=== PATIENT | male | born 1955 | race Caucasian/White ===

== ENCOUNTER → 2021-03-03 10:48 | Outpatient (BNVA) | payer BC, SELFPAY | PROVIDERS: Visit Provider Orthopaedic Surgery ==

== ENCOUNTER 2021-10-26 11:08 | Outpatient (REF) | payer MEDICARE, SELFPAY ==
--- NOTE | ~2021-10-26 | XR_ITS ---
EXAMINATION: XR HAND, RIGHT CLINICAL INFORMATION: Pain in right hand. COMPARISON: None TECHNIQUE: PA, lateral, and oblique views of the right hand. FINDINGS: There is no acute fracture or malalignment. There is moderate joint space narrowing of the radiocarpal joint with mild subchondral sclerosis. 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 There is adjacent soft tissue swelling. There is a flexion and radial angulation deformity at the 5th DIP joint. There is mild osteoarthritis of most of the rest of the IP joints. 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 Shcf-ui-taetacdn osteoarthritis of multiple additional joints as described above.
== END 2021-10-26 11:09 | disposition home or self-care (01) ==
LOC: HO.HOSX 11:08
PROVIDERS: PCP Internal Medicine; Visit Provider Orthopaedic Surgery
DX: M19.041 Primary osteoarthritis, right hand (principal); M19.042 Primary osteoarthritis, left hand
CPT/HCPCS: 73130; 99212

== ENCOUNTER 2023-10-19 07:28 | Outpatient (REF) | payer MEDICARE, SELFPAY ==
[2023-10-19 07:50] LABS: MANUAL DIFF FLAG NO
[2023-10-19 08:08] LABS: Basophils Percent Auto 0.6 % (0-2); Eosinophils Absolute Auto 0.2 X10*3/uL (0.0-0.4); Eosinophils Percent Auto 2.3 % (0-4); Hematocrit 37.5 % (42.0-52.0); Hemoglobin 13.8 g/dl (14.0-18.0); Imm Gran Abs Auto 0.03 X10*3/uL (0.00-0.03); Imm Gran Pct Auto 0.5 % (0.0-0.4); Lymphocytes Absolute Auto 1.7 X10*3/uL (1.2-4.9); Lymphocytes Percent Auto 26.2 % (20-40); Mean Corpuscular HGB Conc 36.8 g/dl (31.0-36.0); Mean Corpuscular Hemoglobin 34.2 pg (27.0-33.0); Mean Corpuscular Volume 92.8 fL (80.0-98.0); Mean Platelet Volume 9.4 fL (9.4-12.4); Monocytes Absolute Auto 0.5 X10*3/uL (0.1-1.2); Monocytes Percent Auto 7.4 % (2-11); Neutrophils Absolute Auto 4.2 x10*3/uL (2.0-8.3); Platelet Count 212 X10*3/uL (160-400); Red Blood Count 4.04 X10*6/uL (4.60-5.80); Red Cell Distribution Width 11.8 % (11.0-16.0); White Blood Count 6.6 X10*3/uL (4.8-10.8)
[2023-10-19 08:53] LABS: Alanine Aminotransferase 15 U/L (0-40); Alkaline Phosphatase 64 U/L (39-117); Anion Gap 11 (12-20); Aspartate Amino Transferase 20 U/L (5-37); Bilirubin Direct 0.3 mg/dL (0.0-0.5); Bilirubin Total 0.8 mg/dL (0.0-1.0); Blood Urea Nitrogen 11 mg/dL (9-16); Calcium 9.3 mg/dL (8.4-10.2); Carbon Dioxide 27 mmol/L (22-29); Chloride 98 mmol/L (96-108); Cholesterol 213 mg/dL (<200); Estimated Glomerular Filt Rate > 60; Glucose Fasting 97 mg/dL (60-99); HDL Cholesterol 101 mg/dL (>40); Iron 186 mcg/dL (45-160); LDL Cholesterol Calculated 104 mg/dL (<100); Percent Iron Saturation 72 % (15-50); Potassium 4.4 mmol/L (3.3-5.1); Sodium 132 mmol/L (135-145); Total Iron Binding Capacity 257 mcg/dL (228-428); Total Protein 6.6 g/dL (6.5-8.0); Triglycerides 40 mg/dL (<150); Unsaturated Iron Binding 71 ug/dL
[2023-10-19 09:02] LABS: PSA,Total (Free>4and<10) 2.58 ng/mL (0.00-4.00)
[2023-10-19 09:03] LABS: Ferritin 320 ng/mL (20-250); Thyroid Stimulating Hormone 1.79 uIU/mL (0.32-4.0)
== END 2023-10-19 07:29 | disposition home or self-care (01) ==
LOC: HO.LAB 07:28
PROVIDERS: PCP Internal Medicine; Visit Provider Internal Medicine
DX: Z00.00 Encounter for general adult medical examination without abnormal findings (principal); N40.0 Benign prostatic hyperplasia without lower urinary tract symptoms; K31.84 Gastroparesis; R14.2 Eructation; E78.00 Pure hypercholesterolemia, unspecified; Z12.5 Encounter for screening for malignant neoplasm of prostate
CPT/HCPCS: 36415; 80048; 80061; 80076; 82728; 83540; 84153; 84443; 85025

== ENCOUNTER 2023-10-24 13:31 | Outpatient (REF) | payer MEDICARE, SELFPAY ==
--- NOTE | ~2023-10-24 | CT_ITS ---
EXAMINATION: CT ABDOMEN AND PELVIS WITH CONTRAST CLINICAL INFORMATION: Gastroparesis and belching COMPARISON: None available. TECHNIQUE: Multidetector volumetric images were obtained from the superior aspect of the liver through the pubic symphysis following administration 85 mL of Omnipaque 350 intravenous contrast. Sagittal and coronal reformatted images were obtained on the technologist's workstation. Oral contrast: No This CT examination was performed using dose optimization techniques as appropriate, variously including the following: *Automated exposure control *Adjustment of mA and/or kV according to patient size (this includes techniques or standardized protocols for targeted exams where dose is matched to indication/reason for exam; i.e. extremities or head) *Use of iterative reconstruction technique DLP: 287 mGy-cm FINDINGS: LUNG BASES: The visualized lung bases are unremarkable. LIVER, GALLBLADDER, AND BILIARY TREE: There is a 6 mm too small to characterize focus in the lateral left lobe of the liver. There are tiny similar-appearing probable cysts are seen in the right lobe. No suspicious lesion or intrahepatic biliary dilatation. The gallbladder appears contracted. It is not completely evaluated. PANCREAS: Unremarkable. SPLEEN: Unremarkable. ADRENAL GLANDS: Unremarkable. KIDNEYS AND URETERS: The kidneys are normal in size, shape, and attenuation. No hydronephrosis, hydroureter, or calculi seen. No perinephric stranding. BLADDER: The bladder is decompressed and thick-walled. It is incompletely evaluated and I cannot exclude either a polyp or mass at the base of the bladder versus an appearance based on the posterior impressions from a heterogeneous prostate gland. GASTROINTESTINAL TRACT: No bowel obstruction or right or left lower quadrant inflammatory change. Fair amount of debris however is seen within the stomach compatible with the patient's history of gastroparesis. ABDOMINAL WALL: No significant hernia is appreciated. LYMPH NODES: Normal. VASCULAR: Aorta is atherosclerotic but nonaneurysmal. PELVIC VISCERA: Prominent heterogeneous appearing prostate. Please correlate with the patient's PSA and digital rectal examination. OSSEOUS STRUCTURES: Degenerative changes lumbar spine but no fracture. CT/CT abdomen pelvis w IV con IMPRESSION: Heterogeneous prominent prostate. Please see above comments. The gallbladder was decompressed. Fleischner guidelines were followed.
[2023-10-24] MEDS: Barium Sulfate Oral (Vanilla) 450 ML ORAL.SUSP 900 ML PO (15:34)
[2023-10-24] MEDS: iohexoL 350 MG/ML 100 ML INFUS..BTL IV (15:35)
== END 2023-10-24 13:32 | disposition home or self-care (01) ==
LOC: HO.CT 13:31
PROVIDERS: PCP Internal Medicine; Visit Provider Internal Medicine
DX: K31.84 Gastroparesis (principal); R14.2 Eructation
CPT/HCPCS: 74177; Q9967

== ENCOUNTER 2024-02-08 10:05 | Outpatient (REF) | payer MEDICARE, SELFPAY ==
[2024-02-08 12:03] LABS: Anion Gap 13 (12-20); Blood Urea Nitrogen 17 mg/dL (9-16); Calcium 9.3 mg/dL (8.4-10.2); Carbon Dioxide 29 mmol/L (22-29); Chloride 97 mmol/L (96-108); Estimated Glomerular Filt Rate > 60; Ferritin 357 ng/mL (20-250); Glucose Random 77 mg/dL (60-115); Iron 251 mcg/dL (45-160); Percent Iron Saturation 91 % (15-50); Potassium 4.2 mmol/L (3.3-5.1); Sodium 135 mmol/L (135-145); Total Iron Binding Capacity 276 mcg/dL (228-428); Unsaturated Iron Binding < 25 ug/dL
== END 2024-02-08 10:06 | disposition home or self-care (01) ==
LOC: HO.LAB 10:05
PROVIDERS: PCP Internal Medicine; Visit Provider Internal Medicine
DX: N40.0 Benign prostatic hyperplasia without lower urinary tract symptoms (principal); K31.84 Gastroparesis; E83.19 Other disorders of iron metabolism
CPT/HCPCS: 36415; 80048; 82728; 83540

== ENCOUNTER 2024-02-23 11:32 | Outpatient (REF) | payer MEDICARE, SELFPAY ==
[2024-02-23 12:04] LABS: MANUAL DIFF FLAG NO
[2024-02-23 12:21] LABS: Basophils Percent Auto 0.7 % (0-2); Eosinophils Absolute Auto 0.1 X10*3/uL (0.0-0.4); Eosinophils Percent Auto 1.1 % (0-4); Hematocrit 41.4 % (42.0-52.0); Hemoglobin 14.9 g/dl (14.0-18.0); Imm Gran Abs Auto 0.01 X10*3/uL (0.00-0.03); Imm Gran Pct Auto 0.2 % (0.0-0.4); Lymphocytes Absolute Auto 1.5 X10*3/uL (1.2-4.9); Lymphocytes Percent Auto 26.7 % (20-40); Mean Corpuscular Hemoglobin 32.7 pg (27.0-33.0); Mean Platelet Volume 9.8 fL (9.4-12.4); Monocytes Absolute Auto 0.4 X10*3/uL (0.1-1.2); Monocytes Percent Auto 7.2 % (2-11); Neutrophils Absolute Auto 3.5 x10*3/uL (2.0-8.3); Neutrophils Percent Auto 64.1 % (45-73); Platelet Count 173 X10*3/uL (160-400); Red Blood Count 4.55 X10*6/uL (4.60-5.80); Red Cell Distribution Width 11.8 % (11.0-16.0); White Blood Count 5.4 X10*3/uL (4.8-10.8)
[2024-02-23 13:12] LABS: Alanine Aminotransferase 16 U/L (0-40); Alkaline Phosphatase 63 U/L (39-117); Anion Gap 10 (12-20); Aspartate Amino Transferase 22 U/L (5-37); Bilirubin Direct 0.4 mg/dL (0.0-0.5); Blood Urea Nitrogen 17 mg/dL (9-16); Calcium 9.5 mg/dL (8.4-10.2); Carbon Dioxide 27 mmol/L (22-29); Chloride 101 mmol/L (96-108); Estimated Glomerular Filt Rate > 60; Glucose Random 83 mg/dL (60-115); Iron 203 mcg/dL (45-160); Percent Iron Saturation 85 % (15-50); Potassium 4.3 mmol/L (3.3-5.1); Sodium 134 mmol/L (135-145); Total Iron Binding Capacity 239 mcg/dL (228-428); Total Protein 6.5 g/dL (6.5-8.0); Unsaturated Iron Binding 36 ug/dL
[2024-02-23 13:15] LABS: Ferritin 358 ng/mL (20-250)
== END 2024-02-23 11:33 | disposition home or self-care (01) ==
LOC: HO.LAB 11:32
PROVIDERS: PCP Internal Medicine; Visit Provider Internal Medicine
DX: E83.19 Other disorders of iron metabolism (principal)
CPT/HCPCS: 36415; 80048; 80076; 82728; 83540; 85025

== ENCOUNTER → 2024-04-26 09:23 | Outpatient (BNV) | payer MEDICARE, SELFPAY | PROVIDERS: PCP Internal Medicine; Visit Provider Internal Medicine Medical Oncology | DX: E83.119 Hemochromatosis, unspecified (principal) | CPT/HCPCS: 99204; 99213 ==

== ENCOUNTER 2024-04-30 10:24 | Outpatient (REF) | payer MEDICARE, SELFPAY | END 2024-04-30 10:25 | disposition home or self-care (01) | LOC: HO.BBR 10:24 | PROVIDERS: Visit Provider Internal Medicine Medical Oncology | DX: Z13.89 Encounter for screening for other disorder (principal) ==

== ENCOUNTER 2024-05-31 10:12 | Outpatient (REF) | payer MEDICARE, SELFPAY ==
[2024-05-31 11:10] LABS: MANUAL DIFF FLAG NO
[2024-05-31 11:21] LABS: Basophils Percent Auto 0.4 % (0-2); Eosinophils Absolute Auto 0.1 X10*3/uL (0.0-0.4); Eosinophils Percent Auto 1.7 % (0-4); Hematocrit 40.5 % (42.0-52.0); Imm Gran Abs Auto 0.01 X10*3/uL (0.00-0.03); Imm Gran Pct Auto 0.2 % (0.0-0.4); Lymphocytes Absolute Auto 1.1 X10*3/uL (1.2-4.9); Lymphocytes Percent Auto 23.1 % (20-40); Mean Corpuscular Hemoglobin 34.7 pg (27.0-33.0); Mean Corpuscular Volume 93.8 fL (80.0-98.0); Mean Platelet Volume 10.1 fL (9.4-12.4); Monocytes Absolute Auto 0.4 X10*3/uL (0.1-1.2); Monocytes Percent Auto 7.6 % (2-11); Neutrophils Absolute Auto 3.1 x10*3/uL (2.0-8.3); Platelet Count 178 X10*3/uL (160-400); Red Blood Count 4.32 X10*6/uL (4.60-5.80); White Blood Count 4.6 X10*3/uL (4.8-10.8)
[2024-05-31 21:28] LABS: Ferritin 257 ng/mL (20-250); Iron 171 mcg/dL (45-160); Percent Iron Saturation 73 % (15-50); Total Iron Binding Capacity 234 mcg/dL (228-428); Unsaturated Iron Binding 63 ug/dL
== END 2024-05-31 10:13 | disposition home or self-care (01) ==
LOC: HO.BBR 10:12
PROVIDERS: PCP Internal Medicine; Visit Provider Internal Medicine Medical Oncology
DX: E83.110 Hereditary hemochromatosis (principal)
CPT/HCPCS: 36415; 82728; 83540; 85025

== ENCOUNTER 2024-07-04 08:53 | Outpatient (REF) | payer MEDICARE, SELFPAY ==
[2024-07-04 09:15] LABS: MANUAL DIFF FLAG NO
[2024-07-04 09:19] LABS: Basophils Percent Auto 0.5 % (0-2); Eosinophils Absolute Auto 0.1 X10*3/uL (0.0-0.4); Eosinophils Percent Auto 2.3 % (0-4); Imm Gran Abs Auto 0.01 X10*3/uL (0.00-0.03); Imm Gran Pct Auto 0.2 % (0.0-0.4); Lymphocytes Absolute Auto 1.1 X10*3/uL (1.2-4.9); Lymphocytes Percent Auto 24.6 % (20-40); Mean Corpuscular HGB Conc 37.5 g/dl (31.0-36.0); Mean Corpuscular Hemoglobin 34.7 pg (27.0-33.0); Mean Corpuscular Volume 92.6 fL (80.0-98.0); Mean Platelet Volume 9.6 fL (9.4-12.4); Monocytes Absolute Auto 0.3 X10*3/uL (0.1-1.2); Monocytes Percent Auto 6.4 % (2-11); Neutrophils Absolute Auto 2.9 x10*3/uL (2.0-8.3); Platelet Count 172 X10*3/uL (160-400); Red Blood Count 4.32 X10*6/uL (4.60-5.80); Red Cell Distribution Width 11.5 % (11.0-16.0); White Blood Count 4.4 X10*3/uL (4.8-10.8)
[2024-07-04 10:13] LABS: Iron 178 mcg/dL (45-160); Percent Iron Saturation 72 % (15-50); Total Iron Binding Capacity 247 mcg/dL (228-428); Unsaturated Iron Binding 69 ug/dL
[2024-07-04 10:20] LABS: Ferritin 208 ng/mL (20-250)
== END 2024-07-04 08:54 | disposition home or self-care (01) ==
LOC: HO.BBR 08:53
PROVIDERS: PCP Internal Medicine; Visit Provider Internal Medicine Medical Oncology
DX: E83.110 Hereditary hemochromatosis (principal)
CPT/HCPCS: 36415; 82728; 83540; 85025

== ENCOUNTER 2024-08-13 09:09 | Outpatient (REF) | payer MEDICARE, SELFPAY ==
[2024-08-13 09:29] LABS: MANUAL DIFF FLAG NO
[2024-08-13 09:32] LABS: Basophils Percent Auto 0.6 % (0-2); Eosinophils Absolute Auto 0.1 X10*3/uL (0.0-0.4); Eosinophils Percent Auto 1.2 % (0-4); Hematocrit 40.6 % (42.0-52.0); Hemoglobin 15.1 g/dl (14.0-18.0); Imm Gran Abs Auto 0.01 X10*3/uL (0.00-0.03); Imm Gran Pct Auto 0.2 % (0.0-0.4); Lymphocytes Absolute Auto 1.4 X10*3/uL (1.2-4.9); Lymphocytes Percent Auto 29.2 % (20-40); Mean Corpuscular HGB Conc 37.2 g/dl (31.0-36.0); Mean Corpuscular Hemoglobin 34.3 pg (27.0-33.0); Mean Corpuscular Volume 92.3 fL (80.0-98.0); Mean Platelet Volume 9.3 fL (9.4-12.4); Monocytes Absolute Auto 0.3 X10*3/uL (0.1-1.2); Monocytes Percent Auto 6.6 % (2-11); Neutrophils Percent Auto 62.2 % (45-73); Platelet Count 167 X10*3/uL (160-400); Red Cell Distribution Width 11.3 % (11.0-16.0); White Blood Count 4.9 X10*3/uL (4.8-10.8)
[2024-08-13 10:49] LABS: Iron 159 mcg/dL (45-160); Percent Iron Saturation 67 % (15-50); Total Iron Binding Capacity 239 mcg/dL (228-428); Unsaturated Iron Binding 80 ug/dL
[2024-08-13 10:56] LABS: Ferritin 156 ng/mL (20-250)
== END 2024-08-13 09:10 | disposition home or self-care (01) ==
LOC: HO.BBR 09:09
PROVIDERS: PCP Internal Medicine; Visit Provider Internal Medicine Medical Oncology
DX: E83.110 Hereditary hemochromatosis (principal)
CPT/HCPCS: 36415; 82728; 83540; 85025

== ENCOUNTER 2024-09-17 09:06 | Outpatient (REF) | payer MEDICARE, SELFPAY ==
[2024-09-17 09:26] LABS: Basophils Percent Auto 0.7 % (0-2); Eosinophils Absolute Auto 0.1 X10*3/uL (0.0-0.4); Eosinophils Percent Auto 1.2 % (0-4); Hemoglobin 14.7 g/dl (14.0-18.0); Lymphocytes Absolute Auto 1.3 X10*3/uL (1.2-4.9); Lymphocytes Percent Auto 29.6 % (20-40); MANUAL DIFF FLAG NO; Mean Corpuscular HGB Conc 36.8 g/dl (31.0-36.0); Mean Corpuscular Hemoglobin 33.9 pg (27.0-33.0); Mean Corpuscular Volume 92.2 fL (80.0-98.0); Mean Platelet Volume 9.4 fL (9.4-12.4); Monocytes Absolute Auto 0.3 X10*3/uL (0.1-1.2); Monocytes Percent Auto 6.4 % (2-11); Neutrophils Absolute Auto 2.6 x10*3/uL (2.0-8.3); Neutrophils Percent Auto 62.1 % (45-73); Platelet Count 183 X10*3/uL (160-400); Red Blood Count 4.34 X10*6/uL (4.60-5.80); Red Cell Distribution Width 11.5 % (11.0-16.0); White Blood Count 4.2 X10*3/uL (4.8-10.8)
[2024-09-17 11:27] LABS: Iron 135 mcg/dL (45-160); Percent Iron Saturation 53 % (15-50); Total Iron Binding Capacity 253 mcg/dL (228-428); Unsaturated Iron Binding 118 ug/dL
[2024-09-17 11:40] LABS: Ferritin 110 ng/mL (20-250)
== END 2024-09-17 09:07 | disposition home or self-care (01) ==
LOC: HO.BBR 09:06
PROVIDERS: PCP Internal Medicine; Visit Provider Internal Medicine Medical Oncology
DX: E83.110 Hereditary hemochromatosis (principal)
CPT/HCPCS: 36415; 82728; 83540; 85025

== ENCOUNTER 2024-10-22 09:00 | Outpatient (REF) | payer MEDICARE, SELFPAY ==
[2024-10-22 09:16] LABS: MANUAL DIFF FLAG NO
[2024-10-22 09:17] LABS: Basophils Percent Auto 0.6 % (0-2); Eosinophils Absolute Auto 0.1 X10*3/uL (0.0-0.4); Eosinophils Percent Auto 1.8 % (0-4); Hematocrit 42.7 % (42.0-52.0); Hemoglobin 15.6 g/dl (14.0-18.0); Imm Gran Abs Auto 0.01 X10*3/uL (0.00-0.03); Imm Gran Pct Auto 0.2 % (0.0-0.4); Lymphocytes Absolute Auto 1.5 X10*3/uL (1.2-4.9); Lymphocytes Percent Auto 30.2 % (20-40); Mean Corpuscular HGB Conc 36.5 g/dl (31.0-36.0); Mean Corpuscular Hemoglobin 33.7 pg (27.0-33.0); Mean Corpuscular Volume 92.2 fL (80.0-98.0); Mean Platelet Volume 9.3 fL (9.4-12.4); Monocytes Absolute Auto 0.3 X10*3/uL (0.1-1.2); Monocytes Percent Auto 6.5 % (2-11); Neutrophils Percent Auto 60.7 % (45-73); Platelet Count 183 X10*3/uL (160-400); Red Blood Count 4.63 X10*6/uL (4.60-5.80); Red Cell Distribution Width 11.6 % (11.0-16.0); White Blood Count 4.9 X10*3/uL (4.8-10.8)
[2024-10-22 09:59] LABS: Iron 206 mcg/dL (45-160); Percent Iron Saturation 75 % (15-50); Total Iron Binding Capacity 273 mcg/dL (228-428); Unsaturated Iron Binding 67 ug/dL
[2024-10-22 10:18] LABS: Ferritin 57 ng/mL (20-250)
--- OUTSIDE RECORDS SUMMARY | 2024-10-23 19:10 | XMS_ITS ---
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
--- OUTSIDE RECORDS SUMMARY | 2024-10-23 19:10 | XMS_ITS ---
Author Organization Ralf Landon DO, FACP Address [address] [place] [phone] Care Team Providers Care Stenciler Name Role Phone Ralf Landon Primary Care Provider ALLERGIES Allergen (clinical drug ingredient) Drug/Non Drug Allergy documented on EMR Reaction Allergy Type Onset Date Status tamsulosin Flomax retrograde ejaculation Drug Allergy Active REASON FOR REFERRAL Reason RUQ mass Diagnosis 1 Right upper quadrant abdominal mass (R19.01) Referral Organization Ralf Collins O, FACP Referring Provider First Name Ralf Referring Provider Last Name Barbi Referring Provider Speciality Internal M edicine Referred Provider Bam Chino Referred Provider Specialty General Surg mp General Notes Sulma Dorado 024 10:52:06 AM EST > referral faxed; [place] [facility] [facility] [place] patient to schedule appointment; patient aware., Cheryl Pennington 10/01/2024 02:30:30 PM EST > Marely and Dr. Chino's office said she spoke with Berna and when she reached out to the patient that the patient said he will call back when he is ready. Referral Priority Routine REASON FOR VISIT 6 month f/u, Follow up Hereditary hemochromatosis, Gastroparesis MEDICATIONS Medication SIG (Take, Route, Frequency, Duration) Notes Start Date End Date Status Motegrity 1 MG 1 tablet Orally Once a day Active Vitamin D (Cholecalciferol) 50 MCG (1999) 1 capsule Orally Once a day Active SOCIAL HISTORY Tobacco Use: Social History Observation Description Date Details (start date - stop date) Never Smoker NA - NA Sex Assigned At : Social History Observation Description Sex Assigned At Unknown Tobacco Use/Smoking Question Answer Notes Patient is a nonsmoker Additional Findings: Tobacco Non-User Cu rrent non-smoker, currently using no form of tobacco Alcohol Screen Question Answer Notes Did you have a drink contain ing alcohol in the past year? Yes How often did you have a dri nk containing alcohol in the past year? 2 to 3 times a week (3 points) How many drinks did you have on a typical day when you were drinking in the past year? 1 or 2 drinks (0 point) How often did you have 6 or more drinks on one occasion in the past year? Never (0 point) Points 3 Interpretation Negative Encounters Encounter Location Date Provider Diagnosis Ralf Landon DO, [address] [phone] 09/20/2024 Ralf Landon Hereditary hemochromatosis E83.110 ; Gastroparesis K31.84 ; Benign non-nodular prostatic hyperplasia without lower urinary tract symptoms N40.0 and Right upper quadrant abdominal mass R19.01 ASSESSMENTS Encounter Date Diagnosis Assessment Notes Treatment Notes Treatment Clinical Notes 09/20/2024 Hereditary hemochromatosis (ICD-10 - E83.110) Follow up with Hematology 09/20/2024 Gastroparesis (ICD-1 0 - K31.84) Follow up with GI. EGD next month. 09/20/2024 Benign non-nodular prostatic hyperplasia without lower urinary tract symptoms (ICD-10 - N40.0) 09/20/2024 Right upper quadrant abdominal mass (ICD-10 - R19.01) PLAN OF TREATMENT Medication Medication Name Sig Start Date Stop Date Notes Motegrity 1 MG 1 tablet Orally Once a day Vitamin D (Cholecalciferol) 50 MCG (1999 UT) 1 capsule Orally Once a day Treatment Notes Assessment Notes Hereditary hemochromatosis Follow up wit h Hematology Gastroparesis Follow up with GI. E GD next month. Pending Test Test Name Order Date CBC w DIFF 09/20/2024 LIPOPROTEIN FRACTIONATION (LIPID PANEL) 09/20/2024 PROFILE, FASTING 09/20/2024 TSH (THYROID STIMULATING HORMONE) 2023 PSA,Total (Free>4and<10) 09/20/2024 Referrals Referral Date Details RUQ Bam butts Ma rtinez Next Appt Details Follow Up: 4 Months, Reason: H&P,review lab work Provider Name:Ralf ruiz, 02/04/2025 09:00:00 AM, [address] [place] [address], [phone], Progress Notes * Examination Category Sub-Category Detail Notes General Examination GENERAL APPEARANCE: in no ac duckwater distress, well developed, well nourished LUNGS: breathing comfortabl y at rest MUSCULOSKELETAL: PSYCH: alert, oriented, cog nitive function intact History and Physical Notes * HPI (History of Present Illness) Category Sub-Category Detail Notes New symptom(s) Telehealth Location of provider:: Pro ko's home address Location of patient:: Address listed in demographics for today's visit Patient identification confirmed using:: Name, Telehealth method:: Video co nference where patient is visible to the provider of care Consent:: Patient verbally c onsented to treatment, Patient verbally consented to billing insurance company, Patient informed of any privacy concerns related to method of visit Total time spent with patient (mins): 25 Disclaimer: This Telehealth visit is being conducted per CDC recommendations due to the COVID-19 outbreak. Consultation Request Notes Referral Date Referring Provider Referred Provider Elizabeth bonilla 09/20/2024 Ralf Landon Francis RUQ mas s
--- OUTSIDE RECORDS SUMMARY | 2024-10-23 19:11 | XMS_ITS | Patient Health Record ---
Author Organization Ralf Landon DO, FAC Address [address] [place] [phone] Care Team Providers Care Copy Worker Name Role Phone Ralf Landon Primary Care Provider ALLERGIES Allergen (clinical drug ingredient) Drug/Non Drug Allergy documented on EMR Reaction Allergy Type Onset Date Status tamsulosin Flomax retrograde ejaculation Drug Allergy Active RESULTS Component Value Reference Range Notes CT abdomen pelvis w con Reviewed date:11/08/2023 11:14:33 PM Interpretation:Abnormal Performing Lab: Notes/Report: [address] [address] [address] Scan Report Signed Patient: Yusef Novak MR#: [id number] 66 : 1955 Acct:[id number] Age/Sex: 68 / M ADM Date: 10/24/23 Loc: HO.CT Attending Dr: Ralf Landon DO Ordering Physician: Ralf Landon DO Date of Service: 10/24/23 Procedure(s): CT abdomen pelvis w IV con Accession Number(s): [id number] cc: DR Dennis FLORES; Ralf Landon DO EXAMINATION: CT ABDOMEN AND PELVIS WITH CONTRAST CLINICAL INFORMATION: Gastroparesis and belching COMPARISON: None available. TECHNIQUE: Multidetector volumetric images were obtained from the superior aspect of the liver through the pubic symphysis following administration 85 mL of Omnipaque 350 intravenous contrast. Sagittal and coronal reformatted images were obtained on the technologist's workstation. Oral contrast: No This CT examination was performed using dose optimization techniques as appropriate, variously including the following: *Automated exposure control *Adjustment of mA and/or kV according to patient size (this includes techniques or standardized protocols for targeted exams where dose is matched to indication/reason for exam; i.e. extremities or head) *Use of iterative reconstruction technique DLP: 287 mGy-cm FINDINGS: LUNG BASES: The visualized lung bases are unremarkable. LIVER, GALLBLADDER, AND BILIARY TREE: There is a 6 mm too small to characterize focus in the lateral left lobe of the liver. There are tiny similar-appearing probable cysts are seen in the right lobe. No suspicious lesion or intrahepatic biliary dilatation. The gallbladder appears contracted. It is not completely evaluated. PANCREAS: Unremarkable. SPLEEN: Unremarkable. ADRENAL GLANDS: Unremarkable. KIDNEYS AND URETERS: The kidneys are normal in size, shape, and attenuation. No hydronephrosis, hydroureter, or calculi seen. No perinephric stranding. BLADDER: The bladder is decompressed and thick-walled. It is incompletely evaluated and I cannot exclude either a polyp or mass at the base of the bladder versus an appearance based on the posterior impressions from a heterogeneous prostate gland. GASTROINTESTINAL TRACT: No bowel obstruction or right or left lower quadrant inflammatory change. Fair amount of debris however is seen within the stomach compatible with the patient's history of gastroparesis. ABDOMINAL WALL: No significant hernia is appreciated. LYMPH NODES: Normal. VASCULAR: Aorta is atherosclerotic but nonaneurysmal. PELVIC VISCERA: Prominent heterogeneous appearing prostate. Please correlate with the patient's PSA and digital rectal examination. OSSEOUS STRUCTURES: Degenerative changes lumbar spine but no fracture. CT/CT abdomen pelvis w IV con IMPRESSION: Heterogeneous prominent prostate. Please see above comments. The gallbladder was decompressed. Fleischner guidelines were followed. Dictated By: Andrea Porras MD Signed By: <Electronically signed by Andrea Porras MD in OV> 11/08/23 1422 DD/ 1535 TD/TT: Ice Skating Teacher: Basic Metabolic Panel Reviewed date:02/08/2024 01:24:35 PM Interpretation:Normal Performing Lab:[facility], [address] [place] [phone] Notes/Report: Sodium 135 135-145 mmol/L Potassium 4.2 3.3-5.1 mmol/L Chloride 97 96-108 mmol/L Carbon Dioxide 29 22-29 mmol/L Anion Gap 13 12-20 Blood Urea Nitrogen 17 9-16 mg/dL Creatinine 1.03 0.5-1.4 mg/dL Estimated Glomerular Filt Rate > 60 NOTE: For -Citizen Of [place] individuals, multiply the result by 1.210. Chronic Kidney Disease: Estimated GFR < 60 mL/min/1.73m2 Severe Kidney Disease: Estimated GFR < 15 mL/min/1.73m2 Glucose Random 77 60-115 mg/dL Calcium 9.3 8.4-10.2 mg/dL IRON PROFILE Reviewed date:02/08/2024 01:25:09 PM Interpretation:Abnormal Performing Lab:[facility], [address] [place] [phone] Notes/Report: Iron 251 45-160 mcg/dL Total Iron Binding Capacity 276 228-428 mcg/d L Percent Iron Saturation 91 15-50 % Unsaturated Iron Binding < 25 Ferritin Reviewed date:02/08/2024 01:24:35 PM Interpretation:Abnormal Performing Lab:[facility], [address] [place] [phone] Notes/Report: Ferritin 357 20-250 ng/mL Complete Blood Count Auto Di ff Reviewed date:02/23/2024 12:32:10 PM Interpretation:Normal Performing Lab:[facility], [address] [place] [phone] Notes/Report: White Blood Count 5.4 4.8-10.8 X10*3/uL Red Blood Count 4.55 4.60-5.80 X10*6/uL Hemoglobin 14.9 14.0-18.0 g/dl Hematocrit 41.4 42.0-52.0 % Mean Corpuscular Volume 91.0 80.0-98.0 fL Mean Corpuscular Hemoglobin 32.7 27.0-33.0 pg Mean Corpuscular HGB Conc 36.0 31.0-36.0 g/dl Red Cell Distribution Width 11.8 11.0-16.0 % Platelet Count 173 160-400 X10*3/uL Mean Platelet Volume 9.8 9.4-12.4 fL Neutrophils Percent Auto 64.1 45-73 % Imm Gran Pct Auto 0.2 0.0-0.4 % Lymphocytes Percent Auto 26.7 20-40 % Monocytes Percent Auto 7.2 2-11 % Eosinophils Percent Auto 1.1 0-4 % Basophils Percent Auto 0.7 0-2 % NRBC Pct Auto 0.0 0.0-0.2 /100WBC Neutrophils Absolute Auto 3.5 2.0-8.3 x10*3/u L Imm Gran Abs Auto 0.01 0.00-0.03 X10*3/uL Lymphocytes Absolute Auto 1.5 1.2-4.9 X10*3/u L Monocytes Absolute Auto 0.4 0.1-1.2 X10*3/uL Eosinophils Absolute Auto 0.1 0.0-0.4 X10*3/u L Basophils Absolute Auto 0.0 0.0-0.2 X10*3/uL NRBC Abs Auto 0.000 0.0-0.012 X10*3/uL Liver Panel Reviewed date:02/23/2024 02:02:33 PM Interpretation:Normal Performing Lab:[address] [phone] Notes/Report: Bilirubin Total 1.0 0.0-1.0 mg/dL Bilirubin Direct 0.4 0.0-0.5 mg/dL Aspartate Amino Transferase 22 5-37 U/L Alanine Aminotransferase 16 0-40 U/L Total Protein 6.5 6.5-8.0 g/dL Albumin Level 4.0 3.5-5.0 g/dL Alkaline Phosphatase 63 39-117 U/L Basic Metabolic Panel Reviewed date:02/23/2024 02:02:33 PM Interpretation:Abnormal Performing Lab:[address] [phone] Notes/Report: Sodium 134 135-145 mmol/L Potassium 4.3 3.3-5.1 mmol/L Chloride 101 96-108 mmol/L Carbon Dioxide 27 22-29 mmol/L Anion Gap 10 12-20 Blood Urea Nitrogen 17 9-16 mg/dL Creatinine 0.97 0.5-1.4 mg/dL Estimated Glomerular Filt Rate > 60 NOTE: For -Citizen Of [place] individuals, multiply the result by 1.210. Chronic Kidney Disease: Estimated GFR < 60 mL/min/1.73m2 Severe Kidney Disease: Estimated GFR < 15 mL/min/1.73m2 Glucose Random 83 60-115 mg/dL Calcium 9.5 8.4-10.2 mg/dL IRON PROFILE Reviewed date:02/23/2024 02:02:33 PM Interpretation:Abnormal Performing Lab:[facility], [address] [place] [phone] Notes/Report: Iron 203 45-160 mcg/dL Total Iron Binding Capacity 239 228-428 mcg/d L Percent Iron Saturation 85 15-50 % Unsaturated Iron Binding 36 Ferritin Reviewed date:02/23/2024 02:02:57 PM Interpretation:Abnormal Performing Lab:[facility], [address] [place] [phone] Notes/Report: Ferritin 358 20-250 ng/mL Complete Blood Count Auto Di ff Reviewed date:2024 10:33:33 AM Interpretation:Abnormal Performing Lab:[facility], [address] [place] [phone] Notes/Report: White Blood Count 4.9 4.8-10.8 X10*3/uL Red Blood Count 4.58 4.60-5.80 X10*6/uL Hemoglobin 15.3 14.0-18.0 g/dl Hematocrit 42.0 42.0-52.0 % Mean Corpuscular Volume 91.7 80.0-98.0 fL Mean Corpuscular Hemoglobin 33.4 27.0-33.0 pg Mean Corpuscular HGB Conc 36.4 31.0-36.0 g/dl Red Cell Distribution Width 12.0 11.0-16.0 % Platelet Count 183 160-400 X10*3/uL Mean Platelet Volume 9.8 9.4-12.4 fL Neutrophils Percent Auto 63.4 45-73 % Imm Gran Pct Auto 0.2 0.0-0.4 % Lymphocytes Percent Auto 26.5 20-40 % Monocytes Percent Auto 6.9 2-11 % Eosinophils Percent Auto 2.0 0-4 % Basophils Percent Auto 1.0 0-2 % NRBC Pct Auto 0.0 0.0-0.2 /100WBC Neutrophils Absolute Auto 3.1 2.0-8.3 x10*3/u L Imm Gran Abs Auto 0.01 0.00-0.03 X10*3/uL Lymphocytes Absolute Auto 1.3 1.2-4.9 X10*3/u L Monocytes Absolute Auto 0.3 0.1-1.2 X10*3/uL Eosinophils Absolute Auto 0.1 0.0-0.4 X10*3/u L Basophils Absolute Auto 0.1 0.0-0.2 X10*3/uL NRBC Abs Auto 0.000 0.0-0.012 X10*3/uL Comprehensive Met. Panel Reviewed date:2024 11:49:01 AM Interpretation:Abnormal Performing Lab:[facility], [address] [place] [phone] Notes/Report: Sodium 136 135-145 mmol/L Potassium 4.5 3.3-5.1 mmol/L Chloride 102 96-108 mmol/L Carbon Dioxide 29 22-29 mmol/L Anion Gap 10 12-20 Blood Urea Nitrogen 14 9-16 mg/dL Creatinine 1.04 0.5-1.4 mg/dL Creatinine Clr Calc Pharmacy 64.9 eGFR (calculated from the MDRD study equation) and eCrCl (calculated from the Cockcroft-Gault equation) are based on different parameters and may not yield comparable results. If eCrCl result is absurd, please check patient's height/weight. Estimated Glomerular Filt Rate > 60 NOTE: For -Citizen [place] individuals, multiply the result by 1.210. Chronic Kidney Disease: Estimated GFR < 60 mL/min/1.73m2 Severe Kidney Disease: Estimated GFR < 15 mL/min/1.73m2 Glucose Random 78 60-115 mg/dL Calcium 9.9 8.4-10.2 mg/dL Bilirubin Total 1.3 0.0-1.0 mg/dL Aspartate Amino Transferase 24 5-37 U/L Alanine Aminotransferase 17 0-40 U/L Total Protein 6.6 6.5-8.0 g/dL Albumin Level 4.1 3.5-5.0 g/dL Alkaline Phosphatase 63 39-117 U/L IRON PROFILE Reviewed date:2024 11:49:01 AM Interpretation:Abnormal Performing Lab:[facility], [address] [place] [phone] Notes/Report: Iron 254 45-160 mcg/dL Total Iron Binding Capacity 279 228-428 mcg/d L Percent Iron Saturation 91 15-50 % Unsaturated Iron Binding < 25 Ferritin Reviewed date:2024 11:49:01 AM Interpretation:Abnormal Performing Lab:[facility], [address] [place] [phone] Notes/Report: Ferritin 377 20-250 ng/mL Alpha Fetoprotein Reviewed date:04/29/2024 01:02:20 PM Interpretation:Normal Performing Lab:[address] [phone] Notes/Report: Alpha Fetoprotein 5.2 <6.1 ng/mL This test was performed using the Christie Mims chemiluminescent method. Values obtained from different assay methods cannot be used interchangeably. AFP levels, regardless of value, should not be interpreted as absolute evidence of the presence or absence of disease. THIS TEST WAS PERFORMED AT: [facility] [address] [place] [phone] MD Harjinder FERRO Reviewed date:2024 10:32:55 AM Interpretation:Hold Performing Lab:[facility], [address] [place] [phone] Notes/Report: Harjinder Vaz See Note Specimen held untested for 24 hours; Call to request Chemistry testing. Complete Blood Count Auto Di ff Reviewed date:08/27/2024 12:41:55 PM Interpretation:Abnormal Performing Lab:[address] [phone] Notes/Report: White Blood Count 5.3 4.8-10.8 X10*3/uL Red Blood Count 4.24 4.60-5.80 X10*6/uL Hemoglobin 14.6 14.0-18.0 g/dl Hematocrit 39.1 42.0-52.0 % Mean Corpuscular Volume 92.2 80.0-98.0 fL Mean Corpuscular Hemoglobin 34.4 27.0-33.0 pg Mean Corpuscular HGB Conc 37.3 31.0-36.0 g/dl Red Cell Distribution Width 11.9 11.0-16.0 % Platelet Count 200 160-400 X10*3/uL Mean Platelet Volume 9.4 9.4-12.4 fL Neutrophils Percent Auto 68.9 45-73 % Imm Gran Pct Auto 0.4 0.0-0.4 % Lymphocytes Percent Auto 22.1 20-40 % Monocytes Percent Auto 7.2 2-11 % Eosinophils Percent Auto 0.8 0-4 % Basophils Percent Auto 0.6 0-2 % NRBC Pct Auto 0.0 0.0-0.2 /100WBC Neutrophils Absolute Auto 3.6 2.0-8.3 x10*3/u L Imm Gran Abs Auto 0.02 0.00-0.03 X10*3/uL Lymphocytes Absolute Auto 1.2 1.2-4.9 X10*3/u L Monocytes Absolute Auto 0.4 0.1-1.2 X10*3/uL Eosinophils Absolute Auto 0.0 0.0-0.4 X10*3/u L Basophils Absolute Auto 0.0 0.0-0.2 X10*3/uL NRBC Abs Auto 0.000 0.0-0.012 X10*3/uL Comprehensive Met. Panel Reviewed date:08/27/2024 12:41:55 PM Interpretation:Normal Performing Lab:[facility], [address] [place] [phone] Notes/Report: Sodium 135 135-145 mmol/L Potassium 4.4 3.3-5.1 mmol/L Chloride 102 96-108 mmol/L Carbon Dioxide 26 22-29 mmol/L Anion Gap 11 12-20 Blood Urea Nitrogen 12 9-16 mg/dL Creatinine 1.06 0.5-1.4 mg/dL Creatinine Clr Calc Pharmacy 64.1 eGFR (calculated from the MDRD study equation) and eCrCl (calculated from the Cockcroft-Gault equation) are based on different parameters and may not yield comparable results. If eCrCl result is absurd, please check patient's height/weight. Estimated Glomerular Filt Rate > 60 NOTE: For -Citizen [place] individuals, multiply the result by 1.210. Chronic Kidney Disease: Estimated GFR < 60 mL/min/1.73m2 Severe Kidney Disease: Estimated GFR < 15 mL/min/1.73m2 Glucose Random 95 60-115 mg/dL Calcium 10.1 8.4-10.2 mg/dL Bilirubin Total 0.8 0.0-1.0 mg/dL Aspartate Amino Transferase 23 5-37 U/L Alanine Aminotransferase 16 0-40 U/L Total Protein 7.0 6.5-8.0 g/dL Albumin Level 4.3 3.5-5.0 g/dL Alkaline Phosphatase 55 39-117 U/L IRON PROFILE Reviewed date:08/27/2024 12:41:55 PM Interpretation:Abnormal Performing Lab:[facility], [address] [place] [phone] Notes/Report: Iron 137 45-160 mcg/dL Total Iron Binding Capacity 267 228-428 mcg/d L Percent Iron Saturation 51 15-50 % Unsaturated Iron Binding 130 Ferritin Reviewed date:08/27/2024 12:41:55 PM Interpretation:Normal Performing Lab:[facility], [address] [place] [phone] Notes/Report: Ferritin 91 20-250 ng/mL Alpha Fetoprotein Reviewed date:08/29/2024 11:20:13 AM Interpretation:Normal Performing Lab:[facility], [address] [place] [phone] Notes/Report: Alpha Fetoprotein 5.8 <6.1 ng/mL This test was performed using the Christie Mims chemiluminescent method. Values obtained from different assay methods cannot be used interchangeably. AFP levels, regardless of value, should not be interpreted as absolute evidence of the presence or absence of disease. THIS TEST WAS PERFORMED AT: [facility] [address] [place] [phone] MD Harjinder FERRO Reviewed date:08/27/2024 12:41:55 PM Interpretation:Hold Performing Lab:[facility], [address] [place] [phone] Notes/Report: Harjinder Vaz See Note Specimen held untested for 24 hours; Call to request Chemistry testing. REASON FOR REFERRAL Reason Gastroparesis Diagnosis 1 Gastroparesis (K31.8 4) Referral Organization Ralf Carpenter, FACP Referring Provider First Name Ralf Referring Provider Last Name Barbi Referring Provider Speciality Internal M edicine Referred Provider Annabelle Cardoso Referred Provider Specialty Gastroentero logy General Notes Cehryl Pennington 11:45:14 AM EST > Referral faxed prior to scheduling. Patient will schedule this appointment himself., Sulma Dorado 03/15/2024 10:52:59 AM EDT > 03/15/2024 office note, 02/23/2024 and 05/08/2021 lab reports, 2018 colonoscopy report faxed to specialist. Referral Priority Routine Reason Hereditary hemochrom atosis Diagnosis 1 Hereditary hemochrom atosis (E83.110) Referral Organization Ralf Carpenter FACP Referring Provider First Name Ralf Referring Provider Uriel Name Barbi Ref[facility] Referred Provider Vidya Donnelly Referred Provider Specialty Hematology/O ncology General Notes Cheryl Pennington 4 04:28:31 PM EDT > Referral and notes faxed to [phone] Referral Priority Routine Reason Hereditary hemochrom atosis Diagnosis 1 Hereditary hemochrom atosis (E83.110) Referral Organization Ralf Carpenter FACP Referring Provider First Name Ralf Referring Provider Uriel Name Barbi [facility] Referred Provider Sherrie John Referred Provider Specialty Hematology/O ncology General Notes Cheryl Pennington 4 04:11:42 PM EDT > Referral faxed prior to scheduling, Cheryl Pennington 04/10/2024 09:30:18 AM EDT > Dr. Donnelly's office will contact patient and patient is aware. Referral Priority Routine Referral Appointment Date 2024 Reason RUQ mass Diagnosis 1 Right upper quadrant abdominal mass (R19.01) Referral Organization Ralf Carpenter FACP Referring Provider First Name Ralf Referring Provider Uriel Name Barbi Referring Provider [facility] Internal edicine Referred Provider Bam Chino Referred Provider Specialty General Surg mp General Notes Sulma Dorado 024 10:52:06 AM EST > referral faxed; Berna @ [facility] will call patient to schedule appointment; patient aware., Cheryl Pennington 10/01/2024 02:30:30 PM EST > Marely and Dr. Chino's office said she spoke with Berna and when she reached out to the patient that the patient said he will call back when he is ready. Referral Priority Routine Reason Right foot pain with weight-bearing/ambulating Diagnosis 1 Right foot pain (M79 .671) Referral Organization Ralf Carpenter FACP Referring Provider First Name Ralf Referring Provider Uriel Name Barbi Referring Provider Speciality Internal edicine Referred Provider Sheldon Cadena Referred Provider Specialty Physical The rapist General Notes Sulma Dorado 024 12:46:23 PM EST > referral initiated at patient's request. Referral faxed. Referral Priority Routine Referral Appointment Date 10/02/2024 MEDICATIONS Medication SIG (Take, Route, Frequency, Duration) Notes Start Date End Date Status Motegrity 1 MG 1 tablet Orally Once a day Active Vitamin D (Cholecalciferol) 50 MCG (1999 UT) 1 capsule Orally Once a day Active IMMUNIZATIONS Vaccine Route Administration Date Status Comme nts Hepatitis B (20 and more) Unknown 05/02/2011 Administer ed Td (adult) Unknown 01/19/2007 Administered Influenza IM Intramuscular 09/21/2012 Administered Influenza Unknown 09/25/2013 Administered Influenza Unknown 09/12/2014 Administered Influenza Quad IM Intramuscular 09/15/2016 Administered Zoster Vaccine SC Subcutaneous 03/23/2017 Administered Influenza IM Intramuscular 10/12/2017 Administered TDaP IM Intramuscular 06/30/2017 Administered Influenza Quad IM Intramuscular 09/22/2020 Administered Influenza Quad IM Intramuscular 09/02/2021 Administered COVID-19 Pfizer BioNTech Unknown 03/01/2021 Administere d COVID-19 Pfizer BioNTech Unknown 04/24/2022 Administere d Influenza Quad Unknown 09/29/2018 Administered COVID-19 Pfizer BioNTech Unknown 02/04/2021 Administere d COVID-19 Pfizer BioNTech Unknown 09/23/2021 Administere d Shingrix Unknown 10/23/2020 Administered Influenza Quad Unknown 09/24/2019 Administered Influenza Quad IM Intramuscular 09/06/2022 Administered Influenza Quad Unknown 10/24/2023 Administered PCV 20 Unknown 09/04/2024 Administered SOCIAL HISTORY Tobacco Use: Social History Observation [...] Never (0 point) Points 3 Interpretation Negative PROBLEMS Problem Type ICD Code Onset Dates Problem Status W/U Status Risk SNOMED Code Notes Problem Hereditary hemochromatosis (E83.110) Active confirmed 23339041 Problem Gastroparesis (K31.84) Active confirmed 107097359 Problem Right foot pain (M79.671) Active confirmed Pain in right foot (111998050983 107) Problem Benign non-nodular prostatic hyperplasia without lower urinary tract symptoms (N40.0) Active confirmed 401460644 Problem Sleep disturbance (G47.9) Active confirmed 78386426 Problem 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) Active confirmed 00046730 VITAL SIGNS Height 68.25 in 03/15/2024 Encounters Encounter Location Date Provider Diagnosis Ralf Landon DO, [address] [id number] 11/28/2023 Ralf Landon DO, [address] [id number] 11/08/2023 Ralf Landon DO, [address] [id number] 02/14/2024 Ralf Landon Iron excess E83.19 Ralf Landon DO, [address] [id number] 04/03/2024 Ralf Landon Hereditary hemochromatosis E83.110 Ralf Landon DO, [address] [id number] 04/15/2024 Ralf Landon DO, [address] [id number] 09/27/2024 Ralf Landon DO, [address] [id number] 11/17/2023 Ralf Landon Benign non-nodular prostatic hyperplasia without lower urinary tract symptoms N40.0 ; Gastroparesis K31.84 and Iron excess E83.19 Ralf Landon DO, [address] [id number] 03/15/2024 Ralf Landon Hereditary hemochromatosis E83.110 and Gastroparesis K31.84 Ralf Landon DO [address] [id number] 09/20/2024 Ralf Landon Hereditary hemochromatosis E83.110 ; Gastroparesis K31.84 ; Benign non-nodular prostatic hyperplasia without lower urinary tract symptoms N40.0 and Right upper quadrant abdominal mass R19.01 ASSESSMENTS Encounter Date Diagnosis Assessment Notes Treatment Notes Treatment Clinical Notes 02/14/2024 Iron excess (ICD-10 - E83.19) 04/03/2024 Hereditary hemochromatosis (ICD-10 - E83.110) 11/17/2023 Gastroparesis (ICD-1 0 - K31.84) Follow up with GI 11/17/2023 Benign non-nodular prostatic hyperplasia without lower urinary tract symptoms (ICD-10 - N40.0) Urology has advised Yusef to stop the tamsulosin when he runs out of it. He is s/p aquablation of his prostate. He will follow up with Urology and undergo Uroflow 03/15/2024 Hereditary hemochromatosis (ICD-10 - E83.110) Avoid iron supplements. Avoid Vitamin C supplements. Avoid raw shellfish. Avoid alcohol. Refer to GI for liver elastography and therapeutic phlebotomies 03/15/2024 Gastroparesis (ICD-1 0 - K31.84) 09/20/2024 Hereditary hemochromatosis (ICD-10 - E83.110) Follow up with Hematology 09/20/2024 Gastroparesis (ICD-1 0 - K31.84) Follow up with GI. EGD next month. 11/17/2023 Iron excess (ICD-10 - E83.19) Stop alcohol. Repeat iron studies and ferritin in 3 months 09/20/2024 Benign non-nodular prostatic hyperplasia without lower urinary tract symptoms (ICD-10 - N40.0) 09/20/2024 Right upper quadrant abdominal mass (ICD-10 - R19.01) PLAN OF TREATMENT Pending Test Test Name Order Date CBC w DIFF 09/20/2024 LIPOPROTEIN FRACTIONATION (LIPID PANEL) 09/20/2024 PROFILE, FASTING 09/20/2024 TSH (THYROID STIMULATING HORMONE) 2023 PSA,Total (Free>4and<10) 09/20/2024 Next Appt Details Provider Name:Ralf Servin Marquisbrenda joseph, 02/04/2025 09:00:00 AM, [address] [place] [address], [phone], Insurance Providers Payer Name Payer Address Payer Phone Subscriber Number Group Number Insured Name Patient Relationship to Insured Coverage Start Date Coverage End Date MEDICARE [address] [place] [phone] [id number] Yusef Novak Self - patient is the insured MEDEX [address] [place] [address] [id number] Yusef Novak Self - patient is the insured MEDICAL (GENERAL) HISTORY Medical History History ICD Code benign prostatic hyperplasia (BPH) gastroesophageal reflux disease (GERD) lyme disease neuropathy allergies atypical chest pain Benign non-nodular prostatic hyperplasia without lower urinary tract symptoms N40.0 Gastroparesis K31.84 Iron excess E83.19 Hereditary hemochromatosis E83.110 Surgical History Surgery Date(Month/Year) tonsillectomy and adenoidectomy cystoscopy
--- OUTSIDE RECORDS SUMMARY | 2024-10-23 19:11 | XMS_ITS ---
Author Organization Ralf Landon DO [facility] Address [address] [place] [phone] Care Team Providers Care Call Specialist Name Role Phone Ralf Landon Primary Care Provider REASON FOR VISIT FYI Encounters Encounter Location Date Provider Diagnosis Ralf Landon DO, [address] [id number] 04/15/2024 Ralf Landon PLAN OF TREATMENT Next Appt Details Provider Name:Ralf ruiz, 02/04/2025 09:00:00 AM, [address] [place] [address], [phone],
== END 2024-10-22 09:01 | disposition home or self-care (01) ==
LOC: HO.BBR 09:00
PROVIDERS: PCP Internal Medicine; Visit Provider Internal Medicine Medical Oncology
DX: E83.110 Hereditary hemochromatosis (principal)
CPT/HCPCS: 36415; 82728; 83540; 85025

== ENCOUNTER 2024-11-26 08:56 | Outpatient (REF) | payer MEDICARE, SELFPAY ==
[2024-11-26 09:11] LABS: MANUAL DIFF FLAG NO
[2024-11-26 09:14] LABS: Basophils Percent Auto 0.7 % (0-2); Eosinophils Absolute Auto 0.1 X10*3/uL (0.0-0.4); Eosinophils Percent Auto 1.5 % (0-4); Hemoglobin 15.6 g/dl (14.0-18.0); Imm Gran Abs Auto 0.02 X10*3/uL (0.00-0.03); Imm Gran Pct Auto 0.4 % (0.0-0.4); Lymphocytes Absolute Auto 1.3 X10*3/uL (1.2-4.9); Lymphocytes Percent Auto 29.1 % (20-40); Mean Corpuscular HGB Conc 37.1 g/dl (31.0-36.0); Mean Corpuscular Hemoglobin 33.5 pg (27.0-33.0); Mean Corpuscular Volume 90.3 fL (80.0-98.0); Mean Platelet Volume 9.4 fL (9.4-12.4); Monocytes Absolute Auto 0.3 X10*3/uL (0.1-1.2); Monocytes Percent Auto 7.3 % (2-11); Neutrophils Absolute Auto 2.8 x10*3/uL (2.0-8.3); Platelet Count 181 X10*3/uL (160-400); Red Blood Count 4.65 X10*6/uL (4.60-5.80); Red Cell Distribution Width 11.5 % (11.0-16.0); White Blood Count 4.5 X10*3/uL (4.8-10.8)
--- OUTSIDE RECORDS SUMMARY | 2024-11-26 09:27 | XMS_ITS ---
Author Organization Ralf Landon DO, FACP Address [address] [place] [phone] Care Team Providers Care Quality Assurance Technician Name Role Phone Ralf Landon Primary Care Provider REASON FOR VISIT FYI Encounters Encounter Location Date Provider Diagnosis Ralf Landon DO [address] [id number] 04/15/2024 Ralf Landon PLAN OF TREATMENT No Information
--- OUTSIDE RECORDS SUMMARY | 2024-11-26 09:27 | XMS_ITS ---
Author Organization Ralf Landon DO, FACP Address [address] [place] [address] [phone] Care Team Providers Care Financial Accounting Manager Name Role Phone Ralf Landon Primary Care [...] AM EST > referral faxed; Berna [place] [facility] [place] will call patient to schedule appointment; [...] Encounters Encounter Location Date Provider Diagnosis Ralf Servin Barbi DO, [address] [id number] 09/20/2024 Ralf Landon Hereditary hemochromatosis E83.110 ; [...] Up: 4 Months, Reason: H&P,review lab work Progress Notes * Examination Category Sub-Category Detail Notes General Examination GENERAL APPEARANCE: in no ac [place] distress, well developed, well nourished LUNGS: breathing comfortabl y at rest MUSCULOSKELETAL: PSYCH: alert, oriented, cog nitive function intact History and Physical Notes * HPI (History of Present Illness) Category Sub-Category Detail Notes New symptom(s) Telehealth Location of provider:: Pro cardonar's home address Location of patient:: Address listed [...]
--- OUTSIDE RECORDS SUMMARY | 2024-11-26 09:27 | XMS_ITS ---
Author Organization Ralf Landon DO [facility] Address [address] [place] [address] [phone] Care Team Providers Care Campaign Management Specialist Name Role Phone Ralf Landon Primary Care Provider REASON FOR VISIT Needs referral Encounters Encounter Location Date Provider Diagnosis Ralf Landon DO [address] [id number] 09/27/2024 Ralf Landon PLAN OF TREATMENT No Information
--- OUTSIDE RECORDS SUMMARY | 2024-11-26 09:28 | XMS_ITS | Patient Health Record ---
Author Organization Ralf Landon DO, [facility] Address [address] [place] [address] [phone] Care Team Providers Care Management Instructor Name Role Phone Ralf Landon Primary Care Provider ALLERGIES Allergen (clinical drug ingredient) Drug/Non Drug Allergy documented on EMR Reaction Allergy Type Onset Date Status tamsulosin Flomax retrograde ejaculation Drug Allergy Active RESULTS Component Value Reference Range Notes Basic Metabolic Panel Reviewed date:02/08/2024 01:24:35 PM Interpretation:Normal Performing Lab:[facility], [address] [place] [phone] Notes/Report: Sodium 135 135-145 mmol/L Potassium 4.2 3.3-5.1 mmol/L Chloride 97 96-108 mmol/L Carbon Dioxide 29 22-29 mmol/L Anion Gap 13 12-20 Blood Urea Nitrogen 17 9-16 mg/dL Creatinine 1.03 0.5-1.4 mg/dL Estimated Glomerular Filt Rate > 60 NOTE: For -Ivorian individuals, multiply the result by 1.210. Chronic Kidney Disease: Estimated GFR < 60 mL/min/1.73m2 Severe Kidney Disease: Estimated GFR < 15 mL/min/1.73m2 Glucose Random 77 60-115 mg/dL Calcium 9.3 8.4-10.2 mg/dL IRON PROFILE Reviewed date:02/08/2024 01:25:09 PM Interpretation:Abnormal Performing Lab:[facility], [address] [place] [phone] Notes/Report: Iron 251 45-160 mcg/dL Total Iron Binding Capacity 276 228-428 mcg/d L Percent Iron Saturation 91 15-50 % Unsaturated Iron Binding < 25 Ferritin Reviewed date:02/08/2024 01:24:35 PM Interpretation:Abnormal Performing Lab:[facility], [address] [place] [phone] Notes/Report: Ferritin 357 20-250 ng/mL Complete Blood Count Auto Di ff Reviewed date:02/23/2024 12:32:10 PM Interpretation:Normal Performing Lab:[facility], [address] [place] [phone] Notes/Report: White Blood Count 5.4 4.8-10.8 X10*3/uL [...] Panel Reviewed date:02/23/2024 02:02:33 PM Interpretation:Normal Performing Lab:[facility], [address] [place] [phone] Notes/Report: Bilirubin Total 1.0 0.0-1.0 mg/dL Bilirubin Direct 0.4 0.0-0.5 mg/dL Aspartate Amino Transferase 22 5-37 U/L Alanine Aminotransferase 16 0-40 U/L Total Protein 6.5 6.5-8.0 g/dL Albumin Level 4.0 3.5-5.0 g/dL Alkaline Phosphatase 63 39-117 U/L Basic Metabolic Panel Reviewed date:02/23/2024 02:02:33 PM Interpretation:Abnormal Performing Lab:[facility], [address] [place] [phone] Notes/Report: Sodium 134 135-145 mmol/L Potassium 4.3 3.3-5.1 mmol/L Chloride 101 96-108 mmol/L Carbon Dioxide 27 22-29 mmol/L Anion Gap 10 12-20 Blood Urea Nitrogen 17 9-16 mg/dL Creatinine 0.97 0.5-1.4 mg/dL Estimated Glomerular Filt Rate > 60 NOTE: For -Ivorian individuals, multiply the result by 1.210. Chronic Kidney Disease: Estimated GFR < 60 mL/min/1.73m2 Severe Kidney Disease: Estimated GFR < 15 mL/min/1.73m2 Glucose Random 83 60-115 mg/dL Calcium 9.5 8.4-10.2 mg/dL IRON PROFILE Reviewed date:02/23/2024 02:02:33 PM Interpretation:Abnormal Performing Lab:[facility], [address] [place] [phone] Notes/Report: Iron 203 45-160 mcg/dL Total Iron Binding Capacity 239 228-428 mcg/d L Percent Iron Saturation 85 15-50 % Unsaturated Iron Binding 36 Ferritin Reviewed date:02/23/2024 02:02:57 PM Interpretation:Abnormal Performing Lab:[facility], [address] [place] [phone] Notes/Report: Ferritin 358 20-250 ng/mL Complete Blood Count Auto Di ff Reviewed date:2024 10:33:33 AM Interpretation:Abnormal Performing Lab:[facility], [address] [place] [phone] Notes/Report: White Blood Count 4.9 4.8-10.8 X10*3/uL [...] Panel Reviewed date:2024 11:49:01 AM Interpretation:Abnormal Performing Lab:[facility], [address] [place] [phone] Notes/Report: Sodium 136 135-145 mmol/L Potassium 4.5 [...] Glomerular Filt Rate > 60 NOTE: For -Ivorian individuals, multiply the result by 1.210. Chronic [...] PROFILE Reviewed date:2024 11:49:01 AM Interpretation:Abnormal Performing Lab:[facility], [address] [place] [phone] Notes/Report: Iron 254 45-160 mcg/dL Total Iron Binding Capacity 279 228-428 mcg/d L Percent Iron Saturation 91 15-50 % Unsaturated Iron Binding < 25 Ferritin Reviewed date:2024 11:49:01 AM Interpretation:Abnormal Performing Lab:[facility], [address] [place] [phone] Notes/Report: Ferritin 377 20-250 ng/mL Alpha Fetoprotein Reviewed date:04/29/2024 01:02:20 PM Interpretation:Normal Performing Lab:[facility], [address] [place] [phone] Notes/Report: Alpha Fetoprotein 5.2 <6.1 ng/mL This test was performed using the Christie Harrison chemiluminescent method. Values obtained from different assay methods cannot be used interchangeably. AFP levels, regardless of value, should not be interpreted as absolute evidence of the presence or absence of disease. THIS TEST WAS PERFORMED AT: [facility] [address] [place] [phone] MICHAEL ALONZO MD Harjinder Vaz Reviewed date:2024 10:32:55 AM Interpretation:Hold Performing Lab:[facility], [address] [place] [phone] Notes/Report: Harjinder Vaz See Note Specimen held untested for 24 hours; Call to request Chemistry testing. Complete Blood Count Auto Di ff Reviewed date:08/27/2024 12:41:55 PM Interpretation:Abnormal Performing Lab:[facility], [address] [place] [phone] Notes/Report: White Blood Count 5.3 4.8-10.8 X10*3/uL [...] Panel Reviewed date:08/27/2024 12:41:55 PM Interpretation:Normal Performing Lab:[facility], [address] [place] [phone] Notes/Report: Sodium 135 135-145 mmol/L Potassium 4.4 [...] Glomerular Filt Rate > 60 NOTE: For -Ivorian individuals, multiply the result by 1.210. Chronic [...] PROFILE Reviewed date:08/27/2024 12:41:55 PM Interpretation:Abnormal Performing Lab:[facility], [address] [place] [phone] Notes/Report: Iron 137 45-160 mcg/dL Total Iron Binding Capacity 267 228-428 mcg/d L Percent Iron Saturation 51 15-50 % Unsaturated Iron Binding 130 Ferritin Reviewed date:08/27/2024 12:41:55 PM Interpretation:Normal Performing Lab:[facility], [address] [place] [phone] Notes/Report: Ferritin 91 20-250 ng/mL Alpha Fetoprotein Reviewed date:08/29/2024 11:20:13 AM Interpretation:Normal Performing Lab:[facility], [address] [place] [phone] Notes/Report: Alpha Fetoprotein 5.8 <6.1 ng/mL This test was performed using the Christie Raymond chemiluminescent method. Values obtained from different assay methods cannot be used interchangeably. AFP levels, regardless of value, should not be interpreted as absolute evidence of the presence or absence of disease. THIS TEST WAS PERFORMED AT: [facility] [address] [place] [phone] MD Harjinder FERRO Reviewed date:08/27/2024 12:41:55 PM Interpretation:Hold Performing Lab:[facility], [address] [place] [phone] Notes/Report: Harjinder Vaz See Note Specimen held untested for 24 hours; Call to request Chemistry testing. REASON FOR REFERRAL Reason Gastroparesis Diagnosis 1 Gastroparesis (K31.8 4) Referral Organization Ralf Carpenter FACP Referring Provider First Name Ralf Referring Provider Uriel Name Barbi Referring Provider Speciality Internal M edicine Referred Provider Annabelle Cardoso rologmarta Referred Provider Specialty Gastroentero logy General Notes PageCheryl 4 11:45:14 AM EST > Referral faxed prior [...] Uriel Name Barbi Referring Provider Speciality Internal M edicine Referred Provider Vidya Donnelly Referred Provider Specialty Hematology/O ncology General Notes PageCheryl 4 04:28:31 PM EDT > Referral and notes faxed to [phone] Referral Priority Routine Reason Hereditary hemochrom atosis Diagnosis 1 Hereditary hemochrom atosis (E83.110) Referral Organization Ralf Carpenter FACP Referring Provider First Name Ralf Referring Provider Last Name Barbi Referring Provider [facility] Internal edicine Referred Provider Sherrie John Referred Provider Specialty Hematology/O ncology General Notes Cheryl Pennington 04:11:42 PM EDT > Referral faxed prior to scheduling, Cheryl Pennington 04/10/2024 09:30:18 AM EDT > Dr. Donnelly's office will contact patient and patient is aware. Referral Priority Routine Referral Appointment Date 2024 Reason RUQ mass Diagnosis 1 Right upper quadrant abdominal mass (R19.01) Referral Organization Ralf Carpenter FACP Referring Provider First Name Ralf Referring Provider Last Name Barbi Referring Provider Speciality Internal edicine Referred Provider Bam Chino Referred Provider Specialty General Surg mp General Notes Sulma Dorado 10:52:06 AM EST > referral faxed; Berna @ [facility] Surgeons will call patient to schedule appointment; [...] Referring Provider Last Name Barbi [facility] Referred Provider Sheldon Cadena Referred Provider Specialty Physical The rapist General Notes Sulma Dorado 12:46:23 PM EST > referral initiated at [...] Notes Problem Hereditary hemochromatosis (E83.110) Active confirmed 35909040 Problem Gastroparesis (K31.84) Active confirmed 917898378 Problem Right foot pain (M79.671) Active confirmed Pain in right foot ([id number] 107) Problem Benign non-nodular prostatic hyperplasia without lower urinary tract symptoms (N40.0) Active confirmed 098727517 Problem Sleep disturbance (G47.9) Active confirmed 92026958 Problem 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) Active confirmed 00895601 VITAL SIGNS Height 68.25 in 03/15/2024 Encounters Encounter Location Date Provider Diagnosis Ralf Landon DO [facility] [address] [place], [place] [id number] 11/28/2023 Ralf Landon DO, [address] [id number] 02/14/2024 Ralf Landon Iron excess E83.19 Ralf Landon DO, [address] [id number] 04/03/2024 Ralf Landon Hereditary hemochromatosis E83.110 Ralf Landon DO, [address] [id number] 04/15/2024 Ralf Landon DO, [address] [id number] 09/27/2024 Ralf Landon DO, [address] [id number] 03/15/2024 Ralf Landon Hereditary hemochromatosis E83.110 and Gastroparesis K31.84 Ralf Landon DO, [address] [id number] 09/20/2024 Ralf Landon Hereditary hemochromatosis E83.110 ; Gastroparesis K31.84 ; Benign non-nodular prostatic hyperplasia without lower urinary tract symptoms N40.0 and Right upper quadrant abdominal mass R19.01 ASSESSMENTS Encounter Date Diagnosis Assessment Notes Treatment Notes Treatment Clinical Notes 02/14/2024 Iron excess (ICD-10 - E83.19) 04/03/2024 Hereditary hemochromatosis (ICD-10 - E83.110) 03/15/2024 Hereditary hemochromatosis (ICD-10 - E83.110) Avoid [...] (THYROID STIMULATING HORMONE) 2023 PSA,Total (Free>4and<10) 09/20/2024 Insurance Providers Payer Name Payer Address Payer Phone Subscriber Number Group Number Insured Name Patient Relationship to Insured Coverage Start Date Coverage End Date MEDICARE [address] [place] [phone] [id number] Yusef Novak Self - patient is the insured MEDEX [address] [place] [address] [phone] [id number] Yusef Novak Self - patient is the [...]
[2024-11-26 10:46] LABS: Ferritin 42 ng/mL (20-250); Iron 184 mcg/dL (45-160); Percent Iron Saturation 67 % (15-50); Total Iron Binding Capacity 273 mcg/dL (228-428); Unsaturated Iron Binding 89 ug/dL
== END 2024-11-26 08:57 | disposition home or self-care (01) ==
LOC: HO.BBR 08:56
PROVIDERS: PCP Internal Medicine; Visit Provider Internal Medicine Medical Oncology
DX: E83.110 Hereditary hemochromatosis (principal)
CPT/HCPCS: 36415; 82728; 83540; 85025

== ENCOUNTER 2024-12-09 14:27 | Outpatient (AMB) | payer MEDICARE, SELFPAY ==
[2024-12-09 14:28] VITALS: BMI 22.3
--- NOTE | 2024-12-09 14:28 | MHC.OFFVIS ---
Vital Signs 12/09/24 14:28 Height 5 ft 9 in Weight 151 lb BMI 22.3 Intake Visit Reasons: Lipoma under rib cage Intake Note: This patient presents for abdominal wall mass RUQ. Pt c/o; no pain, reports mass x2, RUQ and right hand. Edge Plugger Required: No Accompanied by: Self / Same As Patient Allergies cephalexin Allergy (Unknown, Verified 12/09/24 14:36) fatigue,rash dust mites, pollen Allergy (Unknown, Uncoded 12/09/24 14:36) unknown Medication List - Last Reconciled 12/09/24 by Bam Chino MD prucalopride (Motegrity) 2 mg PO DAILY HPI HPI Lipoma under rib cage: Details: 69-year-old male referred for a lipoma. He has had this lump on his right upper quadrant for many years. However, he feels that this has been increasing in size. He describes more discomfort now and he therefore wants this removed. He denies any drainage or skin changes. [facility] Medical History (Updated 12/09/24 @ 14:52 by Bam Chino MD) Lipoma of abdominal wall Small intestinal bacterial overgrowth (SIBO) Enlarged prostate Surgical History History of cardiac cath Social History Household Members: Spouse Patient Tobacco Use Status: Never used Tobacco Substance Use Type: Other service: No Current occupational status: retired Current occupation: [employer] Const Denies chills and Denies fever(s) Card Denies chest pain, Denies dyspnea and Denies dyspnea on exertion Resp Denies cough, Denies dyspnea and Denies dyspnea on exertion GI Denies hematochezia and Denies change in bowel habits Denies hematuria and Denies difficulty urinating Musc Denies back pain and Denies limited range of motion Neuro Denies focal weakness and Denies convulsions Psych Denies depression and Denies mood swings Physical Exam Const General: comfortable and no acute distress Orientation/consciousness: patient oriented x3 Neck Neck: Yes no lymphadenopathy Resp Auscultation: clear to auscultation bilaterally Cardio Rhythm: regular rhythm GI Other: Lipomatous mass, right upper quadrant, well-defined, mobile, about 3 cm in diameter Palpation (GI): Soft to palpation, nontender and no guarding Neuro General: patient oriented x3 Assessment & Plan Assessment & Plan (1) Lipoma of abdominal wall: Code(s): D17.1 - Benign lipomatous neoplasm of skin and subcutaneous tissue of trunk Category: Medical Plan He has a lipomatous mass on the right upper quadrant as described above. I explained to him the technique of excision under local anesthesia. I reviewed the risks including but not limited to bleeding, infections, poor healing, as well as the benefits and alternatives. He wants to proceed. This will be done in the office on his next visit. Coding Level of Care Code New Pt Level 3 (11292) Diagnoses Lipoma of abdominal wall D17.1
--- OUTSIDE RECORDS SUMMARY | 2024-12-09 18:54 | XMS_ITS ---
Author Organization Ralf Landon DO, FACP Address [address] [place] [phone] Care Team Providers Care Manager Solar Name Role Phone Ralf Landon Primary Care [...] Date Provider Diagnosis Ralf Servin Barbi DO, [address] [id number] 09/20/2024 Ralf Landon Hereditary hemochromatosis E83.110 ; [...] General Examination GENERAL APPEARANCE: in no ac [place] distress, well developed, well nourished LUNGS: breathing [...]
--- OUTSIDE RECORDS SUMMARY | 2024-12-09 18:54 | XMS_ITS ---
Author Organization Ralf Landon DO, FACP Address [address] [place] [phone] Care Team Providers Care Lump Receiver Name Role Phone Ralf Landon Primary Care Provider REASON FOR VISIT FYI Encounters Encounter Location Date Provider Diagnosis Ralf Landon DO [address] [id number] 04/15/2024 Ralf Landon PLAN OF TREATMENT No Information
--- OUTSIDE RECORDS SUMMARY | 2024-12-09 18:54 | XMS_ITS | Continuity of Care Document ---
Author Organization [facility] Address [address] [place] [phone] Care Team Providers Care Laborer Plumbing Name Role Phone Ralf Landon DO Primary Care Physician [phone] [facility] [place]07[place] - 12/07/24 [facility] [address] [place] [address]- Encounter Type: Triage Allergies, Adverse Reactions, Alerts Substance Criticality Severity Reaction Reaction Severity Status Dust Grass pollen sp ecific immunoglobulin E Grass pollen specific immunoglobulin E Grass pollen specific immunoglobulin E Grass pollen specific immunoglobulin E [place] grass poisoning Active Immunizations Given and Recorded Vaccine Date Status Refusal Reason Hepatitis A Adult Vaccine 1 10/19/11 Given Hepatitis A Adult Vaccine 2 03/30/11 Given Hepatitis B Vaccine (old term) 3 10/19/11 Given Hepatitis B Vaccine (old term) 4 03/30/11 Given Hepatitis A Vaccine (oldterm) 5 05/02/11 Given Typhoid Vaccine, Inactivated 03/30/11 Given tetanus-diphtheria toxoids (Td) 01/11/07 Given 1Admin Note: hep A #2 2Admin Note: hep A #1 3Admin Note: HEP b #3 4Admin Note: hep b #1 5Admin Note: HEP B #2 Medications prucalopride 1 mg oral tablet 1 tablet = 1 mg, By Mouth, Daily, # 30 tablet, 4 Refills, Maintenance, 12/03/24 2:58:00 PM EST, [id number], Partial fill upon patient request if the prescription is for a schedule II opioid drug., 175.2, cm, 11/22/24 9:19:00 EST, Height, 68.9, kg, 10/28/24 11:45:00 EST, Dry Weight Start Date: 12/03/24 Status: Ordered Quantity: 30.0 Unit: tablet Repeat number: 5 prucalopride 2 mg oral tablet 1 tablet = 2 mg, By Mouth, Daily, # 60 tablet, 3 Refills, Maintenance, 09/25/24 7:04:00 PM EST, [facility] #[id number], Partial fill upon patient request if the prescription is for a schedule IIopioid drug., 175.2, cm, 05/24/24 16:29:00 EDT, Height Start Date: 09/25/24 Stop Date: 05/23/25 Status: Ordered Quantity: 60.0 Unit: tablet Repeat number: 4 Xdemvy 0.25% ophthalmic solution 1 drops, Every 12 hours, 0 Refills, Maintenance, 11/22/24 9:21:00 AM EST, Partial fill upon patient request if the prescription is for a schedule II opioid drug. Start Date: 11/22/24 Status: Ordered Repeat number: 1 Problem List Condition Confirmation Course Effective Dates Status Health St [facility] Informant Advice on foreign travel Confirmed Active Travel vaccinations Confirmed Active Social History Social History Type Response Smoking Status Never (less than 100 in lifetime) entered on: 05/24/24 Sex Sex Representation Male (finding) Patient Care team information Care Team Personnel Name: Ralf Landon DO Position: Reference Physician Member Role: PCP Address: [address] [place] [address] [place] [address]- Telecom: Care Team Related Persons Name: JAYCEE VILLASEÑOR Insurance Providers Guarantor name: ALFREDA VILLASEÑOR Health Plan Information #: 1 Payer: MEDICARE PART B OUTPT Member Number: NA Policy Number: NA Group Number: NA Health Plan Information #: 2 Payer: MEDEX Member Number: NA Policy Number: NA Group Number: NA
--- OUTSIDE RECORDS SUMMARY | 2024-12-09 18:54 | XMS_ITS ---
Author Organization Ralf Landon DO [facility] Address [address] [place] [phone] Care Team Providers Care Sheet Metal Former Name Role Phone Ralf Landon Primary Care Provider REASON FOR VISIT Needs referral Encounters Encounter Location Date Provider Diagnosis Ralf Landon DO [address] [id number] 09/27/2024 Ralf Landon PLAN OF TREATMENT No Information
--- OUTSIDE RECORDS SUMMARY | 2024-12-09 18:54 | XMS_ITS | Patient Health Record ---
Author Organization Ralf Landon DO, [facility] Address [address] [place] [phone] Care Team Providers Care Integration Architect Name Role Phone Ralf Landon Primary Care Provider ALLERGIES Allergen (clinical drug ingredient) Drug/Non Drug Allergy documented on EMR Reaction Allergy Type Onset Date Status tamsulosin Flomax retrograde ejaculation Drug Allergy Active RESULTS Component Value Reference Range Notes Basic Metabolic Panel Reviewed date:02/08/2024 01:24:35 PM Interpretation:Normal Performing Lab:[facility], [address] [place] [phone] Notes/Report: Sodium 135 135-145 mmol/L Potassium 4.2 3.3-5.1 mmol/L Chloride 97 96-108 mmol/L Carbon Dioxide 29 22-29 mmol/L Anion Gap 13 12-20 Blood Urea Nitrogen 17 9-16 mg/dL Creatinine 1.03 0.5-1.4 mg/dL Estimated Glomerular Filt Rate > 60 NOTE: For -[place]enezuel[place] individuals, multiply the result by 1.210. Chronic Kidney Disease: Estimated GFR < 60 mL/min/1.73m2 Severe Kidney Disease: Estimated GFR < 15 mL/min/1.73m2 Glucose Random 77 60-115 mg/dL Calcium 9.3 8.4-10.2 mg/dL IRON PROFILE Reviewed date:02/08/2024 01:25:09 PM Interpretation:Abnormal Performing Lab:[facility], [address] [place] [phone] Notes/Report: Iron 251 45-160 mcg/dL Total Iron Binding Capacity 276 228-428 mcg/d L Percent Iron Saturation 91 15-50 % Unsaturated Iron Binding < 25 Ferritin Reviewed date:02/08/2024 01:24:35 PM Interpretation:Abnormal Performing Lab:[facility], [address] [place] [phone] Notes/Report: Ferritin 357 20-250 ng/mL Complete Blood Count Auto Di ff Reviewed date:02/23/2024 12:32:10 PM Interpretation:Normal Performing Lab:[facility], [address] [place] [phone] Notes/Report: White Blood Count 5.4 4.8-10.8 X10*3/uL [...] Panel Reviewed date:02/23/2024 02:02:33 PM Interpretation:Normal Performing Lab:[facility], [address] [place] [phone] Notes/Report: Bilirubin Total 1.0 0.0-1.0 mg/dL Bilirubin Direct 0.4 0.0-0.5 mg/dL Aspartate Amino Transferase 22 5-37 U/L Alanine Aminotransferase 16 0-40 U/L Total Protein 6.5 6.5-8.0 g/dL Albumin Level 4.0 3.5-5.0 g/dL Alkaline Phosphatase 63 39-117 U/L Basic Metabolic Panel Reviewed date:02/23/2024 02:02:33 PM Interpretation:Abnormal Performing Lab:[facility], [address] [place] [phone] Notes/Report: Sodium 134 135-145 mmol/L Potassium 4.3 3.3-5.1 mmol/L Chloride 101 96-108 mmol/L Carbon Dioxide 27 22-29 mmol/L Anion Gap 10 12-20 Blood Urea Nitrogen 17 9-16 mg/dL Creatinine 0.97 0.5-1.4 mg/dL Estimated Glomerular Filt Rate > 60 NOTE: For -[place] individuals, multiply the result by 1.210. Chronic Kidney Disease: Estimated GFR < 60 mL/min/1.73m2 Severe Kidney Disease: Estimated GFR < 15 mL/min/1.73m2 Glucose Random 83 60-115 mg/dL Calcium 9.5 8.4-10.2 mg/dL IRON PROFILE Reviewed date:02/23/2024 02:02:33 PM Interpretation:Abnormal Performing Lab:[facility], [address] [place] [phone] Notes/Report: Iron 203 45-160 mcg/dL Total Iron Binding Capacity 239 228-428 mcg/d L Percent Iron Saturation 85 15-50 % Unsaturated Iron Binding 36 Ferritin Reviewed date:02/23/2024 02:02:57 PM Interpretation:Abnormal Performing Lab:[facility], [address] [place] [phone] Notes/Report: Ferritin 358 20-250 ng/mL Complete Blood Count Auto Di ff Reviewed date:2024 10:33:33 AM Interpretation:Abnormal Performing Lab:[facility], [address] [place] [phone] Notes/Report: White Blood Count 4.9 4.8-10.8 X10*3/uL [...] Panel Reviewed date:2024 11:49:01 AM Interpretation:Abnormal Performing Lab:[facility], [address] [place] [phone] Notes/Report: Sodium 136 135-145 mmol/L Potassium 4.5 [...] Glomerular Filt Rate > 60 NOTE: For -[place] individuals, multiply the result by 1.210. Chronic [...] PROFILE Reviewed date:2024 11:49:01 AM Interpretation:Abnormal Performing Lab:[facility], [address] [place] [phone] Notes/Report: Iron 254 45-160 mcg/dL Total Iron Binding Capacity 279 228-428 mcg/d L Percent Iron Saturation 91 15-50 % Unsaturated Iron Binding < 25 Ferritin Reviewed date:2024 11:49:01 AM Interpretation:Abnormal Performing Lab:[facility], [address] [place] [phone] Notes/Report: Ferritin 377 20-250 ng/mL Alpha Fetoprotein Reviewed date:04/29/2024 01:02:20 PM Interpretation:Normal Performing Lab:[facility], [address] [place] [phone] Notes/Report: Alpha Fetoprotein 5.2 <6.1 ng/mL This test was performed using the Christie [place] chemiluminescent method. Values obtained from different assay methods cannot be used interchangeably. AFP levels, regardless of value, should not be interpreted as absolute evidence of the presence or absence of disease. THIS TEST WAS PERFORMED AT: [email or web address] [address] [place] [phone] MICHAEL ALONZO MD Harjinder Vaz Reviewed date:2024 10:32:55 AM Interpretation:Hold Performing Lab:[facility], [address] [place] [phone] Notes/Report: Harjinder Vaz See Note Specimen held untested for 24 hours; Call to request Chemistry testing. Complete Blood Count Auto Di ff Reviewed date:08/27/2024 12:41:55 PM Interpretation:Abnormal Performing Lab:[facility], [address] [place] [phone] Notes/Report: White Blood Count 5.3 4.8-10.8 X10*3/uL [...] Panel Reviewed date:08/27/2024 12:41:55 PM Interpretation:Normal Performing Lab:[facility], [address] [place] [phone] Notes/Report: Sodium 135 135-145 mmol/L Potassium 4.4 [...] Glomerular Filt Rate > 60 NOTE: For -[place] individuals, multiply the result by 1.210. Chronic [...] PROFILE Reviewed date:08/27/2024 12:41:55 PM Interpretation:Abnormal Performing Lab:[facility], [address] [place] [phone] Notes/Report: Iron 137 45-160 mcg/dL Total Iron Binding Capacity 267 228-428 mcg/d L Percent Iron Saturation 51 15-50 % Unsaturated Iron Binding 130 Ferritin Reviewed date:08/27/2024 12:41:55 PM Interpretation:Normal Performing Lab:[facility], [address] [place] [phone] Notes/Report: Ferritin 91 20-250 ng/mL Alpha Fetoprotein Reviewed date:08/29/2024 11:20:13 AM Interpretation:Normal Performing Lab:[facility], [address] [place] [phone] Notes/Report: Alpha Fetoprotein 5.8 <6.1 ng/mL This test was performed using the Christie [place] chemiluminescent method. Values obtained from different assay methods cannot be used interchangeably. AFP levels, regardless of value, should not be interpreted as absolute evidence of the presence or absence of disease. THIS TEST WAS PERFORMED AT: [email or web address] [address] [place] [phone] MD Harjinder FERRO Reviewed date:08/27/2024 12:41:55 PM Interpretation:Hold Performing Lab:[facility], [address] [place] [phone] Notes/Report: Harjinder Vaz See Note Specimen held [...] EDT > Referral and notes faxed to [phone] Referral Priority Routine Reason Hereditary hemochrom atosis Diagnosis 1 Hereditary hemochrom atosis (E83.110) Referral Organization Ralf Carpenter FACP Referring Provider First Name Ralf Referring Provider Last Name Barbi Referring Provider [facility] Internal edicine Referred Provider Sherrie John [...] AM EST > referral faxed; [place] [facility] [place] call patient to schedule appointment; [...] Referring Provider Last Name Barbi [facility] Referred Provider Sheldon Cadena [...] Notes Problem Hereditary hemochromatosis (E83.110) Active confirmed 19539467 Problem Gastroparesis (K31.84) Active confirmed 451186393 Problem Right foot pain (M79.671) Active confirmed Pain in right foot (798743440946 107) Problem Benign non-nodular prostatic hyperplasia without lower urinary tract symptoms (N40.0) Active confirmed 910302781 Problem Sleep disturbance (G47.9) Active confirmed 86746555 Problem 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) Active confirmed 61838705 VITAL SIGNS Height 68.25 in 03/15/2024 Encounters Encounter Location Date Provider Diagnosis Ralf Landon DO [address] [id number] 02/14/2024 Ralf Landon Iron excess E83.19 Ralf Landon DO, [address] [id number] 04/03/2024 Ralf Landon Hereditary hemochromatosis E83.110 Ralf Landon DO, [address] [id number] 04/15/2024 Ralf Landon DO, [address] [id number] 09/27/2024 Ralf Landon DO, [address] [id number] 03/15/2024 Ralf Landon Hereditary hemochromatosis E83.110 and Gastroparesis K31.84 Ralf Landon DO, [address] [id number] 09/20/2024 Ralf Landon Hereditary hemochromatosis E83.110 ; [...] Date MEDICARE [address] [place] [address] [id number] Yusef Novak Self - patient is the insured [employer] [address] [place] [address] [phone] [id number] Yusef Novak Self - patient is the [...]
== END 2024-12-09 14:55 | disposition home or self-care (01) ==
PROVIDERS: PCP Internal Medicine; Visit Provider Surgery
DX: D17.1 Benign lipomatous neoplasm of skin and subcutaneous tissue of trunk (principal)
CPT/HCPCS: 99203

== ENCOUNTER → 2024-12-09 14:27 | Outpatient (BNVA) | payer MEDICARE, SELFPAY | PROVIDERS: PCP Internal Medicine; Visit Provider Surgery | DX: D17.1 Benign lipomatous neoplasm of skin and subcutaneous tissue of trunk (principal) | CPT/HCPCS: 99202 ==

== ENCOUNTER 2024-12-16 08:21 | Outpatient (REF) | payer MEDICARE, SELFPAY | END 2024-12-16 08:22 | disposition home or self-care (01) | LOC: HO.LNP 08:21 | PROVIDERS: PCP Internal Medicine; Visit Provider Surgery | DX: D17.1 Benign lipomatous neoplasm of skin and subcutaneous tissue of trunk (principal) | CPT/HCPCS: 21931; 88304 ==

== ENCOUNTER 2025-01-01 08:42 | Outpatient (AMB) | payer MEDICARE, SELFPAY ==
--- NOTE | 2025-01-01 08:48 | MHC.OFFVIS ---
Vital Signs 01/01/25 08:49 Height 5 ft 9 in Weight 150 lb 15.984 oz BMI 22.3 Intake Visit Reasons: stitches removal Intake Note: This patient presents for suture removal status post excision lipoma abdominal wall. Pt c/o; ? new lump, skin is raised surgical site, no redness but he does have some bruising. Senior Scrum Master Required: No Accompanied by: Self / Same As Patient Allergies cephalexin Allergy (Unknown, Verified 01/01/25 08:48) fatigue,rash dust mites, pollen Allergy (Unknown, Uncoded 01/01/25 08:48) unknown HPI HPI stitches removal: Details: He underwent excision of an abdominal wall lipoma under local anesthesia last 12/16/2024 in the office. He tolerated procedure well. He is here for suture removal. He denies complaints. [facility] Medical History Lipoma of abdominal wall Small intestinal bacterial overgrowth (SIBO) Enlarged prostate Surgical History S/P excision of lipoma (~12/16/24) History of cardiac cath Social History Household Members: Spouse Patient Tobacco Use Status: Never used Tobacco Substance Use Type: Other service: No Current occupational status: retired Current occupation: [employer] Const Denies chills and Denies fever(s) Physical Exam Vital Signs: BMI result Body Mass Index 22.3 Const General: comfortable and no acute distress GI Other: Excision site on the abdominal wall on the right is well healed, not infected, sutures intact Assessment & Plan Assessment & Plan (1) Lipoma of abdominal wall: Code(s): D17.1 - Benign lipomatous neoplasm of skin and subcutaneous tissue of trunk Category: Medical Plan: Status post excision. I removed his sutures. The wound edges remained well apposed. His incision is well healed. He has some ecchymosis and I told him that this will resolved. His path report shows a lipoma. He can follow up on a p.r.n. basis Coding Level of Care Code Global (95018) Diagnoses Lipoma of abdominal wall D17.1
--- OUTSIDE RECORDS SUMMARY | 2025-01-01 08:48 | XMS_ITS ---
Author Organization Ralf Landon DO, FACP Address [address] [place] [phone] Care Team Providers Care Metalizing Machine Operator Name Role Phone Ralf Landon Primary Care Provider REASON FOR VISIT FYI Encounters Encounter Location Date Provider Diagnosis Ralf Landon DO [address] [id number] 04/15/2024 Ralf Landon PLAN OF TREATMENT No Information
--- OUTSIDE RECORDS SUMMARY | 2025-01-01 08:48 | XMS_ITS | Patient Health Record ---
Author Organization Ralf Landon DO, [facility] Address [address] [place] [phone] Care Team Providers Care Labor Expediter Name Role Phone Ralf Landon Primary Care Provider ALLERGIES Allergen (clinical drug ingredient) Drug/Non Drug Allergy documented on EMR Reaction Allergy Type Onset Date Status tamsulosin Flomax retrograde ejaculation Drug Allergy Active RESULTS Component Value Reference Range Notes Basic Metabolic Panel Reviewed date:02/08/2024 01:24:35 PM Interpretation:Normal Performing Lab:[facility], [address] [place] [phone] Notes/Report: Sodium 135 135-145 mmol/L Potassium 4.2 3.3-5.1 mmol/L Chloride 97 96-108 mmol/L Carbon Dioxide 29 22-29 mmol/L Anion Gap 13 12-20 Blood Urea Nitrogen 17 9-16 mg/dL Creatinine 1.03 0.5-1.4 mg/dL Estimated Glomerular Filt Rate > 60 NOTE: For -Cym[place] individuals, multiply the result by 1.210. Chronic Kidney Disease: Estimated GFR < 60 mL/min/1.73m2 Severe Kidney Disease: Estimated GFR < 15 mL/min/1.73m2 Glucose Random 77 60-115 mg/dL Calcium 9.3 8.4-10.2 mg/dL IRON PROFILE Reviewed date:02/08/2024 01:25:09 PM Interpretation:Abnormal Performing Lab:[facility], [address] [place] [phone] Notes/Report: Iron 251 45-160 mcg/dL Total Iron Binding Capacity 276 228-428 mcg/d L Percent Iron Saturation 91 15-50 % Unsaturated Iron Binding < 25 Ferritin Reviewed date:02/08/2024 01:24:35 PM Interpretation:Abnormal Performing Lab:[facility], [address] [place] [phone] Notes/Report: Ferritin 357 20-250 ng/mL Complete Blood Count Auto Di ff Reviewed date:02/23/2024 12:32:10 PM Interpretation:Normal Performing Lab:[facility], [address] [place] [phone] Notes/Report: White Blood Count 5.4 4.8-10.8 X10*3/uL [...] Panel Reviewed date:02/23/2024 02:02:33 PM Interpretation:Normal Performing Lab:[facility], [address] [place] [phone] Notes/Report: Bilirubin Total 1.0 0.0-1.0 mg/dL Bilirubin Direct 0.4 0.0-0.5 mg/dL Aspartate Amino Transferase 22 5-37 U/L Alanine Aminotransferase 16 0-40 U/L Total Protein 6.5 6.5-8.0 g/dL Albumin Level 4.0 3.5-5.0 g/dL Alkaline Phosphatase 63 39-117 U/L Basic Metabolic Panel Reviewed date:02/23/2024 02:02:33 PM Interpretation:Abnormal Performing Lab:[facility], [address] [place] [phone] Notes/Report: Sodium 134 135-145 mmol/L Potassium 4.3 3.3-5.1 mmol/L Chloride 101 96-108 mmol/L Carbon Dioxide 27 22-29 mmol/L Anion Gap 10 12-20 Blood Urea Nitrogen 17 9-16 mg/dL Creatinine 0.97 0.5-1.4 mg/dL Estimated Glomerular Filt Rate > 60 NOTE: For -[place]ym[place] individuals, multiply the result by 1.210. Chronic Kidney Disease: Estimated GFR < 60 mL/min/1.73m2 Severe Kidney Disease: Estimated GFR < 15 mL/min/1.73m2 Glucose Random 83 60-115 mg/dL Calcium 9.5 8.4-10.2 mg/dL IRON PROFILE Reviewed date:02/23/2024 02:02:33 PM Interpretation:Abnormal Performing Lab:[facility], [address] [place] [phone] Notes/Report: Iron 203 45-160 mcg/dL Total Iron Binding Capacity 239 228-428 mcg/d L Percent Iron Saturation 85 15-50 % Unsaturated Iron Binding 36 Ferritin Reviewed date:02/23/2024 02:02:57 PM Interpretation:Abnormal Performing Lab:[facility], [address] [place] [phone] Notes/Report: Ferritin 358 20-250 ng/mL Complete Blood Count Auto Di ff Reviewed date:2024 10:33:33 AM Interpretation:Abnormal Performing Lab:[facility], [address] [place] [phone] Notes/Report: White Blood Count 4.9 4.8-10.8 X10*3/uL [...] Panel Reviewed date:2024 11:49:01 AM Interpretation:Abnormal Performing Lab:[facility], [address] [place] [phone] Notes/Report: Sodium 136 135-145 mmol/L Potassium 4.5 [...] Glomerular Filt Rate > 60 NOTE: For -Cymro individuals, multiply the result by 1.210. Chronic [...] PROFILE Reviewed date:2024 11:49:01 AM Interpretation:Abnormal Performing Lab:[facility], [address] [place] [phone] Notes/Report: Iron 254 45-160 mcg/dL Total Iron Binding Capacity 279 228-428 mcg/d L Percent Iron Saturation 91 15-50 % Unsaturated Iron Binding < 25 Ferritin Reviewed date:2024 11:49:01 AM Interpretation:Abnormal Performing Lab:[facility], [address] [place] [phone] Notes/Report: Ferritin 377 20-250 ng/mL Alpha Fetoprotein Reviewed date:04/29/2024 01:02:20 PM Interpretation:Normal Performing Lab:[facility], [address] [place] [phone] Notes/Report: Alpha Fetoprotein 5.2 <6.1 ng/mL This test was performed using the Christie [place] chemiluminescent method. Values obtained from different assay methods cannot be used interchangeably. AFP levels, regardless of value, should not be interpreted as absolute evidence of the presence or absence of disease. THIS TEST WAS PERFORMED AT: [email or web address] [address] [place] [phone] MICHAEL ALONZO MD Harjinder Vza Reviewed date:2024 10:32:55 AM Interpretation:Hold Performing Lab:[facility], [address] [place] [phone] Notes/Report: Harjinder Vaz See Note Specimen held untested for 24 hours; Call to request Chemistry testing. Complete Blood Count Auto Di ff Reviewed date:08/27/2024 12:41:55 PM Interpretation:Abnormal Performing Lab:[facility], [address] [place] [phone] Notes/Report: White Blood Count 5.3 4.8-10.8 X10*3/uL [...] Panel Reviewed date:08/27/2024 12:41:55 PM Interpretation:Normal Performing Lab:[facility], [address] [place] [phone] Notes/Report: Sodium 135 135-145 mmol/L Potassium 4.4 [...] Glomerular Filt Rate > 60 NOTE: For -Cymro individuals, multiply the result by 1.210. Chronic [...] PROFILE Reviewed date:08/27/2024 12:41:55 PM Interpretation:Abnormal Performing Lab:[facility], [address] [place] [phone] Notes/Report: Iron 137 45-160 mcg/dL Total Iron Binding Capacity 267 228-428 mcg/d L Percent Iron Saturation 51 15-50 % Unsaturated Iron Binding 130 Ferritin Reviewed date:08/27/2024 12:41:55 PM Interpretation:Normal Performing Lab:[facility], [address] [place] [phone] Notes/Report: Ferritin 91 20-250 ng/mL Alpha Fetoprotein Reviewed date:08/29/2024 11:20:13 AM Interpretation:Normal Performing Lab:[facility], [address] [place] [phone] Notes/Report: Alpha Fetoprotein 5.8 <6.1 ng/mL This test was performed using the Christie [place] chemiluminescent method. Values obtained from different assay methods cannot be used interchangeably. AFP levels, regardless of value, should not be interpreted as absolute evidence of the presence or absence of disease. THIS TEST WAS PERFORMED AT: [email or web address] [address] [place] [phone] MD Harjinder FERRO Reviewed date:08/27/2024 12:41:55 PM Interpretation:Hold Performing Lab:[facility], [address] [place] [phone] Notes/Report: Harjinder Vaz See Note Specimen held [...] EDT > Referral and notes faxed to [phone] Referral Priority Routine Reason Hereditary hemochrom atosis Diagnosis 1 Hereditary hemochrom atosis (E83.110) Referral Organization Ralf Carpenter FACP Referring Provider First Name Ralf Referring Provider Last Name Barbi Referring Provider [facility] Internal edicine Referred Provider Sherrie [...] Ralf Carpenter FACP Referring Provider First Name Rafl Referring Provider Last Name Barbi Referring Provider Speciality Internal edicine Referred Provider Bam Chino Referred Provider Specialty General Surg mp General Notes Sulma Dorado 10:52:06 AM EST > referral faxed; Berna @ [facility] [place] Surgeons will call patient to schedule appointment; [...] Referring Provider Last Name Barbi [facility] Referred Provider Sheldon Cadena [...] Notes Problem Hereditary hemochromatosis (E83.110) Active confirmed 94475787 Problem Gastroparesis (K31.84) Active confirmed 417139991 Problem Right foot pain (M79.671) Active confirmed Pain in right foot ([id number] 107) Problem Benign non-nodular prostatic hyperplasia without lower urinary tract symptoms (N40.0) Active confirmed 446722679 Problem Sleep disturbance (G47.9) Active confirmed 30125397 Problem 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) Active confirmed 51519369 VITAL SIGNS Height 68.25 in 03/15/2024 Encounters Encounter Location Date Provider Diagnosis Ralf Landon DO [address] [id number] 02/14/2024 Ralf Landon Iron excess E83.19 Ralf Landon DO, [address] [id number] 04/03/2024 Ralf Landon Hereditary hemochromatosis E83.110 Ralf Landon DO, [address] [id number] 04/15/2024 Ralf Landon DO, [address] [id number] 09/27/2024 Ralf Landon DO, [address] [id number] 03/15/2024 Ralf Landon Hereditary hemochromatosis E83.110 and Gastroparesis K31.84 Ralf Landon DO, [address] [id number] 09/20/2024 Ralf Landon Hereditary hemochromatosis E83.110 ; [...] Date MEDICARE [address] [place] [phone] [id number] Yusef Novak Self - patient is the insured [employer] [address] [place] [address] [phone] [id number] Yusef Novak Self - patient is the [...]
--- OUTSIDE RECORDS SUMMARY | 2025-01-01 08:48 | XMS_ITS ---
Author Organization [facility] Address [address] [place] [phone] Care Team Providers Care Wood Cutter Name Role Phone Ralf Landon Primary Care Provider REASON FOR VISIT Needs referral Encounters Encounter Location Date Provider Diagnosis Ralf Landon DO [address] [id number] 09/27/2024 Ralf Landon PLAN OF TREATMENT No Information
[2025-01-01 08:49] VITALS: BMI 22.3
--- OUTSIDE RECORDS SUMMARY | 2025-01-01 08:49 | XMS_ITS ---
Author Organization Ralf Landon DO, FACP Address [address] [place] [phone] Care Team Providers Care Rubber Mill Operator Name Role Phone Ralf Landon Primary [...] > referral faxed; [place] [facility] [place] will call patient to schedule appointment; [...] Date Provider Diagnosis Ralf Servin Barbi DO, [address] [id number] 09/20/2024 Ralf Landon Hereditary hemochromatosis E83.110 ; [...] General Examination GENERAL APPEARANCE: in no ac [place] distress, well developed, well nourished LUNGS: breathing [...]
== END 2025-01-01 08:58 | disposition home or self-care (01) ==
PROVIDERS: PCP Internal Medicine; Visit Provider Surgery
DX: D17.1 Benign lipomatous neoplasm of skin and subcutaneous tissue of trunk (principal)
CPT/HCPCS: 99024

== ENCOUNTER → 2025-01-01 08:42 | Outpatient (BNVA) | payer MEDICARE, SELFPAY | PROVIDERS: PCP Internal Medicine; Visit Provider Surgery | DX: Z48.02 Encounter for removal of sutures (principal); Z87.2 Personal history of diseases of the skin and subcutaneous tissue; Z98.890 Other specified postprocedural states | CPT/HCPCS: 99212 ==

== ENCOUNTER 2025-01-02 08:25 | Outpatient (REF) | payer MEDICARE, SELFPAY ==
[2025-01-02 08:39] LABS: MANUAL DIFF FLAG NO
[2025-01-02 08:41] LABS: Basophils Percent Auto 0.6 % (0-2); Eosinophils Absolute Auto 0.1 X10*3/uL (0.0-0.4); Eosinophils Percent Auto 1.2 % (0-4); Hematocrit 40.8 % (42.0-52.0); Hemoglobin 14.8 g/dl (14.0-18.0); Imm Gran Abs Auto 0.02 X10*3/uL (0.00-0.03); Imm Gran Pct Auto 0.4 % (0.0-0.4); Lymphocytes Absolute Auto 1.2 X10*3/uL (1.2-4.9); Lymphocytes Percent Auto 22.5 % (20-40); Mean Corpuscular HGB Conc 36.3 g/dl (31.0-36.0); Mean Corpuscular Hemoglobin 33.1 pg (27.0-33.0); Mean Corpuscular Volume 91.3 fL (80.0-98.0); Mean Platelet Volume 9.4 fL (9.4-12.4); Monocytes Absolute Auto 0.3 X10*3/uL (0.1-1.2); Monocytes Percent Auto 5.4 % (2-11); Neutrophils Absolute Auto 3.6 x10*3/uL (2.0-8.3); Neutrophils Percent Auto 69.9 % (45-73); Platelet Count 187 X10*3/uL (160-400); Red Blood Count 4.47 X10*6/uL (4.60-5.80); Red Cell Distribution Width 11.4 % (11.0-16.0); White Blood Count 5.2 X10*3/uL (4.8-10.8)
--- OUTSIDE RECORDS SUMMARY | 2025-01-02 08:51 | XMS_ITS ---
Author Organization Ralf Landon DO, FACP Address [address] [place] [phone] Care Team Providers Care Filer And Sander Name Role Phone Ralf Landon Primary Care Provider REASON FOR VISIT FYI Encounters Encounter Location Date Provider Diagnosis Ralf Landon DO [address] [id number] 04/15/2024 Ralf Landon PLAN OF TREATMENT No Information
--- OUTSIDE RECORDS SUMMARY | 2025-01-02 08:51 | XMS_ITS | Patient Health Record ---
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 Name Role Phone Ralf Landon Primary Care Provider [phone] ALLERGIES Allergen (clinical drug ingredient) Drug/Non Drug Allergy documented on EMR Reaction Allergy Type Onset Date Status tamsulosin Flomax retrograde ejaculation Drug Allergy Active RESULTS Component Value Reference Range Notes Basic Metabolic Panel Reviewed date:02/08/2024 01:24:35 PM Interpretation:Normal Performing Lab:[facility], [address] [place] [phone] Notes/Report: Sodium 135 135-145 mmol/L Potassium 4.2 3.3-5.1 mmol/L Chloride 97 96-108 mmol/L Carbon Dioxide 29 22-29 mmol/L Anion Gap 13 12-20 Blood Urea Nitrogen 17 9-16 mg/dL Creatinine 1.03 0.5-1.4 mg/dL Estimated Glomerular Filt Rate > 60 NOTE: For -Taiwanese individuals, multiply the result by 1.210. Chronic Kidney Disease: Estimated GFR < 60 mL/min/1.73m2 Severe Kidney Disease: Estimated GFR < 15 mL/min/1.73m2 Glucose Random 77 60-115 mg/dL Calcium 9.3 8.4-10.2 mg/dL IRON PROFILE Reviewed date:02/08/2024 01:25:09 PM Interpretation:Abnormal Performing Lab:[facility], [address] [place] [phone] Notes/Report: Iron 251 45-160 mcg/dL Total Iron Binding Capacity 276 228-428 mcg/d L Percent Iron Saturation 91 15-50 % Unsaturated Iron Binding < 25 Ferritin Reviewed date:02/08/2024 01:24:35 PM Interpretation:Abnormal Performing Lab:[facility], [address] [place] [phone] Notes/Report: Ferritin 357 20-250 ng/mL Complete Blood Count Auto Di ff Reviewed date:02/23/2024 12:32:10 PM Interpretation:Normal Performing Lab:[facility], [address] [place] [phone] Notes/Report: White Blood Count 5.4 4.8-10.8 X10*3/uL [...] Panel Reviewed date:02/23/2024 02:02:33 PM Interpretation:Normal Performing Lab:[facility], [address] [place] [phone] Notes/Report: Bilirubin Total 1.0 0.0-1.0 mg/dL Bilirubin Direct 0.4 0.0-0.5 mg/dL Aspartate Amino Transferase 22 5-37 U/L Alanine Aminotransferase 16 0-40 U/L Total Protein 6.5 6.5-8.0 g/dL Albumin Level 4.0 3.5-5.0 g/dL Alkaline Phosphatase 63 39-117 U/L Basic Metabolic Panel Reviewed date:02/23/2024 02:02:33 PM Interpretation:Abnormal Performing Lab:[facility], [address] [place] [phone] Notes/Report: Sodium 134 135-145 mmol/L Potassium 4.3 3.3-5.1 mmol/L Chloride 101 96-108 mmol/L Carbon Dioxide 27 22-29 mmol/L Anion Gap 10 12-20 Blood Urea Nitrogen 17 9-16 mg/dL Creatinine 0.97 0.5-1.4 mg/dL Estimated Glomerular Filt Rate > 60 NOTE: For -Taiwanese individuals, multiply the result by 1.210. Chronic Kidney Disease: Estimated GFR < 60 mL/min/1.73m2 Severe Kidney Disease: Estimated GFR < 15 mL/min/1.73m2 Glucose Random 83 60-115 mg/dL Calcium 9.5 8.4-10.2 mg/dL IRON PROFILE Reviewed date:02/23/2024 02:02:33 PM Interpretation:Abnormal Performing Lab:[facility], [address] [place] [phone] Notes/Report: Iron 203 45-160 mcg/dL Total Iron Binding Capacity 239 228-428 mcg/d L Percent Iron Saturation 85 15-50 % Unsaturated Iron Binding 36 Ferritin Reviewed date:02/23/2024 02:02:57 PM Interpretation:Abnormal Performing Lab:[facility], [address] [place] [phone] Notes/Report: Ferritin 358 20-250 ng/mL Complete Blood Count Auto Di ff Reviewed date:2024 10:33:33 AM Interpretation:Abnormal Performing Lab:[facility], [address] [place] [phone] Notes/Report: White Blood Count 4.9 4.8-10.8 X10*3/uL [...] Panel Reviewed date:2024 11:49:01 AM Interpretation:Abnormal Performing Lab:[facility], [address] [place] [phone] Notes/Report: Sodium 136 135-145 mmol/L Potassium 4.5 [...] Glomerular Filt Rate > 60 NOTE: For -Taiwanese individuals, multiply the result by 1.210. Chronic [...] PROFILE Reviewed date:2024 11:49:01 AM Interpretation:Abnormal Performing Lab:[facility], [address] [place] [phone] Notes/Report: Iron 254 45-160 mcg/dL Total Iron Binding Capacity 279 228-428 mcg/d L Percent Iron Saturation 91 15-50 % Unsaturated Iron Binding < 25 Ferritin Reviewed date:2024 11:49:01 AM Interpretation:Abnormal Performing Lab:[facility], [address] [place] [phone] Notes/Report: Ferritin 377 20-250 ng/mL Alpha Fetoprotein Reviewed date:04/29/2024 01:02:20 PM Interpretation:Normal Performing Lab:[facility], [address] [place] [phone] Notes/Report: Alpha Fetoprotein 5.2 <6.1 ng/mL This test was performed using the Christie [place] chemiluminescent method. Values obtained from different assay methods cannot be used interchangeably. AFP levels, regardless of value, should not be interpreted as absolute evidence of the presence or absence of disease. THIS TEST WAS PERFORMED AT: [facility] [address] [place] [phone] MICHAEL ALONZO MD Harjinder Vaz Reviewed date:2024 10:32:55 AM Interpretation:Hold Performing Lab:[facility], [address] [place] [phone] Notes/Report: Harjinder Vaz See Note Specimen held untested for 24 hours; Call to request Chemistry testing. Complete Blood Count Auto Di ff Reviewed date:08/27/2024 12:41:55 PM Interpretation:Abnormal Performing Lab:[facility], [address] [place] [phone] Notes/Report: White Blood Count 5.3 4.8-10.8 X10*3/uL [...] Panel Reviewed date:08/27/2024 12:41:55 PM Interpretation:Normal Performing Lab:[facility], [address] [place] [phone] Notes/Report: Sodium 135 135-145 mmol/L Potassium 4.4 [...] Glomerular Filt Rate > 60 NOTE: For -Taiwanese individuals, multiply the result by 1.210. Chronic [...] PROFILE Reviewed date:08/27/2024 12:41:55 PM Interpretation:Abnormal Performing Lab:[facility], [address] [place] [phone] Notes/Report: Iron 137 45-160 mcg/dL Total Iron Binding Capacity 267 228-428 mcg/d L Percent Iron Saturation 51 15-50 % Unsaturated Iron Binding 130 Ferritin Reviewed date:08/27/2024 12:41:55 PM Interpretation:Normal Performing Lab:[facility], [address] [place] [phone] Notes/Report: Ferritin 91 20-250 ng/mL Alpha Fetoprotein Reviewed date:08/29/2024 11:20:13 AM Interpretation:Normal Performing Lab:[facility], [address] [place] [phone] Notes/Report: Alpha Fetoprotein 5.8 <6.1 ng/mL This test was performed using the [place] chemiluminescent method. Values obtained from different assay methods cannot be used interchangeably. AFP levels, regardless of value, should not be interpreted as absolute evidence of the presence or absence of disease. THIS TEST WAS PERFORMED AT: [facility] [address] [place] [phone] MD Harjinder FERRO Reviewed date:08/27/2024 12:41:55 PM Interpretation:Hold Performing Lab:[facility], [address] [place] [phone] Notes/Report: Harjinder Vaz See Note Specimen held [...] EDT > Referral and notes faxed to [phone] Referral Priority Routine Reason Hereditary hemochrom atosis Diagnosis 1 Hereditary hemochrom atosis (E83.110) Referral Organization Ralf Carpenter FACP Referring Provider First Name Ralf Referring Provider Last Name Barbi Referring Provider [facility] Internal edicine Referred Provider Sherrie [...] AM EST > referral faxed; Berna @ [facility] Surgeons will call patient to schedule appointment; [...] Referring Provider Last Name Barbi [facility] Referred Provider Sheldon [...] Notes Problem Hereditary hemochromatosis (E83.110) Active confirmed 69376291 Problem Gastroparesis (K31.84) Active confirmed 697530692 Problem Right foot pain (M79.671) Active confirmed Pain in right foot ([id number]) Problem Benign non-nodular prostatic hyperplasia without lower urinary tract symptoms (N40.0) Active confirmed 570709559 Problem Sleep disturbance (G47.9) Active confirmed 10316323 Problem 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) Active confirmed 86376705 VITAL SIGNS Height 68.25 in 03/15/2024 Encounters Encounter Location Date Provider Diagnosis Ralf Landon DO [address] [id number] 02/14/2024 Ralf Landon Iron excess E83.19 Ralf Landon DO, [address] [id number] 04/03/2024 Ralf Landon Hereditary hemochromatosis E83.110 Ralf Landon DO, [address] [id number] 04/15/2024 Ralf Landon DO, [address] [id number] 09/27/2024 Ralf Landon DO, [address] [id number] 03/15/2024 Ralf Landon Hereditary hemochromatosis E83.110 and Gastroparesis K31.84 Ralf Landon DO, [address] [id number] 09/20/2024 Ralf Landon Hereditary hemochromatosis E83.110 ; [...] Date MEDICARE [address] [place] [phone] [id number] Yusef Novak Self - patient is the insured [employer] [facility] [employer] [address] [place] [address] [id number] Yusef Novak Self - patient is the [...]
--- OUTSIDE RECORDS SUMMARY | 2025-01-02 08:51 | XMS_ITS ---
Author Organization Ralf Landon DO, FACP Address [address] [place] [phone] Care Team Providers Care Stained Glass Painter Name Role Phone Ralf Landon Primary Care [...] AM EST > referral faxed; Berna @ [facility] Surgeons will call patient to schedule appointment; [...] Date Provider Diagnosis Ralf Servin Barbi DO, [address] [id number] 09/20/2024 Ralf Landon Hereditary hemochromatosis E83.110 ; [...] General Examination GENERAL APPEARANCE: in no ac ewiiaapaayp distress, well developed, well nourished LUNGS: breathing [...]
--- OUTSIDE RECORDS SUMMARY | 2025-01-02 08:51 | XMS_ITS ---
Author Organization [facility] Address [address] [place] [phone] Care Team Providers Care Weigher And Grader Name Role Phone Ralf Landon Primary Care Provider REASON FOR VISIT Needs referral Encounters Encounter Location Date Provider Diagnosis Ralf Landon DO [address] [id number] 09/27/2024 Ralf Landon PLAN OF TREATMENT No Information
[2025-01-02 09:19] LABS: Iron 115 mcg/dL (45-160); Percent Iron Saturation 45 % (15-50); Total Iron Binding Capacity 258 mcg/dL (228-428); Unsaturated Iron Binding 143 ug/dL
[2025-01-02 09:39] LABS: Ferritin 24 ng/mL (20-250)
== END 2025-01-02 08:26 | disposition home or self-care (01) ==
LOC: HO.BBR 08:25
PROVIDERS: Visit Provider Internal Medicine Medical Oncology
DX: E83.110 Hereditary hemochromatosis (principal)
CPT/HCPCS: 36415; 82728; 83540; 85025

== ENCOUNTER 2025-01-20 08:21 | Outpatient (REF) | payer MEDICARE, SELFPAY ==
[2025-01-20 08:35] LABS: MANUAL DIFF FLAG NO
[2025-01-20 08:52] LABS: Basophils Percent Auto 0.8 % (0-2); Eosinophils Absolute Auto 0.1 X10*3/uL (0.0-0.4); Eosinophils Percent Auto 1.4 % (0-4); Hematocrit 40.1 % (42.0-52.0); Hemoglobin 14.3 g/dl (14.0-18.0); Imm Gran Abs Auto 0.01 X10*3/uL (0.00-0.03); Imm Gran Pct Auto 0.2 % (0.0-0.4); Lymphocytes Absolute Auto 1.7 X10*3/uL (1.2-4.9); Lymphocytes Percent Auto 32.7 % (20-40); Mean Corpuscular HGB Conc 35.7 g/dl (31.0-36.0); Mean Corpuscular Hemoglobin 32.1 pg (27.0-33.0); Mean Corpuscular Volume 90.1 fL (80.0-98.0); Mean Platelet Volume 9.4 fL (9.4-12.4); Monocytes Absolute Auto 0.4 X10*3/uL (0.1-1.2); Monocytes Percent Auto 7.7 % (2-11); Neutrophils Absolute Auto 2.9 x10*3/uL (2.0-8.3); Neutrophils Percent Auto 57.2 % (45-73); Platelet Count 222 X10*3/uL (160-400); Red Blood Count 4.45 X10*6/uL (4.60-5.80); Red Cell Distribution Width 11.4 % (11.0-16.0); White Blood Count 5.1 X10*3/uL (4.8-10.8)
[2025-01-20 09:59] LABS: Alanine Aminotransferase 16 U/L (0-40); Alkaline Phosphatase 65 U/L (39-117); Anion Gap 9 (12-20); Aspartate Amino Transferase 26 U/L (5-37); Bilirubin Total 0.9 mg/dL (0.0-1.0); Blood Urea Nitrogen 13 mg/dL (9-16); Calcium 9.3 mg/dL (8.4-10.2); Carbon Dioxide 27 mmol/L (22-29); Chloride 102 mmol/L (96-108); Cholesterol 239 mg/dL (<200); Estimated Glomerular Filt Rate > 60; Glucose Fasting 89 mg/dL (60-99); HDL Cholesterol 122 mg/dL (>40); LDL Cholesterol Calculated 107 mg/dL (<100); Potassium 4.2 mmol/L (3.3-5.1); Sodium 134 mmol/L (135-145); Total Protein 6.9 g/dL (6.5-8.0); Triglycerides 51 mg/dL (<150)
[2025-01-20 10:03] LABS: PSA,Total (Free>4and<10) 0.62 ng/mL (0.00-4.00)
== END 2025-01-20 08:22 | disposition home or self-care (01) ==
LOC: HO.LAB 08:21
PROVIDERS: PCP Internal Medicine; Visit Provider Internal Medicine
DX: E83.110 Hereditary hemochromatosis (principal); K31.84 Gastroparesis; N40.0 Benign prostatic hyperplasia without lower urinary tract symptoms; R19.01 Right upper quadrant abdominal swelling, mass and lump; Z12.5 Encounter for screening for malignant neoplasm of prostate; Z13.6 Encounter for screening for cardiovascular disorders
CPT/HCPCS: 36415; 80053; 80061; 84153; 84443; 85025

== ENCOUNTER 2025-02-04 09:00 | Outpatient (AMB) | payer MEDICARE, SELFPAY ==
[2025-02-04 09:01] VITALS: BP 134/80; PULSE 64; TEMP 36.6; O2SAT 99; BMI 21.4
--- NOTE | 2025-02-04 09:01 | AM.OFFVISMDC ---
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: No Accompanied by: Self / Same As Patient Allergies cephalexin Allergy (Unknown, Verified 02/04/25 09:01) fatigue,rash dust mites, pollen Allergy (Unknown, Uncoded 02/04/25 09:01) unknown [facility] Medical History Lipoma of abdominal wall Small intestinal bacterial overgrowth (SIBO) Enlarged prostate Surgical History S/P excision of lipoma (~12/16/24) History of cardiac cath Family History (Updated 02/04/25 @ 09:11 by ALAN Siegel) Mother COPD (chronic obstructive pulmonary disease) Heart problem Father Dementia Social History (Updated 02/04/25 @ 09:11 by ALAN Siegel) Household Members: Spouse Alcohol intake: current Alcohol intake frequency: holidays/special occasions only Patient Tobacco Use Status: Never used Tobacco Substance Use Type: Other service: No 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 Medicare Wellness Checkup [age] What gender do you identify with?: male During the past 4 weeks, how much have you been bothered by emotional problems such as feeling anxious, depressed, irritable, sad or downhearted, and blue?: not at all During the past 4 weeks, has your physical & emotional health limited your social activities with family, friends, neighbors, or groups?: not at all During the past 4 weeks, how much bodily pain have you generally had?: no pain During the past 4 weeks, was someone available to help you if you needed & wanted help?: yes, as much as I wanted During the past 4 weeks, what was the hardest physical activity you could do for at least 2 minutes?: very heavy Can you get to places out of walking distance without help? (For eg., can you travel alone on buses, taxis or drive your car?): Yes Can you go shopping for groceries or clothes without someone's help?: Yes Can you prepare your own meals?: Yes Can you do your housework without help?: Yes Because of any health problems, do you need the help of another person with your personal care needs such as eating, bathing, dressing or getting around the house?: No Can you handle your own money without help?: Yes During the past 4 weeks, how would you rate your health in general?: very good During the past 4 weeks how have things been going for you?: pretty well Are you having difficulties driving your car?: yes, often During past 4 weeks, have you been bothered by the following: never: Falling or dizzy when standing up, Sexual problems?, Trouble eating well?, Teeth or denture problems? and Problems using the telephone? and sometimes: Tiredness or fatigue? Have you fallen 2 or more times in the past year?: No Are you afraid of falling?: No Are you a smoker?: no During the past 4 weeks, how many drinks of wine, beer, or other alcoholic beverages did you have?: 2-5 drinks per week Do you exercise for about 20 minutes 3 or more times a week?: yes, all the time Have you been given information to help with the following?: yes: Hazards in your house that might hurt you? and yes: Keeping track of your medications? How often do you have trouble taking medicines the way you have been told to take them?: I always take medicine as prescribed How confident are you that you can control & manage most of your health problems?: very confident What is your race?: White PHQ-9 Over the last 2 weeks, how often have you been bothered by any of the following problems? 1. Little interest or pleasure in doing things: not at all 2. Feeling down, depressed, or hopeless: not at all 3. Trouble falling or staying asleep, or sleeping too much: several days 4. Feeling tired or having little energy: several days 5. Poor appetite or overeating: not at all 6. Feeling bad about yourself - or that you are a failure or have let yourself or your family down: not at all 7. Trouble concentrating on things, such as reading the newspaper or watching television: not at all 8. Moving or speaking so slowly that other people could have noticed. Or the opposite - being so fidgety or restless that you have been moving around a lot more than usual: not at all 9. Thoughts that you would be better off or of hurting yourself in some way: not at all Total score: 2 Source: Developed by Drs. Ralf Newsome, Marilia aMssey, Jonah Perez and colleagues, with an educational eddie from [employer]. Physical Exam Vital Signs: Last Vital Signs Temp 97.8 F 02/04/25 09:01 Pulse 64 02/04/25 09:01 BP 134/80 02/04/25 09:01 Pulse Ox 99 02/04/25 09:01 Oxygen Delivery Method Room Air 02/04/25 09:01 BMI result Body Mass Index 21.4 Assessment & Plan Assessment & Plan (1) Annual physical exam: Code(s): Z00.00 - Encounter for general adult medical examination without abnormal findings Plan: History of Present Illness The patient is a 69-year-old male presenting with chronic digestive symptoms for evaluation during an annual wellness visit. The pervasive concern centers on a longstanding undiagnosed digestive issue marked by continuous burping and postprandial discomfort mitigated through physical activity, experienced over axe-lgt-m-half decades. Despite a range of previous assessments and treatments, the symptoms remain incompletely resolved. A gastric emptying study and endoscopy by Dr. Spivey did not highlight any substantial pathology. Likewise, a comprehensive SIBO treatment involving antibiotics and herbal remedies was ineffective. Discussions with an resident care provider pointed towards yeast overgrowth; however, the patient considers food allergies or sensitivities a potential contributor, contemplating further testing. He utilizes Motegrity for constipation with notable caution around potential testing interactions. 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 [place] - Very active with regular participation in outdoor activities such as hiking, golfing, and skiing - Reports good overall exercise tolerance and ability - Has a living will and healthcare proxies in place Review of Systems - Gastrointestinal: Reports chronic burping and discomfort after meals unless engaging in physical activity; Denies upset stomach except with lactose - Sleep: Reports poor sleep linked to digestive discomfort - Appetite: Appetite remains good Physical Exam General: Cooperative and healthy appearing Nutritional Appearance: Well nourished Orientation/consciousness: Patient oriented x3 Limitations: No limitations Head: Normal to inspection General: Appearance normal, both eyes and all related structures Neck: Normal visual inspection Chest: Normal palpation of entire chest wall Respiratory: Normal respiratory effort Neurology: Patient oriented x3 Results - Previous gastric emptying study and complete endoscopy were unremarkable - Methane-positive breath 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 Salas was the mainstay of this appointment, focusing on aligning existing strategies under Dr. Spivey?s guidance and holistic inputs from integrative therapy avenues. While Motegrity assists in bowel regulation, pending results of stool analysis may provide further insights. Emphasizing his proactive approach towards testing for food sensitivities as a way forward requires coordination with relevant specialists. Hemochromatosis management continues effectively with reduced-frequency phlebotomy. Health maintenance through comprehensive wellness practices remains paramount, keeping up with activity levels and holistic measures. Patient was informed and verbally consented to the use of an ambient scribe for clinic note documentation during this visit. Discussion Notes Mr. Salas and I reviewed the complexities surrounding his digestive symptoms, long managed through multidisciplinary channels including previous SIBO treatments, yet persisting. We discussed exploring the mediated release testing for potential food sensitivities, acknowledging the holistic path this inquiry follows. The logistics straightening for these assessments remain crucial, incorporating advisements from Dr. Spivey and forthcoming test outcomes. Clarity over Motegrity use around testing was affirmed. For hemochromatosis, an adjustment to bi-monthly phlebotomy aligns with clinical course improvement. Continual wellness practices serve his active lifestyle, reinforcing ongoing mindfulness towards dietary adjustments and lifestyle choices. Patient Instructions - Continue using Motegrity and monitor its effects, especially around test days. - Follow prescribed schedule for bi-monthly phlebotomies for hemochromatosis. - Engage in regular physical activities and record any digestive symptom changes. - Maintain a dietary journal and consider food sensitivity testing in the future. - Schedule follow-ups as discussed for further evaluations and sharing test outcomes. Quality Reporting (2020) Depression/Bipolar (159/160/161/177) PHQ-9: Total score: 2 Coding Level of Care Code Medicare First (G0438) Diagnoses Annual physical exam Z00.00
== END 2025-02-04 09:52 | disposition home or self-care (01) ==
LOC: HO.HMCSH 09:00
PROVIDERS: PCP Internal Medicine; Visit Provider Internal Medicine
DX: Z00.00 Encounter for general adult medical examination without abnormal findings (principal)

== ENCOUNTER 2025-02-04 10:41 | Outpatient (REF) | payer MEDICARE, SELFPAY ==
[2025-02-04 10:52] LABS: MANUAL DIFF FLAG NO
[2025-02-04 10:53] LABS: Basophils Percent Auto 0.7 % (0-2); Eosinophils Absolute Auto 0.1 X10*3/uL (0.0-0.4); Eosinophils Percent Auto 0.9 % (0-4); Hematocrit 39.4 % (42.0-52.0); Hemoglobin 14.3 g/dl (14.0-18.0); Imm Gran Abs Auto 0.02 X10*3/uL (0.00-0.03); Imm Gran Pct Auto 0.3 % (0.0-0.4); Lymphocytes Absolute Auto 1.1 X10*3/uL (1.2-4.9); Lymphocytes Percent Auto 19.8 % (20-40); Mean Corpuscular HGB Conc 36.3 g/dl (31.0-36.0); Mean Corpuscular Hemoglobin 32.5 pg (27.0-33.0); Mean Corpuscular Volume 89.5 fL (80.0-98.0); Mean Platelet Volume 9.4 fL (9.4-12.4); Monocytes Absolute Auto 0.4 X10*3/uL (0.1-1.2); Monocytes Percent Auto 6.3 % (2-11); Neutrophils Absolute Auto 4.1 x10*3/uL (2.0-8.3); Platelet Count 194 X10*3/uL (160-400); Red Cell Distribution Width 11.8 % (11.0-16.0); White Blood Count 5.7 X10*3/uL (4.8-10.8)
[2025-02-04 12:12] LABS: Iron 84 mcg/dL (45-160); Percent Iron Saturation 31 % (15-50); Total Iron Binding Capacity 267 mcg/dL (228-428); Unsaturated Iron Binding 183 ug/dL
[2025-02-04 12:28] LABS: Ferritin 17 ng/mL (20-250)
== END 2025-02-04 10:42 | disposition home or self-care (01) ==
LOC: HO.BBR 10:41
PROVIDERS: PCP Internal Medicine; Visit Provider Internal Medicine Medical Oncology
DX: E83.110 Hereditary hemochromatosis (principal)
CPT/HCPCS: 36415; 82728; 83540; 85025

== ENCOUNTER 2025-04-22 08:55 | Outpatient (REF) | payer MEDICARE, SELFPAY ==
[2025-04-22 09:07] LABS: MANUAL DIFF FLAG NO
[2025-04-22 09:09] LABS: Basophils Percent Auto 0.8 % (0-2); Eosinophils Absolute Auto 0.1 X10*3/uL (0.0-0.4); Hematocrit 37.8 % (42.0-52.0); Hemoglobin 13.6 g/dl (14.0-18.0); Imm Gran Abs Auto 0.01 X10*3/uL (0.00-0.03); Imm Gran Pct Auto 0.2 % (0.0-0.4); Lymphocytes Absolute Auto 1.2 X10*3/uL (1.2-4.9); Lymphocytes Percent Auto 25.2 % (20-40); Mean Corpuscular Hemoglobin 31.3 pg (27.0-33.0); Mean Corpuscular Volume 86.9 fL (80.0-98.0); Mean Platelet Volume 9.5 fL (9.4-12.4); Monocytes Absolute Auto 0.4 X10*3/uL (0.1-1.2); Monocytes Percent Auto 8.4 % (2-11); Neutrophils Absolute Auto 3.1 x10*3/uL (2.0-8.3); Neutrophils Percent Auto 63.4 % (45-73); Platelet Count 178 X10*3/uL (160-400); Red Blood Count 4.35 X10*6/uL (4.60-5.80); Red Cell Distribution Width 12.7 % (11.0-16.0); White Blood Count 4.9 X10*3/uL (4.8-10.8)
[2025-04-22 10:42] LABS: Iron 67 mcg/dL (45-160); Percent Iron Saturation 26 % (15-50); Total Iron Binding Capacity 257 mcg/dL (228-428); Unsaturated Iron Binding 190 ug/dL
[2025-04-22 10:50] LABS: Ferritin 12 ng/mL (20-250)
== END 2025-04-22 08:56 | disposition home or self-care (01) ==
LOC: HO.BBR 08:55
PROVIDERS: PCP Internal Medicine; Visit Provider Internal Medicine Medical Oncology
DX: E83.110 Hereditary hemochromatosis (principal)
CPT/HCPCS: 36415; 82728; 83540; 85025

== ENCOUNTER 2025-06-30 14:28 | Outpatient (AMB) | payer MEDICARE, SELFPAY ==
--- OUTSIDE RECORDS SUMMARY | 2025-06-30 15:11 | XMS_ITS | Clinical Summary ---
Author Organization [facility] Address [address] [place] [address] Phone Care Team Providers Care Hand Cell Tuber Name Role Phone Ralf Landon DO Primary Care Provider Allergies Active Allergy Reactions Criticality Noted Date Comments Tamsulosin 09/06/2022 Pt on this med for last 2 years no issues entered in error Medications Medication-Free Text vitamin B Active cholecalciferol (VITAMIN D3) 2,000 unit tablet Take 1,000 Units by mouth daily. Active tamsulosin (FLOMAX) 0.4 mg Cap 2 capsules at bedtime 60 capsule 10/13/2023 Active Active Problems Problem Noted Date Diagnosed Date BPH with obstruction/lower urinary tract symptom s 10/11/2023 Assessment & Plan (10/12/2023 5:42 PM EST): Patient has followed with outpatient urologist, increasing symptoms despite increasing Flomax dosing, nocturia urgency frequency. Status post aqua ablation today by Dr. Chong, patient tolerated the procedure well, seen in the PACU presently with punch colored urine, stable vital signs. Treated with CBI overnight but still having hematuria, bladder discomfort and passage of clots --Urology aware and f/u appreciated. Continue intermittent bladder irrigation as needed --Oxybutynin started for bladder spasm -- Anticipate discharge home pending improvement in hematuria and bladder discomfort Immunizations Immunization Administration Dates Next Due Influenza High-Dose Quadriva lent Preservative Free IM 10/13/2023(Deferred: Patient Refused) Social History Tobacco Use Types Packs/Day Years Used Date Smoking Tobacco: Never Smokeless Tobacco: Never Alcohol Use Standard Drinks/Week Comments Yes 0 (1 standard drink = 0.6 oz pur e alcohol) socially Home Health Assessment: Transportation Answer Date Recorded Lack of Transportation (Medical) No 10/24/2023 Lack of Transportation (Non-Medical) No 10/24/2023 Patient Unable or Declines to Respond No 10/24/2023 Education Answer Date Recorded Are you interested in more education? Not on jailyn e 03/10/2023 Are you concerned about learning? Not on file 03/10/2023 No 03/10/2023 No 03/10/2023 Digital Access Answer Date Recorded No 04/10/2023 No 04/10/2023 Reliable internet access at home? Not on file 04/10/2023 Device with a working camera? Not on file Intimate Partner Violence Answer Date R ecorded Are you denied basic needs s uch as food, clothing, or medical care? No 10/11/2023 In the past 12 months have y ou been in a relationship with a person who hurts, threatens, or tries to control you? No 10/11/2023 Are you denied basic needs s uch as food, clothing, or medical care? No 10/11/2023 In the past 12 months have y ou been in a relationship with a person who hurts, threatens, or tries to control you? No 10/11/2023 Sex and Gender Information Value Date Recorded Sex Assigned at Not on file Legal Sex Male 9:54 PM EDT Gender Identity Not on file Sexual Orientation Not on file Last Filed Vital Signs Vital Sign Reading Time Taken Comments Blood Pressure 130/68 10/15/2023 11:21 AM EST Pulse 71 10/15/2023 11:21 AM EST Temperature 36.1 C (97 F) 10/15/2023 11:21 AM EST Respiratory Rate 18 10/15/2023 11:21 AM EST Oxygen Saturation 100% 10/15/2023 11:21 AM EST Inhaled Oxygen Concentration - - Weight 70.3 kg (155 lb) 10/11/2023 7:00 AM EST Height 174 cm (5' 8.5 ) 10/11/2023 7:00 AM EST Body Mass Index 23.22 10/11/2023 7:00 AM EST Plan of Treatment Health Maintenance Due Date Last Done Comments DEPRESSION SCREENING 1968 HEPATITIS C SCREENING 1974 COLOGUARD 2001 COLONOSCOPY 2001 COLORECTAL CANCER SCREENING 2001 FIT TEST 2001 FOBT 2001 SIGMOIDOSCOPY 2001 VIRTUAL COLONOSCOPY 2001 PNEUMOCOCCAL VACCINES (50+ years) (1 of 1 - PCV) 2006 ZOSTER VACCINES (3 of 3) 12/18/2020 10/23/2020, 03/13 COVID-19 VACCINE ( season) 2024 09/25/2023, 10/15/2022, 04/24/2022, Additional history exists Adult Td,Tdap Booster 06/30/2027 06/30/2017 LIPID PANEL 09/28/2027 09/28/2022, 09/14, 09/07/2020, Additional history exists RSV VACCINE (1 - 1-dose 75+ series) 2031 SMOKING STATUS SCREENING (Once After 26 Yrs) Completed 10/10/2023 HEPATITIS A VACCINES Aged Out No long er eligible based on patient's age to complete this topic HIB VACCINES Aged Out No longer eligi ble based on patient's age to complete this topic MENINGOCOCCAL VACCINES (ACWY) Aged Out No longer eligible based on patient's age to complete this topic MENINGOCOCCAL VACCINES (B) Aged Out N o longer eligible based on patient's age to complete this topic Medical Devices Not on file Procedures Procedure Name Priority Date/Time Associated Diagnosis Comments LIPID PANEL Routine 09/28/2022 7:57 AM EST Screening for prostate cancer Routine general medical examination at a health care facility Benign non-nodular prostatic hyperplasia with lower urinary tract symptoms Gastroparesis from Last 3 Months or Most Recently Relevant to Health Maintenance Results * (ABNORMAL) Lipid panel (09/28/2022 7:57 AM EST) HDL 127 mg/dL [facility] Comment: Interpretation <40 mg/dL: Low HDL cholesterol (major risk factor for CHD) Greater than or equal to 60 mg/dL: High HDL cholesterol ( negative risk factor for CHD) HDL - cholesterol is affected by a number of factors, e.g. smoking, excerise, hormones, sex and age. CHOLESTEROL 231 0 - 240 mg/dL [facility] TRIGLYCERIDES 53 30 - 160 mg/dL [facility] LDL 93 50 - 129 mg/dL [facility] Comment: LDL levels in terms of risk for coronary heart disease: <100 mg/dL: Optimal 100-129 mg/dL: Near or above optimal 130-159 mg/dL: Borderline high 160-189 mg/dL: High >190 mg/dL: Very High CARDIAC RISK RATIO 1.8(L) 3.4 - 5.0 C [facility] Blood 09/28/2022 7:57 AM EST 09/28/2022 8:01 AM EST us Ralf Landon DO LAB BLOOD ORDERABLES Final R esult [facility] [address] [place], [place] [id number] from Last 3 Months or Most Recently Relevant to Health Maintenance Insurance MEDICARE PART A & B [employer] MEDEX SUPPLEMENT MEDICARE PART A & B MEDEX SUPPLEMENT MEDICARE PART A & B MEDICARE PART A & B MEDICARE PART A & B MEDEX SUPPLEMENT MEDICARE PART A & B MEDICARE PART A & B MEDEX SUPPLEMENT MEDICARE PART A & B [employer] CR[employer] MEDEX SUPPLEMENT MEDICARE PART A & B [employer] MEDEX SUPPLEMENT Advance Directives For more information, please contact: [phone] (9AM - 5PM [place]/[facility], Monday-Monday) Documents on File Type Date Recorded Patient Counter Manager Expl anation Healthcare Proxy 10/16/2023 2:48 PM * Full Code (Latest Code Status on File) Date Activated Date Inactivated Comments 10/11/2023 12:16 PM Question Answer Comments Code Status Confirmed With: Patient Care Teams Hand Cell Tuber Relationship Specialty Start Date End Date Ralf Landon DO [address] [place] [id number] PCP - General 11/16/17 Additional Source Comments The information contained in this document represents components of the legal health record. It is not the complete legal health record.[facility]
== END 2025-06-30 14:32 | disposition home or self-care (01) ==
LOC: HO.HMGAL 14:28
PROVIDERS: PCP Internal Medicine; Visit Provider Registered Nurse Emergency
DX: J30.89 Other allergic rhinitis (principal)
CPT/HCPCS: 95117; 95165

== ENCOUNTER 2025-07-21 09:47 | Outpatient (AMB) | payer MEDICARE, SELFPAY ==
--- OUTSIDE RECORDS SUMMARY | 2025-07-21 11:18 | XMS_ITS | Encounter Summary ---
Author Organization [facility] Address [address] [place] [phone] Phone Care Team Providers Care Safety Representative Name Role Phone Ralf Landon DO Primary Care Provider [phone] Encounter Details Date Type Department Care Team (Late st Contact Info) Description 10/11/2023 Procedure Pass OR Admitting Dept - Virtual Department [address] [place] [address] Social History Tobacco Use Types Packs/Day Years Used Date Smoking Tobacco: Never Smokeless Tobacco: Never Alcohol Use Standard Drinks/Week Comments Yes 0 (1 standard drink = 0.6 oz pur e alcohol) socially Home Health Assessment: Transportation Answer Date Recorded Lack of Transportation (Medical) No 10/15/2023 Lack of Transportation (Non-Medical) No 10/15/2023 Patient Unable or Declines to Respond No 10/15/2023 Education Answer Date Recorded Are you interested [...] on file Sexual Orientation Not on file documented as of this encounter Functional Status * Calculated C-SSRS Risk Score (Lifetime/Recent) Answer Date of Assessment Author No Risk Indicated 10/11/2023 12:23 PM Li Muse RN * [place] Suicide Severity Rating Scale (Screener/Recent Self-Report) Question Answer Date of Assessment Author 1. Wish to be (Past 1 Month) No 023 12:23 PM Li Muse RN 2. Non-Specific Active Suici tommie Thoughts (Past 1 Month) No 10/11/2023 12:23 PM Jairo Muse RN 6. Suicidal Behavior (Lifetime) No 12:23 PM Li Muse RN documented as of this encounter Plan of Treatment Not on file documented as of this encounter Visit Diagnoses Not on filedocumented in this encounter Care Teams Safety Representative Relationship Specialty Start Date End Date Ralf Landon DO [address] [place] [id number] PCP - General 11/16/17 documented as of this encounter Additional Source Comments The information contained in this document represents components of the legal health record. It is not the complete legal health record.[facility]
--- OUTSIDE RECORDS SUMMARY | 2025-07-21 11:18 | XMS_ITS | Encounter Summary ---
Author Organization [facility] Address [address] [place] [address] Phone Care Team Providers Care Telephone Collector Name Role Phone BarbiRalf DO Primary Care Provider Encounter Details Date Type Department Care Team (Late st Contact Info) Description 12/18/2019 Transcribe Orders [facility] Specimen Processing [address] [place] [address] Mellissa Stokes MD [id number] [place] [address] [email or web address] Social History Tobacco Use Types Packs/Day Years Used Date Smoking Tobacco: Never Smokeless Tobacco: Never Alcohol Use Standard Drinks/Week Comments Yes 0 (1 standard drink = 0.6 oz pur e alcohol) socially Sex and Gender Information Value Date Recorded Sex Assigned at Not on file Legal Sex Male 9:54 PM EDT Gender Identity Not on file Sexual Orientation Not on file documented as of this encounter Plan of Treatment Not on file documented as of this encounter Visit Diagnoses Not on filedocumented in this encounter Additional Health Concerns Infection Onset Date Last Indicated Resolved Time CoV-Exposed Comment:Recent close contact documented in the COVID-19 PCR/PRO order 12/24/2020 12/27/2020 01/08/2021 1:[address] CoV-Risk 12/27/2020 12/27/2020 01/06/2021 1:23 AM EST CoV-Exposed Comment:Recent close contact documented in the COVID-19 PCR/PRO order 01/13/2021 01/13/2021 01/28/2021 1:23 AM E DT documented as of this encounter Care Teams Telephone Collector Relationship Specialty Start Date End Date Ralf Landon DO [address] [place] [id number] PCP - General 11/16/17 documented as of this encounter Additional Source Comments The information contained in this document represents components of the legal health record. It is not the complete legal health record.[facility]
--- OUTSIDE RECORDS SUMMARY | 2025-07-21 11:18 | XMS_ITS | Encounter Summary ---
Author Organization [facility] Address [address] [place] [address] Phone Care Team Providers Care Pretzel Twisting Machine Operator Name Role Phone Ralf Landon DO Primary Care Provider [phone] Encounter Details Date Type Department Care Team (Latest Contact Info) Description 04/11/2019 Transcribe Orders [facility] [address] [place] [address] Ralf Landon DO [address] [place] [phone] Routine general medical examination at a health care facility (Primary Dx); Benign prostatic hyperplasia, unspecified whether lower urinary tract symptoms present Social History Tobacco Use Types Packs/Day Years [...] on file documented as of this encounter Results * (ABNORMAL) URINALYSIS WITH SEDIMENT (04/11/2019 8:00 AM EDT) WBC 0-4(A) NONE SEEN /hpf [facility] RBC 0-2(A) NONE SEEN /hpf [facility] URINE EPITHELIAL 0-4(A) NONE SEEN [facility] MUCUS NONE SEEN NONE SEEN /hpf [facility] BACTERIA Trace(A) NONE SEEN [facility] COLOR Yellow Yellow [facility] CLARITY Clear [facility] GLUCOSE Negative Negative [facility] BILI Negative Negative [facility] KETONES Negative Negative [facility] SPECIFIC GRAVITY <1.005 1.005 - 1.030 [facility] BLOOD 1+(A) Negative [facility] PH 7.0 5.0 - 8.0 [facility] Protein-UA Negative Negative [facility] NITRITE Negative Negative [facility] Leukocyte esterase, ur Negative Negative [facility] Urine (Urine) 04/11/2019 8:0 0 AM EDT 04/11/2019 8:22 AM EDT Ralf Landon DO URINE ORDERABLES Final Resul t Performing Organization Address [facility] Co de Phone Number [address] [address] * PSA (screening) (04/11/2019 8:00 AM EDT) PSA 0.83 0 - 4.00 ng/mL [facility] Blood 04/11/2019 8:00 AM EDT 04/11/2019 8:23 AM EDT Ralf Landon DO LAB BLOOD ORDERABLES Final R esult Performing Organization Address [facility] Co de Phone Number [address] [phone] * Comprehensive metabolic panel (04/11/2019 8:00 AM EDT) SODIUM 135 133 - 146 mmol/L [facility] POTASSIUM 4.5 3.3 - 5.1 mmol/L [facility] CHLORIDE 98 96 - 108 mmol/L [facility] CO2 27 21 - 35 mmol/L [facility] BUN 11 6 - 19 mg/dL [facility] CREATININE 1.00 0.5 - 1.5 mg/dL [facility] GLUCOSE 83 70 - 99 mg/dL [facility] ALBUMIN 4.0 3.9 - 4.8 g/dL [facility] TOTAL PROTEIN 6.7 6.5 - 8.0 g/dL [facility] CALCIUM 9.5 8.4 - 10.3 mg/dL [facility] ALKALINE PHOSPHATASE 60 39 - 117 U/L [facility] TOTAL BILIRUBIN 0.8 0.0 - 1.2 mg/dL [facility] AST 31 0 - 37 U/L [facility] ALT 19 0 - 40 U/L [facility] GLOBULIN 2.7 1 - 4.8 g/dL [facility] EGFR 80 >59 mL/min/1.7 3m2 [facility] Comment:If patient is black, multiply result by 1.159. Estimated glomerular filtration rate calculated using the CKD-EPI equation. ANION GAP 15 10 - 20 mmol/L [facility] Blood 04/11/2019 8:00 AM EDT 04/11/2019 8:23 AM EDT us Ralf Landon DO LAB BLOOD ORDERABLES Final R esult [address] [address] * (ABNORMAL) Lipid panel (04/11/2019 8:00 AM EDT) HDL 124 mg/dL [facility] Comment: Interpretation <40 mg/dL: Low HDL cholesterol (major risk factor for CHD) Greater than or equal to 60 mg/dL: High HDL cholesterol ( negative risk factor for CHD) HDL - cholesterol is affected by a number of factors, e.g. smoking, excerise, hormones, sex and age. CHOLESTEROL 215 0 - 240 mg/dL [facility] TRIGLYCERIDES 50 30 - 160 mg/dL [facility] LDL 81 50 - 129 mg/dL [facility] Comment: LDL levels in terms of risk for coronary heart disease: <100 mg/dL: Optimal 100-129 mg/dL: Near or above optimal 130-159 mg/dL: Borderline high 160-189 mg/dL: High >190 mg/dL: Very High CARDIAC RISK RATIO 1.7(L) 3.4 - 5.0 C [facility] Blood 04/11/2019 8:00 AM EDT 04/11/2019 8:23 AM EDT us Ralf Landon DO LAB BLOOD ORDERABLES Final R esult [facility] [address] [place], [place] [phone] * (ABNORMAL) CBC and differential (04/11/2019 8:00 AM EDT) WBC 5.13 3.40 - 11.20 K/uL [facility] RBC 4.34(L) 4.50 - 5.50 M/uL [facility] HGB 14.6 13.0 - 17.0 g/dL [facility] HCT 40.8 40.0 - 51.0 % [facility] PLT 175 130 - 400 K/uL [facility] MCV 94.0 79.0 - 98.0 fL [facility] MCH 33.6 27.0 - 34.8 pg [facility] MCHC 35.8 31.5 - 36.0 g/dL [facility] RDW 11.6 10.8 - 14.6 % [facility] MPV 10.2 9.4 - 12.4 fl [facility] NRBC 0.00 0.00 /100 WBCs [facility] ABSOLUTE NRBC 0.00 0.00 K/uL [facility] DIFF METHOD Auto [facility] NEUTS 53.6 45.30 - 77.70 % [facility] LYMPHS 35.5 12.30 - 39.70 % [facility] MONOS 7.4 4.10 - 12.80 % [facility] EOS 2.5 0 - 7.2 % [facility] BASOS 0.8 0 - 2.80 % [facility] Granulocytes, immature (%) 0.2 0.0 - 0.9 % [facility] ABSOLUTE NEUTS 2.75 1.40 - 7.70 K/uL [facility] ABSOLUTE LYMPHS 1.82 0.60 - 3.20 K/uL [facility] ABSOLUTE MONOS 0.38 0.11 - 0.59 K/uL [facility] ABSOLUTE EOS 0.13 0.01 - 0.50 K/uL [facility] ABSOLUTE BASOS 0.04 0.00 - 0.08 K/uL [facility] Granulocytes, immature 0.01 0.00 - 0.05 K/uL [facility] Blood 04/11/2019 8:00 AM EDT 04/11/2019 8:23 AM EDT Ralf Landon DO LAB BLOOD ORDERABLES Final R esult [facility] [address] [place] [address] documented in this encounter Visit Diagnoses Diagnosis Routine general medical examination at a health care facility- Primary Benign prostatic hyperplasia, unspecified whether lower urinary tract symptoms present documented in this encounter Additional Health Concerns Infection Onset Date Last Indicated Resolved Time CoV-Exposed Comment:Recent close contact documented in the COVID-19 PCR/PRO order 12/24/2020 12/27/2020 01/08/2021 1:[address] CoV-Risk 12/27/2020 12/27/2020 01/06/2021 1:23 AM EST CoV-Exposed Comment:Recent close contact documented in the COVID-19 PCR/PRO order 01/13/2021 01/13/2021 01/28/2021 1:23 AM E DT documented as of this encounter Care Teams Pretzel Twisting Machine Operator Relationship Specialty Start Date End Date Ralf Landon, [address] [place] [phone] PCP - General 11/16/17 documented as of this encounter Additional Source Comments The information contained in this document represents components of the legal health record. It is not the complete legal health record.[facility]
--- OUTSIDE RECORDS SUMMARY | 2025-07-21 11:18 | XMS_ITS | Clinical Summary ---
Author Organization [facility] Address [address] [place] [address] Phone Care Team Providers Care Recreation Assistant Name Role Phone Ralf Landon DO Primary Care Provider [phone] Allergies Active Allergy Reactions Criticality Noted Date [...] VACCINES (3 of 3) 12/18/2020 10/23/2020, 03/13 INFLUENZA VACCINE (#1) 2025 , 09/02/2021, 09/22/2020, Additional history exists COVID-19 VACCINE (2024- season) 2025 09/25/2023, 10/15/2022, 04/24/2022, Additional history exists Adult [...] (09/28/2022 7:57 AM EST) HDL 127 mg/dL [facility] Comment: Interpretation <40 mg/dL: Low HDL cholesterol (major risk factor for CHD) Greater than or equal to 60 mg/dL: High HDL cholesterol ( negative risk factor for CHD) HDL - cholesterol is affected by a number of factors, e.g. smoking, excerise, hormones, sex and age. CHOLESTEROL 231 0 - 240 mg/dL [facility] TRIGLYCERIDES 53 30 - 160 mg/dL [facility] LDL 93 50 - 129 mg/dL [facility] Comment: LDL levels in terms of risk for coronary heart disease: <100 mg/dL: Optimal 100-129 mg/dL: Near or above optimal 130-159 mg/dL: Borderline high 160-189 mg/dL: High >190 mg/dL: Very High CARDIAC RISK RATIO 1.8(L) 3.4 - 5.0 C [facility] Blood 09/28/2022 7:57 AM EST 09/28/2022 8:01 AM EST us Ralf Landon DO LAB BLOOD ORDERABLES Final R esult Performing Organization Address City/State/[facility] Co de Phone Number [address] [address] from Last 3 Months or Most Recently Relevant to Health Maintenance Insurance MEDICARE PART A & B [employer] MEDEX SUPPLEMENT MEDICARE PART A & B MEDEX SUPPLEMENT MEDICARE PART A & B MEDICARE PART A & B MEDICARE PART A & B BLUE CROSS MEDEX SUPPLEMENT MEDICARE PART A & B MEDICARE PART A & B [employer] MEDEX SUPPLEMENT MEDICARE PART A & B [employer] CROSS MEDEX SUPPLEMENT MEDICARE PART A & B [employer] MEDEX SUPPLEMENT Advance Directives For more information, please contact: [phone] (9AM - 5PM [place]/[facility], Monday-Monday) Documents on File Type Date Recorded Patient Dirt Supervisor Expl anation Healthcare Proxy 10/16/2023 2:48 PM * Full Code (Latest Code Status on File) Date Activated Date Inactivated Comments 10/11/2023 12:16 PM Question Answer Comments Code Status Confirmed With: Patient Care Teams Recreation Assistant Relationship Specialty Start Date End Date Ralf Landon DO [address] [place] [phone] PCP - General 11/16/17 Additional Source Comments The information contained in this document represents components of the legal health record. It is not the complete legal health record.[facility]
--- OUTSIDE RECORDS SUMMARY | 2025-07-21 11:18 | XMS_ITS | Encounter Summary ---
Author Organization [facility] Address [address] [place] [address] Phone Care Team Providers Care Dietary Clerk Name Role Phone Ralf Landon DO Primary Care Provider [phone] Encounter Details Date Type Department Care Team (Latest Contact Info) Description 03/23/2018 Transcribe Orders [facility] [address] [place] [phone] Ralf Landon DO [address] [place] [address] Routine general medical examination at a health care facility (Primary Dx); Benign localized hyperplasia of prostate with urinary retention Social History Tobacco Use Types Packs/Day Years Used Date Smoking Tobacco: Never Assessed Sex and Gender Information Value Date Recorded Sex Assigned at Not on file Legal Sex Male 9:54 PM EDT Gender Identity Not on file Sexual Orientation Not on file documented as of this encounter Plan of Treatment Not on file documented as of this encounter Results * (ABNORMAL) Urinalysis with sediment (03/23/2018 7:51 AM EDT) WBC 0-4(A) NONE SEEN /hpf [facility] RBC 3-5(A) NONE SEEN /hpf [facility] URINE EPITHELIAL 0-4(A) NONE SEEN [facility] MUCUS Trace(A) NONE SEEN /hpf [facility] BACTERIA Trace(A) NONE SEEN [facility] COLOR Yellow Yellow [facility] CLARITY Clear [facility] GLUCOSE Negative Negative [facility] BILI Negative Negative [facility] KETONES Negative Negative [facility] SPECIFIC GRAVITY <1.005 1.005 - 1.030 [facility] BLOOD 1+(A) Negative [facility] PH 7.0 5.0 - 8.0 [facility] Protein-UA Negative Negative [facility] NITRITE Negative Negative [facility] Leukocyte esterase, ur Negative Negative [facility] Urine (Urine) 03/23/2018 7:5 1 AM EDT 03/23/2018 7:58 AM EDT Ralf Landon DO URINE ORDERABLES Final Resul t Performing Organization Address [facility] Co de Phone Number [address] [address] * PSA (screening) (03/23/2018 7:51 AM EDT) PSA 1.06 0 - 4.00 ng/mL [facility] Blood 03/23/2018 7:51 AM EDT 03/23/2018 8:01 AM EDT Ralf Landon DO LAB BLOOD ORDERABLES Final R esult Performing Organization Address City/[facility] Co de Phone Number [address] [address] * Comprehensive metabolic panel (03/23/2018 7:51 AM EDT) SODIUM 137 133 - 146 mmol/L [facility] POTASSIUM 4.6 3.3 - 5.1 mmol/L [facility] CHLORIDE 98 96 - 108 mmol/L [facility] CO2 27 21 - 35 mmol/L [facility] BUN 16 6 - 19 mg/dL [facility] CREATININE 1.10 0.5 - 1.5 mg/dL [facility] GLUCOSE 85 70 - 99 mg/dL [facility] ALBUMIN 4.1 3.9 - 4.8 g/dL [facility] TOTAL PROTEIN 6.8 6.5 - 8.0 g/dL [facility] CALCIUM 9.2 8.4 - 10.3 mg/dL [facility] ALKALINE PHOSPHATASE 57 39 - 117 U/L [facility] TOTAL BILIRUBIN 0.8 0.0 - 1.2 mg/dL [facility] AST 30 0 - 37 U/L [facility] ALT 18 0 - 40 U/L [facility] GLOBULIN 2.7 1 - 4.8 g/dL [facility] EGFR 72 >59 mL/min/1.7 3m2 [facility] Comment:If patient is black, multiply result by 1.159. The eGFR calculation has changed from the MDRD equation to the CKD-EPI equation as of January 16, 2018. ANION GAP 17 10 - 20 mmol/L [facility] Blood 03/23/2018 7:51 AM EDT 03/23/2018 7:58 AM EDT us Ralf Landon DO LAB BLOOD ORDERABLES Final R esult Performing Organization Address [facility]/ZIP Co de Phone Number [address] [address] * (ABNORMAL) Lipid panel (03/23/2018 7:51 AM EDT) HDL 117 mg/dL [facility] Comment: Interpretation: Risk Level Males Decreased >45 mg/dL Average 40-45 mg/dL Increased <40 mg/dL CHOLESTEROL 200 0 - 240 mg/dL [facility] TRIGLYCERIDES 67 30 - 160 mg/dL [facility] LDL 70 50 - 129 mg/dL [facility] Comment: LDL levels in terms of risk for coronary heart disease: <100 mg/dL: Optimal 100-129 mg/dL: Near or above optimal 130-159 mg/dL: Borderline high 160-189 mg/dL: High >190 mg/dL: Very High CARDIAC RISK RATIO 1.7(L) 3.4 - 5.0 C [facility] Blood 03/23/2018 7:51 AM EDT 03/23/2018 7:58 AM EDT Ralf Landon DO LAB BLOOD ORDERABLES Final R esult Performing Organization Address [facility]/ZIP Co de Phone Number [address] [address] * (ABNORMAL) CBC and differential (03/23/2018 7:51 AM EDT) WBC 4.75 3.40 - 11.20 K/uL [facility] RBC 4.43(L) 4.50 - 5.50 M/uL [facility] HGB 14.9 13.0 - 17.0 g/dL [facility] HCT 40.4 40.0 - 51.0 % [facility] PLT 177 130 - 400 K/uL [facility] MCV 91.2 79.0 - 98.0 fL [facility] MCH 33.6 27.0 - 34.8 pg [facility] MCHC 36.9(H) 31.5 - 36.0 g/dL [facility] RDW 11.4 10.8 - 14.6 % [facility] MPV 10.3 9.4 - 12.4 fl [facility] NRBC 0.00 /100 WBCs [facility] ABSOLUTE NRBC 0.00 K/uL [facility] DIFF METHOD Auto [facility] NEUTS 50.2 45.30 - 77.70 % [facility] LYMPHS 39.2 12.30 - 39.70 % [facility] MONOS 6.9 4.10 - 12.80 % [facility] EOS 2.9 0 - 7.2 % [facility] BASOS 0.6 0 - 2.80 % [facility] Granulocytes, immature (%) 0.2 0.0 - 0.9 % [facility] ABSOLUTE NEUTS 2.38 1.40 - 7.70 K/uL [facility] ABSOLUTE LYMPHS 1.86 0.60 - 3.20 K/uL [facility] ABSOLUTE MONOS 0.33 0.11 - 0.59 K/uL [facility] ABSOLUTE EOS 0.14 0.01 - 0.50 K/uL [facility] ABSOLUTE BASOS 0.03 0.00 - 0.08 K/uL [facility] Granulocytes, immature 0.01 0.00 - 0.05 K/uL [facility] Blood 03/23/2018 7:51 AM EDT 03/23/2018 7:58 AM EDT Ralf Landon DO LAB BLOOD ORDERABLES Final R esult [facility] [address] [place] [address] documented in this encounter Visit Diagnoses Diagnosis Routine general medical examination at a health care facility- Primary Benign localized hyperplasia of prostate with urinary retention Benign localized hyperplasia of prostate with urinary obstruction and other lower urinary tract symptoms (LUTS) documented in this encounter Additional Health Concerns Infection Onset Date Last Indicated Resolved Time CoV-Exposed Comment:Recent close contact documented in the COVID-19 PCR/PRO order 12/24/2020 12/27/2020 01/08/2021 1:[address] CoV-Risk 12/27/2020 12/27/2020 01/06/2021 1:23 AM EST CoV-Exposed Comment:Recent close contact documented in the COVID-19 PCR/PRO order 01/13/2021 01/13/2021 01/28/2021 1:23 AM E DT documented as of this encounter Care Teams Dietary Clerk Relationship Specialty Start Date End Date Ralf Landon, [address] [place] [address] PCP - General 11/16/17 documented as of this encounter Additional Source Comments The information contained in this document represents components of the legal health record. It is not the complete legal health record.[facility]
--- OUTSIDE RECORDS SUMMARY | 2025-07-21 11:18 | XMS_ITS | Encounter Summary ---
Author Organization [facility] Address [address] [place] [address] Phone Care Team Providers Care Technical Marketing Engineer Name Role Phone Ralf Landon DO Primary Care Provider Encounter Details Date Type Department Care Team (Late st Contact Info) Description 10/31/2022 Procedure Pass [facility], Ct Scan - [address] [address] Social History Tobacco Use Types Packs/Day Years [...] on filedocumented in this encounter Care Teams Technical Marketing Engineer Relationship Specialty Start Date End Date Ralf Landon DO [address] [place] [address] PCP - General 11/16/17 documented as of this encounter Additional Source Comments The information contained in this document represents components of the legal health record. It is not the complete legal health record.[facility]
== END 2025-07-21 09:48 | disposition home or self-care (01) ==
LOC: HO.HMGAL 09:47
PROVIDERS: PCP Internal Medicine; Visit Provider Registered Nurse Emergency
DX: J30.89 Other allergic rhinitis (principal)
CPT/HCPCS: 95117; 95165

== ENCOUNTER 2025-08-18 11:47 | Outpatient (AMB) | payer MEDICARE, SELFPAY ==
--- OUTSIDE RECORDS SUMMARY | 2025-08-18 14:19 | XMS_ITS | Encounter Summary ---
Author Organization [facility] Address [address] [place] [address] Phone Care Team Providers Care Passenger Car Cleaning Supervisor Name Role Phone Ralf Landon DO Primary Care Provider [phone]- [phone] Encounter Details Date Type Department Care Team (Latest Contact Info) Description 04/11/2019 Transcribe Orders [facility] [address] [place] [address] Ralf Landon DO [address] [place] [address] Routine general medical examination at a health [...] AM EDT) WBC 0-4(A) NONE SEEN /hpf [facility] RBC 0-2(A) NONE SEEN /hpf [facility] URINE EPITHELIAL 0-4(A) NONE SEEN [facility] MUCUS NONE SEEN NONE SEEN /hpf [facility] BACTERIA Trace(A) NONE SEEN [facility] COLOR Yellow Yellow [facility] CLARITY Clear [facility] GLUCOSE Negative Negative [facility] BILI Negative Negative [facility] KETONES Negative Negative [facility] SPECIFIC GRAVITY <1.005 1.005 - 1.030 [facility] BLOOD 1+(A) Negative [facility] PH 7.0 5.0 - 8.0 [facility] Protein-UA Negative Negative [facility] NITRITE Negative Negative [facility] Leukocyte esterase, ur Negative Negative [facility] Urine (Urine) 04/11/2019 8:0 0 AM EDT 04/11/2019 8:22 AM EDT Ralf Landon DO URINE ORDERABLES Final Resul t Performing Organization Address [facility] Co de Phone Number [address] [address] * PSA (screening) (04/11/2019 8:00 AM EDT) PSA 0.83 0 - 4.00 ng/mL [facility] Blood 04/11/2019 8:00 AM EDT 04/11/2019 8:23 AM EDT Ralf Landon DO LAB BLOOD ORDERABLES Final R esult Performing Organization Address [facility] Co de Phone Number [address] [address] * Comprehensive metabolic panel (04/11/2019 8:00 AM EDT) SODIUM 135 133 - 146 mmol/L [facility] POTASSIUM 4.5 3.3 - 5.1 mmol/L [facility] CHLORIDE 98 96 - 108 mmol/L [facility] CO2 27 21 - 35 mmol/L [facility] BUN 11 6 - 19 mg/dL [facility] CREATININE 1.00 0.5 - 1.5 mg/dL [facility] GLUCOSE 83 70 - 99 mg/dL [facility] ALBUMIN 4.0 3.9 - 4.8 g/dL [facility] TOTAL PROTEIN 6.7 6.5 - 8.0 g/dL [facility] CALCIUM 9.5 8.4 - 10.3 mg/dL [facility] ALKALINE PHOSPHATASE 60 39 - 117 U/L [facility] TOTAL BILIRUBIN 0.8 0.0 - 1.2 mg/dL [facility] AST 31 0 - 37 U/L [facility] ALT 19 0 - 40 U/L [facility] GLOBULIN 2.7 1 - 4.8 g/dL [facility] EGFR 80 >59 mL/min/1.7 3m2 [facility] Comment:If patient is black, multiply result by 1.159. Estimated glomerular filtration rate calculated using the CKD-EPI equation. ANION GAP 15 10 - 20 mmol/L [facility] Blood 04/11/2019 8:00 AM EDT 04/11/2019 8:23 AM EDT us Ralf Landon DO LAB BLOOD ORDERABLES Final R esult [address] [address] * (ABNORMAL) Lipid panel (04/11/2019 8:00 AM EDT) HDL 124 mg/dL [facility] Comment: Interpretation <40 mg/dL: Low HDL cholesterol (major risk factor for CHD) Greater than or equal to 60 mg/dL: High HDL cholesterol ( negative risk factor for CHD) HDL - cholesterol is affected by a number of factors, e.g. smoking, excerise, hormones, sex and age. CHOLESTEROL 215 0 - 240 mg/dL [facility] TRIGLYCERIDES 50 30 - 160 mg/dL [facility] LDL 81 50 - 129 mg/dL [facility] Comment: LDL levels in terms of risk for coronary heart disease: <100 mg/dL: Optimal 100-129 mg/dL: Near or above optimal 130-159 mg/dL: Borderline high 160-189 mg/dL: High >190 mg/dL: Very High CARDIAC RISK RATIO 1.7(L) 3.4 - 5.0 C [facility] Blood 04/11/2019 8:00 AM EDT 04/11/2019 8:23 AM EDT us Ralf Landon DO LAB BLOOD ORDERABLES Final R esult [facility] [address] [place], [place] [id number] * (ABNORMAL) CBC and differential (04/11/2019 8:00 AM EDT) WBC 5.13 3.40 - 11.20 K/uL [facility] RBC 4.34(L) 4.50 - 5.50 M/uL [facility] HGB 14.6 13.0 - 17.0 g/dL [facility] HCT 40.8 40.0 - 51.0 % [facility] PLT 175 130 - 400 K/uL [facility] MCV 94.0 79.0 - 98.0 fL [facility] MCH 33.6 27.0 - 34.8 pg [facility] MCHC 35.8 31.5 - 36.0 g/dL [facility] RDW 11.6 10.8 - 14.6 % [facility] MPV 10.2 9.4 - 12.4 fl [facility] NRBC 0.00 0.00 /100 WBCs [facility] ABSOLUTE NRBC 0.00 0.00 K/uL [facility] DIFF METHOD Auto [facility] NEUTS 53.6 45.30 - 77.70 % [facility] LYMPHS 35.5 12.30 - 39.70 % [facility] MONOS 7.4 4.10 - 12.80 % [facility] EOS 2.5 0 - 7.2 % [facility] BASOS 0.8 0 - 2.80 % [facility] Granulocytes, immature (%) 0.2 0.0 - 0.9 % [facility] ABSOLUTE NEUTS 2.75 1.40 - 7.70 K/uL [facility] ABSOLUTE LYMPHS 1.82 0.60 - 3.20 K/uL [facility] ABSOLUTE MONOS 0.38 0.11 - 0.59 K/uL [facility] ABSOLUTE EOS 0.13 0.01 - 0.50 K/uL [facility] ABSOLUTE BASOS 0.04 0.00 - 0.08 K/uL [facility] Granulocytes, immature 0.01 0.00 - 0.05 K/uL [facility] Blood 04/11/2019 8:00 AM EDT 04/11/2019 8:23 AM EDT Ralf Landon DO LAB BLOOD ORDERABLES Final R esult [facility] [address] [place] [address] documented in this encounter Visit Diagnoses Diagnosis [...] documented as of this encounter Care Teams Passenger Car Cleaning Supervisor Relationship Specialty Start Date End Date Ralf Landon, [address] [place] [address] PCP - General 11/16/17 documented as of this encounter Additional Source Comments The information contained in this document represents components of the legal health record. It is not the complete legal health record.[facility]
--- OUTSIDE RECORDS SUMMARY | 2025-08-18 14:19 | XMS_ITS | Encounter Summary ---
Author Organization [facility] Address [address] [facility] [address] [place] [address] Phone Care Team Providers Care Fire Captain Marine Name Role Phone Ralf Landon DO Primary Care Provider [phone] Encounter Details Date Type Department Care Team (Latest Contact Info) Description 03/23/2018 Transcribe Orders [facility] [address] [place] [phone] Ralf Landon DO [address] [place] [address] Routine general medical examination at a health [...] HOSPITAL SPECIFIC GRAVITY <1.005 1.005 - 1.030 [facility] BLOOD 1+(A) Negative [facility] PH 7.0 5.0 - 8.0 [facility] Protein-UA Negative Negative [facility] NITRITE Negative Negative [facility] Leukocyte esterase, ur Negative Negative [facility] Urine (Urine) 03/23/2018 7:5 1 AM EDT 03/23/2018 7:58 AM EDT Ralf Landon DO URINE ORDERABLES Final Resul t Performing Organization Address [facility] Co de Phone Number [address] [address] * PSA (screening) (03/23/2018 7:51 AM EDT) PSA 1.06 0 - 4.00 ng/mL [facility] Blood 03/23/2018 7:51 AM EDT 03/23/2018 8:01 AM EDT Ralf Landon DO LAB BLOOD ORDERABLES Final R esult Performing Organization Address City/[facility] Co de Phone Number [address] [address] * Comprehensive metabolic panel (03/23/2018 7:51 AM EDT) SODIUM 137 133 - 146 mmol/L [facility] POTASSIUM 4.6 3.3 - 5.1 mmol/L [facility] CHLORIDE 98 96 - 108 mmol/L [facility] CO2 27 21 - 35 mmol/L [facility] BUN 16 6 - 19 mg/dL [facility] CREATININE 1.10 0.5 - 1.5 mg/dL [facility] GLUCOSE 85 70 - 99 mg/dL [facility] ALBUMIN 4.1 3.9 - 4.8 g/dL [facility] TOTAL PROTEIN 6.8 6.5 - 8.0 g/dL [facility] CALCIUM 9.2 8.4 - 10.3 mg/dL [facility] ALKALINE PHOSPHATASE 57 39 - 117 U/L [facility] TOTAL BILIRUBIN 0.8 0.0 - 1.2 mg/dL [facility] AST 30 0 - 37 U/L [facility] ALT 18 0 - 40 U/L [facility] GLOBULIN 2.7 1 - 4.8 g/dL [facility] EGFR 72 >59 mL/min/1.7 3m2 [facility] Comment:If patient is black, multiply result by 1.159. The eGFR calculation has changed from the MDRD equation to the CKD-EPI equation as of January 16, 2018. ANION GAP 17 10 - 20 mmol/L [facility] Blood 03/23/2018 7:51 AM EDT 03/23/2018 7:58 AM EDT us Ralf Landon DO LAB BLOOD ORDERABLES Final R esult Performing Organization Address [facility]/ZIP Co de Phone Number [address] [address] * (ABNORMAL) Lipid panel (03/23/2018 7:51 AM EDT) HDL 117 mg/dL [facility] Comment: Interpretation: Risk Level Males Decreased >45 mg/dL Average 40-45 mg/dL Increased <40 mg/dL CHOLESTEROL 200 0 - 240 mg/dL [facility] TRIGLYCERIDES 67 30 - 160 mg/dL [facility] LDL 70 50 - 129 mg/dL [facility] Comment: LDL levels in terms of risk for coronary heart disease: <100 mg/dL: Optimal 100-129 mg/dL: Near or above optimal 130-159 mg/dL: Borderline high 160-189 mg/dL: High >190 mg/dL: Very High CARDIAC RISK RATIO 1.7(L) 3.4 - 5.0 C [facility] Blood 03/23/2018 7:51 AM EDT 03/23/2018 7:58 AM EDT Ralf Landon DO LAB BLOOD ORDERABLES Final R esult Performing Organization Address [facility]/ZIP Co de Phone Number [address] [address] * (ABNORMAL) CBC and differential (03/23/2018 7:51 AM EDT) WBC 4.75 3.40 - 11.20 K/uL [facility] RBC 4.43(L) 4.50 - 5.50 M/uL [facility] HGB 14.9 13.0 - 17.0 g/dL [facility] HCT 40.4 40.0 - 51.0 % [facility] PLT 177 130 - 400 K/uL [facility] MCV 91.2 79.0 - 98.0 fL [facility] MCH 33.6 27.0 - 34.8 pg [facility] MCHC 36.9(H) 31.5 - 36.0 g/dL [facility] RDW 11.4 10.8 - 14.6 % [facility] MPV 10.3 9.4 - 12.4 fl [facility] NRBC 0.00 /100 WBCs [facility] ABSOLUTE NRBC 0.00 K/uL [facility] DIFF METHOD Auto [facility] NEUTS 50.2 45.30 - 77.70 % [facility] LYMPHS 39.2 12.30 - 39.70 % [facility] MONOS 6.9 4.10 - 12.80 % [facility] EOS 2.9 0 - 7.2 % [facility] BASOS 0.6 0 - 2.80 % [facility] Granulocytes, immature (%) 0.2 0.0 - 0.9 % [facility] ABSOLUTE NEUTS 2.38 1.40 - 7.70 K/uL [facility] ABSOLUTE LYMPHS 1.86 0.60 - 3.20 K/uL [facility] ABSOLUTE MONOS 0.33 0.11 - 0.59 K/uL [facility] ABSOLUTE EOS 0.14 0.01 - 0.50 K/uL [facility] ABSOLUTE BASOS 0.03 0.00 - 0.08 K/uL [facility] Granulocytes, immature 0.01 0.00 - 0.05 K/uL [facility] Blood 03/23/2018 7:51 AM EDT 03/23/2018 7:58 AM EDT Ralf Landon DO LAB BLOOD ORDERABLES Final R esult [facility] [address] [place] [address] documented in this encounter Visit Diagnoses Diagnosis [...] documented as of this encounter Care Teams Fire Captain Marine Relationship Specialty Start Date End Date Ralf Landon, [address] [place] [phone] PCP - General 11/16/17 documented as of this encounter Additional Source Comments The information contained in this document represents components of the legal health record. It is not the complete legal health record.[facility]
--- OUTSIDE RECORDS SUMMARY | 2025-08-18 14:20 | XMS_ITS | Encounter Summary ---
Author Organization [facility] Address [address] [facility] [address] [place] [phone] Phone Care Team Providers Care Primary Care Physician Name Role Phone BarbiRalf DO Primary Care Provider Encounter Details Date Type Department Care Team (Late st Contact Info) Description 12/18/2019 Transcribe Orders [facility] [address] [place] [address] Mellissa Stokes MD [address] [place] [address] [email or web address] Social History Tobacco Use Types Packs/Day Years [...] documented as of this encounter Care Teams Primary Care Physician Relationship Specialty Start Date End Date Ralf Landon DO [address] [place] [address] PCP - General 11/16/17 documented as of this encounter Additional Source Comments The information contained in this document represents components of the legal health record. It is not the complete legal health record.[facility]
--- OUTSIDE RECORDS SUMMARY | 2025-08-18 14:20 | XMS_ITS | Encounter Summary ---
Author Organization [facility] Address [address] [facility] [address] [place] [address] Phone Care Team Providers Care Bicycle Service Technician Name Role Phone Ralf Landon DO Primary Care Provider Encounter Details Date Type Department Care Team (Late st Contact Info) Description 10/31/2022 Procedure Pass [facility], Ct Scan - [address] [address] Social History Tobacco Use Types Packs/Day Years [...] on filedocumented in this encounter Care Teams Bicycle Service Technician Relationship Specialty Start Date End Date Ralf Landon DO [address] [place] [address] PCP - General 11/16/17 documented as of this encounter Additional Source Comments The information contained in this document represents components of the legal health record. It is not the complete legal health record.[facility]
--- OUTSIDE RECORDS SUMMARY | 2025-08-18 14:20 | XMS_ITS | Encounter Summary ---
Author Organization [facility] Address [address] [facility] [address] [place] [phone] Phone Care Team Providers Care Car Tracer Name Role Phone Ralf Landon DO Primary Care Provider Encounter Details Date Type Department Care Team (Late st Contact Info) Description 10/11/2023 Procedure Pass [place] Admitting Dept - Virtual Department [address] [place] [address] Social History Tobacco Use Types Packs/Day Years [...] 10/11/2023 12:23 PM Li Muse RN * [place] Suicide Severity Rating Scale (Screener/Recent Self-Report) Question [...] on filedocumented in this encounter Care Teams Car Tracer Relationship Specialty Start Date End Date Ralf Landon DO [address] [place] [phone] PCP - General 11/16/17 documented as of this encounter Additional Source Comments The information contained in this document represents components of the legal health record. It is not the complete legal health record.[facility]
--- OUTSIDE RECORDS SUMMARY | 2025-08-18 14:20 | XMS_ITS | Clinical Summary ---
Author Organization [facility] Address [address] [place] [address] Phone Care Team Providers Care Planner/Scheduler Name Role Phone Ralf Landon DO Primary [...] (09/28/2022 7:57 AM EST) HDL 127 mg/dL [facility] Comment: Interpretation <40 mg/dL: Low HDL cholesterol (major risk factor for CHD) Greater than or equal to 60 mg/dL: High HDL cholesterol ( negative risk factor for CHD) HDL - cholesterol is affected by a number of factors, e.g. smoking, excerise, hormones, sex and age. CHOLESTEROL 231 0 - 240 mg/dL [facility] TRIGLYCERIDES 53 30 - 160 mg/dL [facility] LDL 93 50 - 129 mg/dL [facility] Comment: LDL levels in terms of risk for coronary heart disease: <100 mg/dL: Optimal 100-129 mg/dL: Near or above optimal 130-159 mg/dL: Borderline high 160-189 mg/dL: High >190 mg/dL: Very High CARDIAC RISK RATIO 1.8(L) 3.4 - 5.0 C [facility] Blood 09/28/2022 7:57 AM EST 09/28/2022 8:01 AM EST us Ralf Landon DO LAB BLOOD ORDERABLES Final R esult Performing Organization Address City/State/[facility] Co de Phone Number [address] [address] from Last 3 Months or Most Recently Relevant to Health Maintenance Insurance MEDICARE PART A & B [place] MEDEX SUPPLEMENT MEDICARE PART A & B MEDEX SUPPLEMENT MEDICARE PART A & B MEDICARE PART A & B MEDICARE PART A & B [place] MEDEX SUPPLEMENT MEDICARE PART A & B MEDICARE PART A & B [place] MEDEX SUPPLEMENT MEDICARE PART A & B [place] CROSS MEDEX SUPPLEMENT MEDICARE PART A & B [place] MEDEX SUPPLEMENT Advance Directives For more information, please contact: [phone] (9AM - 5PM [place], Monday-Monday) Documents on File Type Date Recorded Patient Engraver Pantograph Expl anation Healthcare Proxy 10/16/2023 2:48 PM * Full Code (Latest Code Status on File) Date Activated Date Inactivated Comments 10/11/2023 12:16 PM Question Answer Comments Code Status Confirmed With: Patient Care Teams Planner/Scheduler Relationship Specialty Start Date End Date Ralf Landon DO [address] [place] [id number] PCP - General 11/16/17 Additional Source Comments The information contained in this document represents components of the legal health record. It is not the complete legal health record.[facility]
== END 2025-08-18 11:51 | disposition home or self-care (01) ==
LOC: HO.HMGAL 11:47
PROVIDERS: PCP Internal Medicine; Visit Provider Registered Nurse Emergency
DX: J30.89 Other allergic rhinitis (principal)
CPT/HCPCS: 95117; 95165

== ENCOUNTER 2025-09-08 08:57 | Outpatient (AMB) | payer MEDICARE, SELFPAY ==
[2025-09-08 09:01] VITALS: BP 118/70; PULSE 72; RESP 14; TEMP 36.8; O2SAT 99; BMI 21.9
--- NOTE | 2025-09-08 09:01 | MHC.PC.OV ---
Vital Signs 09/08/25 09:01 Height 5 ft 9 in Weight 148 lb BMI 21.9 BP 118/70 Respiration 14 Pulse 72 Pulse Source Pulse Oximeter Temp 98.2 F Temp Source Temporal Artery Scan Pulse Oximetry (%) 99 Oxygen Delivery Method Room Air Intake Visit Reasons: 6 month f/u General Assignment Reporter Required: No Accompanied by: Self / Same As Patient Allergies cephalexin Allergy (Unknown, Verified 09/08/25 09:02) fatigue,rash dust mites, pollen Allergy (Unknown, Uncoded 09/08/25 09:02) unknown Tobacco use date assessed: 09/08/25 [facility] Medical History Lipoma of abdominal wall Small intestinal bacterial overgrowth (SIBO) Enlarged prostate Surgical History History of colonoscopy (~01/19/18) S/P excision of lipoma (~12/16/24) History of cardiac cath Family History Mother COPD (chronic obstructive pulmonary disease) Heart problem Father Dementia Social History (Updated 09/08/25 @ 09:07 by ALAN Siegel) Household Members: Spouse Alcohol intake: current Alcohol intake frequency: a few times a week Patient Tobacco Use Status: Never used Tobacco Substance Use Type: Other service: No 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 1. Little interest or pleasure in doing things: not at all 2. Feeling down, depressed, or hopeless: not at all 3. Trouble falling or staying asleep, or sleeping too much: several days 4. Feeling tired or having little energy: several days 5. Poor appetite or overeating: not at all 6. Feeling bad about yourself - or that you are a failure or have let yourself or your family down: not at all 7. Trouble concentrating on things, such as reading the newspaper or watching television: not at all 8. Moving or speaking so slowly that other people could have noticed. Or the opposite - being so fidgety or restless that you have been moving around a lot more than usual: not at all 9. Thoughts that you would be better off or of hurting yourself in some way: not at all Total score: 2 Source: Developed by Drs. Ralf Newsome, Marilia Massey, Jonah Perez and colleagues, with an educational eddie from [email or web address]. Thrive Questionnaire Date Thrive assessed: 09/08/25 I am a: Patient What is your living situation today?: I have a steady place to live Within the past 12 months, did the food you bought not last and you didn't have the money to get more?: Never true Within the past 12 months, did you worry whether your food would run out before you got money to buy more?: Never true Do you have trouble paying for medicines?: No Do you have trouble getting transportation to medical appointments?: No Do you have trouble paying your heating and electricity bill?: No Do you have trouble taking care of your child, family member or friend?: No Do you have trouble with day-to-day activities such as bathing, preparing meals, shopping, managing finances, etc.?: No Are you currently unemployed and looking for a job?: No Are you interested in more education?: No Please select the resources that you would like help with: None THRIVE Score: 0 AUDIT C Alcohol Use Questionnaire (AUDIT-C) 1. How often do you have a drink containing alcohol?: 2-3 times a week 2. How many drinks containing alcohol do you have on a typical day when you are drinking?: 1 or 2 3. How often do you have six or more drinks on one occasion?: Never Total Score: 3 ELIAS-7 AMB Questionnaire ELIAS-7 Date ELIAS - 7 assessed: 09/08/25 Feeling nervous, anxious, or on edge: 0 = Not at all Not being able to stop or control worryin = Not at all Worrying too much about different things: 0 = Not at all Trouble relaxin = Not at all Being so restless that it is hard to sit still: 0 = Not at all Becoming easily annoyed or irritable: 0 = Not at all Feeling afraid as if something awful might happen: 0 = Not at all Total ELIAS-7 score (0-4 normal; 5-9 mild; 10-14 moderate; 15-21 severe): 0 Source: Developed by Drs. Ralf Newsome, Marilia Massey, Jonah Perez and colleagues, with an educational eddie from [email or web address]. Physical exam (Primary Care) Vital Signs: Last Vital Signs Temp 98.2 F 09/08/25 09:01 Pulse 72 09/08/25 09:01 Resp 14 09/08/25 09:01 BP 118/70 09/08/25 09:01 Pulse Ox 99 09/08/25 09:01 Oxygen Delivery Method Room Air 09/08/25 09:01 BMI result Body Mass Index 21.9 Tobacco/Smoking Status: Tobacco use Status Tobacco use date assessed 09/08/25 09/08/25 09:07 Patient Tobacco Use Status Never used Tobacco 09/08/25 09:07 PHQ-9: PHQ-9 Score PHQ-9: Total score 2 09/08/25 09:07 Thrive Assessment: Date of Thrive Assessment Date Thrive assessed 09/08/25 09/08/25 09:07 Office Procedures Flu Questionnaire Does the patient have a severe egg allergy?: No Does the patient have severe life threatening allergies?: No Does the patient have a fever or illness today?: No Has the patient ever had Guillain-Chesaning Syndrome?: No Has the patient ever had any past reaction to a flu shot?: No Immunizations Fluarix [id number] (PF) 45 mcg (15 mcg x 3)/0.5 mL IM syringe Performing Provider: Israel Gonzalez MD [facility] Documented (not given) by: ALAN Siegel on 09/08/25 09:08 Reason Not Given: Patient Refused Coding Level of Care Code Est Pt Level 4 (68899) Complex EM visit Add On G2211 Diagnoses Hemochromatosis E83.119 Assessment & Plan Assessment & Plan (1) Hemochromatosis: Code(s): E83.119 - Hemochromatosis, unspecified Category: Medical Plan: History of Present Illness - The patient is a 70-year-old male presenting for management of hemochromatosis and gastrointestinal symptoms, along with routine preventative care. - Hemochromatosis: Managed by a joint maker machine, with last blood draw in April. Current labs indicate no need for immediate phlebotomy. - Gastrointestinal symptoms: Experiences frequent burping and sleep disturbances if unable to burp after meals. Manages symptoms with nightly exercise and is on Motegrity and lorazetide. - Cyclic edema: Daily swelling in the right foot and ankle, resolving overnight. Considered venous in nature and not concerning. - Toenail fungus: Present in both big toes, complicating nail trimming. No treatment pursued due to potential liver toxicity of oral antifungals. - Arthritis: Present in fingers, with occasional soreness but no significant morning stiffness. - Preventative care: Colonoscopy last performed in January 2018, next due in 2027. Plans to receive flu and COVID-19 vaccinations, preferring high-dose flu vaccine. Social History - Exercise: Engages in regular walking and hiking, uses treadmill nightly for at least an hour to manage gastrointestinal symptoms. - Family: Youngest son is in the [place], currently deployed at sea. - Recent travel: Completed a motorhome trip across the country, visiting [place]. Review of Systems - Gastrointestinal: Reports frequent burping and sleep disturbances if unable to burp after meals. - Musculoskeletal: Reports arthritis in fingers with occasional soreness, denies significant morning stiffness. - Dermatological: Reports toenail fungus in both big toes. - Cardiovascular: Reports cyclic edema in the right foot and ankle, resolves overnight. - General: Denies significant morning stiffness, reports good overall quality of life. Physical Exam General: Cooperative and healthy appearing Nutritional Appearance: Well nourished Orientation/consciousness: Patient oriented x3 Limitations: No limitations Head: Normal to inspection General: Appearance normal, both eyes and all related structures Neck: Normal visual inspection Chest: Normal palpation of entire chest wall Respiratory: N ormal respiratory effort Neurology: Patient oriented x3, no significant concerns noted. Results - Labs: Recent blood tests from joint maker machine in June, no immediate need for phlebotomy. Plan - Hemochromatosis: Continue monitoring with joint maker machine, no immediate phlebotomy required based on recent labs. - Gastrointestinal symptoms: Continue current regimen of Motegrity and lorazetide, maintain nightly exercise routine to manage symptoms. - Cyclic edema: No specific treatment required, continue monitoring. - Toenail fungus: No treatment pursued due to potential liver toxicity of oral antifungals, continue aggressive nail clipping. - Preventative care: Plan to receive flu and COVID-19 vaccinations, with preference for high-dose flu vaccine. Discussion Notes I discussed with the patient the management of his hemochromatosis, confirming that no immediate phlebotomy is required based on recent lab results. We reviewed his gastrointestinal symptoms and the current treatment plan, emphasizing the importance of maintaining his exercise routine. I advised him on the nature of his cyclic edema and reassured him that no specific treatment is necessary at this time. We also discussed the toenail fungus, and I explained the potential liver toxicity of oral antifungal treatments, recommending continued aggressive nail clipping instead. For preventative care, I recommended receiving the flu and COVID-19 vaccinations, with a preference for the high-dose flu vaccine. Patient Instructions - Continue monitoring hemochromatosis with your joint maker machine. - Maintain your current exercise routine to help manage gastrointestinal symptoms. - Monitor the swelling in your right foot and ankle, and report any changes. - Continue aggressive nail clipping for toenail fungus. - Plan to receive your flu and COVID-19 vaccinations, opting for the high-dose flu vaccine if possible. Orders: Orders Influenza [id number] Immunization Today Z23 - Encounter for immunization
== END 2025-09-08 09:32 | disposition home or self-care (01) ==
LOC: HO.HMCSH 08:57
PROVIDERS: PCP Internal Medicine; Visit Provider Internal Medicine
DX: Z23 Encounter for immunization (principal); E83.119 Hemochromatosis, unspecified

== ENCOUNTER 2025-09-08 11:00 | Outpatient (REF) | payer MEDICARE, SELFPAY ==
[2025-09-08 11:14] LABS: MANUAL DIFF FLAG NO
[2025-09-08 11:16] LABS: Hematocrit 41.1 % (42.0-52.0); Hemoglobin 14.5 g/dl (14.0-18.0); Imm Gran Abs Auto 0.04 X10*3/uL (0.00-0.03); Imm Gran Pct Auto 0.4 % (0.0-0.4); Lymphocytes Absolute Auto 1.0 X10*3/uL (1.2-4.9); Mean Corpuscular HGB Conc 35.3 g/dl (31.0-36.0); Mean Corpuscular Hemoglobin 30.6 pg (27.0-33.0); Mean Corpuscular Volume 86.7 fL (80.0-98.0); NRBC Abs Auto 0.000 X10*3/uL (0.0-0.012); NRBC Pct Auto 0.0 /100WBC (0.0-0.2); Platelet Count 192 X10*3/uL (160-400); Red Blood Count 4.74 X10*6/uL (4.60-5.80); White Blood Count 10.1 X10*3/uL (4.8-10.8)
[2025-09-08 12:05] LABS: Iron 113 mcg/dL (45-160); Percent Iron Saturation 42 % (15-50); Total Iron Binding Capacity 268 mcg/dL (228-428); Unsaturated Iron Binding 155 ug/dL
[2025-09-08 12:22] LABS: Ferritin 18 ng/mL (20-250)
--- OUTSIDE RECORDS SUMMARY | 2025-09-08 13:47 | XMS_ITS | Encounter Summary ---
Author Organization [facility] Address [address] [place] [address] Phone Care Team Providers Care Sales Representative Leather [employer]s Name Role Phone Ralf Landon DO Primary Care Provider [phone] Encounter Details Date Type Department Care Team (Latest Contact Info) Description 04/11/2019 Transcribe Orders [facility] [address] [place] [address] Ralf Landon DO [address] [place] [id number] Routine general medical examination at a health [...] AM EDT) WBC 0-4(A) NONE SEEN /hpf [facility] RBC 0-2(A) NONE SEEN /hpf [facility] URINE EPITHELIAL 0-4(A) NONE SEEN [facility] MUCUS NONE SEEN NONE SEEN /hpf [facility] BACTERIA Trace(A) NONE SEEN [facility] COLOR Yellow Yellow [facility] CLARITY Clear [facility] GLUCOSE Negative Negative [facility] BILI Negative Negative [facility] KETONES Negative Negative [facility] SPECIFIC GRAVITY <1.005 1.005 - 1.030 [facility] BLOOD 1+(A) Negative [facility] PH 7.0 5.0 - 8.0 [facility] Protein-UA Negative Negative [facility] NITRITE Negative Negative [facility] Leukocyte esterase, ur Negative Negative [facility] Urine (Urine) 04/11/2019 8:0 0 AM EDT 04/11/2019 8:22 AM EDT Ralf Landon DO URINE ORDERABLES Final Resul t Performing Organization Address [facility] Co de Phone Number [address] [address] * PSA (screening) (04/11/2019 8:00 AM EDT) PSA 0.83 0 - 4.00 ng/mL [facility] Blood 04/11/2019 8:00 AM EDT 04/11/2019 8:23 AM EDT Ralf Landon DO LAB BLOOD ORDERABLES Final R esult Performing Organization Address [facility] Co de Phone Number [address] [address] * Comprehensive metabolic panel (04/11/2019 8:00 AM EDT) SODIUM 135 133 - 146 mmol/L [facility] POTASSIUM 4.5 3.3 - 5.1 mmol/L [facility] CHLORIDE 98 96 - 108 mmol/L [facility] CO2 27 21 - 35 mmol/L [facility] BUN 11 6 - 19 mg/dL [facility] CREATININE 1.00 0.5 - 1.5 mg/dL [facility] GLUCOSE 83 70 - 99 mg/dL [facility] ALBUMIN 4.0 3.9 - 4.8 g/dL [facility] TOTAL PROTEIN 6.7 6.5 - 8.0 g/dL [facility] CALCIUM 9.5 8.4 - 10.3 mg/dL [facility] ALKALINE PHOSPHATASE 60 39 - 117 U/L [facility] TOTAL BILIRUBIN 0.8 0.0 - 1.2 mg/dL [facility] AST 31 0 - 37 U/L [facility] ALT 19 0 - 40 U/L [facility] GLOBULIN 2.7 1 - 4.8 g/dL [facility] EGFR 80 >59 mL/min/1.7 3m2 [facility] Comment:If patient is black, multiply result by 1.159. Estimated glomerular filtration rate calculated using the CKD-EPI equation. ANION GAP 15 10 - 20 mmol/L [facility] Blood 04/11/2019 8:00 AM EDT 04/11/2019 8:23 AM EDT us Ralf Landon DO LAB BLOOD ORDERABLES Final R esult [address] [address] * (ABNORMAL) Lipid panel (04/11/2019 8:00 AM EDT) HDL 124 mg/dL [facility] Comment: Interpretation <40 mg/dL: Low HDL cholesterol (major risk factor for CHD) Greater than or equal to 60 mg/dL: High HDL cholesterol ( negative risk factor for CHD) HDL - cholesterol is affected by a number of factors, e.g. smoking, excerise, hormones, sex and age. CHOLESTEROL 215 0 - 240 mg/dL [facility] TRIGLYCERIDES 50 30 - 160 mg/dL [facility] LDL 81 50 - 129 mg/dL [facility] Comment: LDL levels in terms of risk for coronary heart disease: <100 mg/dL: Optimal 100-129 mg/dL: Near or above optimal 130-159 mg/dL: Borderline high 160-189 mg/dL: High >190 mg/dL: Very High CARDIAC RISK RATIO 1.7(L) 3.4 - 5.0 C [facility] Blood 04/11/2019 8:00 AM EDT 04/11/2019 8:23 AM EDT us Ralf Landon DO LAB BLOOD ORDERABLES Final R esult [facility] [address] [place], [place] [id number] * (ABNORMAL) CBC and differential (04/11/2019 8:00 AM EDT) WBC 5.13 3.40 - 11.20 K/uL [facility] RBC 4.34(L) 4.50 - 5.50 M/uL [facility] HGB 14.6 13.0 - 17.0 g/dL [facility] HCT 40.8 40.0 - 51.0 % [facility] PLT 175 130 - 400 K/uL [facility] MCV 94.0 79.0 - 98.0 fL [facility] MCH 33.6 27.0 - 34.8 pg [facility] MCHC 35.8 31.5 - 36.0 g/dL [facility] RDW 11.6 10.8 - 14.6 % [facility] MPV 10.2 9.4 - 12.4 fl [facility] NRBC 0.00 0.00 /100 WBCs [facility] ABSOLUTE NRBC 0.00 0.00 K/uL [facility] DIFF METHOD Auto [facility] NEUTS 53.6 45.30 - 77.70 % [facility] LYMPHS 35.5 12.30 - 39.70 % [facility] MONOS 7.4 4.10 - 12.80 % [facility] EOS 2.5 0 - 7.2 % [facility] BASOS 0.8 0 - 2.80 % [facility] Granulocytes, immature (%) 0.2 0.0 - 0.9 % [facility] ABSOLUTE NEUTS 2.75 1.40 - 7.70 K/uL [facility] ABSOLUTE LYMPHS 1.82 0.60 - 3.20 K/uL [facility] ABSOLUTE MONOS 0.38 0.11 - 0.59 K/uL [facility] ABSOLUTE EOS 0.13 0.01 - 0.50 K/uL [facility] ABSOLUTE BASOS 0.04 0.00 - 0.08 K/uL [facility] Granulocytes, immature 0.01 0.00 - 0.05 K/uL [facility] Blood 04/11/2019 8:00 AM EDT 04/11/2019 8:23 AM EDT Ralf Landon DO LAB BLOOD ORDERABLES Final R esult [facility] [address] [place] [address] documented in this encounter Visit Diagnoses Diagnosis [...] documented as of this encounter Care Teams Sales Representative Leather Goods Relationship Specialty Start Date End Date Ralf Landon, [address] [place] [phone] PCP - General 11/16/17 documented as of this encounter Additional Source Comments The information contained in this document represents components of the legal health record. It is not the complete legal health record.[facility]
--- OUTSIDE RECORDS SUMMARY | 2025-09-08 13:47 | XMS_ITS | Encounter Summary ---
Author Organization [facility] Address [address] [facility] [address] [place] [address] Phone Care Team Providers Care Maintenance Superintendent Name Role Phone Ralf Landon DO Primary Care Provider [phone] Encounter Details Date Type Department Care Team (Latest Contact Info) Description 03/23/2018 Transcribe Orders [facility] [address] [place] [address] Ralf Landon DO [address] [place] [address] Routine general medical examination at a health [...] HOSPITAL SPECIFIC GRAVITY <1.005 1.005 - 1.030 [facility] BLOOD 1+(A) Negative [facility] PH 7.0 5.0 - 8.0 [facility] Protein-UA Negative Negative [facility] NITRITE Negative Negative [facility] Leukocyte esterase, ur Negative Negative [facility] Urine (Urine) 03/23/2018 7:5 1 AM EDT 03/23/2018 7:58 AM EDT Ralf Landon DO URINE ORDERABLES Final Resul t Performing Organization Address [facility] Co de Phone Number [address] [address] * PSA (screening) (03/23/2018 7:51 AM EDT) PSA 1.06 0 - 4.00 ng/mL [facility] Blood 03/23/2018 7:51 AM EDT 03/23/2018 8:01 AM EDT Ralf Landon DO LAB BLOOD ORDERABLES Final R esult Performing Organization Address City/[facility] Co de Phone Number [address] [address] * Comprehensive metabolic panel (03/23/2018 7:51 AM EDT) SODIUM 137 133 - 146 mmol/L [facility] POTASSIUM 4.6 3.3 - 5.1 mmol/L [facility] CHLORIDE 98 96 - 108 mmol/L [facility] CO2 27 21 - 35 mmol/L [facility] BUN 16 6 - 19 mg/dL [facility] CREATININE 1.10 0.5 - 1.5 mg/dL [facility] GLUCOSE 85 70 - 99 mg/dL [facility] ALBUMIN 4.1 3.9 - 4.8 g/dL [facility] TOTAL PROTEIN 6.8 6.5 - 8.0 g/dL [facility] CALCIUM 9.2 8.4 - 10.3 mg/dL [facility] ALKALINE PHOSPHATASE 57 39 - 117 U/L [facility] TOTAL BILIRUBIN 0.8 0.0 - 1.2 mg/dL [facility] AST 30 0 - 37 U/L [facility] ALT 18 0 - 40 U/L [facility] GLOBULIN 2.7 1 - 4.8 g/dL [facility] EGFR 72 >59 mL/min/1.7 3m2 [facility] Comment:If patient is black, multiply result by 1.159. The eGFR calculation has changed from the MDRD equation to the CKD-EPI equation as of January 16, 2018. ANION GAP 17 10 - 20 mmol/L [facility] Blood 03/23/2018 7:51 AM EDT 03/23/2018 7:58 AM EDT us Ralf Landon DO LAB BLOOD ORDERABLES Final R esult Performing Organization Address [facility]/ZIP Co de Phone Number [address] [address] * (ABNORMAL) Lipid panel (03/23/2018 7:51 AM EDT) HDL 117 mg/dL [facility] Comment: Interpretation: Risk Level Males Decreased >45 mg/dL Average 40-45 mg/dL Increased <40 mg/dL CHOLESTEROL 200 0 - 240 mg/dL [facility] TRIGLYCERIDES 67 30 - 160 mg/dL [facility] LDL 70 50 - 129 mg/dL [facility] Comment: LDL levels in terms of risk for coronary heart disease: <100 mg/dL: Optimal 100-129 mg/dL: Near or above optimal 130-159 mg/dL: Borderline high 160-189 mg/dL: High >190 mg/dL: Very High CARDIAC RISK RATIO 1.7(L) 3.4 - 5.0 C [facility] Blood 03/23/2018 7:51 AM EDT 03/23/2018 7:58 AM EDT Ralf Landon DO LAB BLOOD ORDERABLES Final R esult Performing Organization Address [facility]/ZIP Co de Phone Number [address] [address] * (ABNORMAL) CBC and differential (03/23/2018 7:51 AM EDT) WBC 4.75 3.40 - 11.20 K/uL [facility] RBC 4.43(L) 4.50 - 5.50 M/uL [facility] HGB 14.9 13.0 - 17.0 g/dL [facility] HCT 40.4 40.0 - 51.0 % [facility] PLT 177 130 - 400 K/uL [facility] MCV 91.2 79.0 - 98.0 fL [facility] MCH 33.6 27.0 - 34.8 pg [facility] MCHC 36.9(H) 31.5 - 36.0 g/dL [facility] RDW 11.4 10.8 - 14.6 % [facility] MPV 10.3 9.4 - 12.4 fl [facility] NRBC 0.00 /100 WBCs [facility] ABSOLUTE NRBC 0.00 K/uL [facility] DIFF METHOD Auto [facility] NEUTS 50.2 45.30 - 77.70 % [facility] LYMPHS 39.2 12.30 - 39.70 % [facility] MONOS 6.9 4.10 - 12.80 % [facility] EOS 2.9 0 - 7.2 % [facility] BASOS 0.6 0 - 2.80 % [facility] Granulocytes, immature (%) 0.2 0.0 - 0.9 % [facility] ABSOLUTE NEUTS 2.38 1.40 - 7.70 K/uL [facility] ABSOLUTE LYMPHS 1.86 0.60 - 3.20 K/uL [facility] ABSOLUTE MONOS 0.33 0.11 - 0.59 K/uL [facility] ABSOLUTE EOS 0.14 0.01 - 0.50 K/uL [facility] ABSOLUTE BASOS 0.03 0.00 - 0.08 K/uL [facility] Granulocytes, immature 0.01 0.00 - 0.05 K/uL [facility] Blood 03/23/2018 7:51 AM EDT 03/23/2018 7:58 AM EDT Ralf Landon DO LAB BLOOD ORDERABLES Final R esult [facility] [address] [place] [address] documented in this encounter Visit Diagnoses Diagnosis [...] AM E ST CoV-Risk 12/27/2020 12/27/2020 01/06/2021 1:2 3 AM EST [facility] Comment:Recent close contact documented in the COVID-19 PCR/PRO order 01/13/2021 01/13/2021 01/28/2021 1:23 AM E DT documented as of this encounter Care Teams Maintenance Superintendent Relationship Specialty Start Date End Date Ralf Landon, [address] [place] [address] PCP - General 11/16/17 documented as of this encounter Additional Source Comments The information contained in this document represents components of the legal health record. It is not the complete legal health record.[facility]
--- OUTSIDE RECORDS SUMMARY | 2025-09-08 13:48 | XMS_ITS | Clinical Summary ---
Author Organization [facility] Address [address] [facility] [address] [place] [address] Phone Care Team Providers Care Chain Person Name Role Phone Ralf Landon DO Primary [...] (09/28/2022 7:57 AM EST) HDL 127 mg/dL [facility] Comment: Interpretation <40 mg/dL: Low HDL cholesterol (major risk factor for CHD) Greater than or equal to 60 mg/dL: High HDL cholesterol ( negative risk factor for CHD) HDL - cholesterol is affected by a number of factors, e.g. smoking, excerise, hormones, sex and age. CHOLESTEROL 231 0 - 240 mg/dL [facility] TRIGLYCERIDES 53 30 - 160 mg/dL [facility] LDL 93 50 - 129 mg/dL [facility] Comment: LDL levels in terms of risk for coronary heart disease: <100 mg/dL: Optimal 100-129 mg/dL: Near or above optimal 130-159 mg/dL: Borderline high 160-189 mg/dL: High >190 mg/dL: Very High CARDIAC RISK RATIO 1.8(L) 3.4 - 5.0 C [facility] Blood 09/28/2022 7:57 AM EST 09/28/2022 8:01 AM EST us Ralf Landon DO LAB BLOOD ORDERABLES Final R esult Performing Organization Address City/State/[facility] Co de Phone Number [address] [address] from Last 3 Months or Most Recently Relevant to Health Maintenance Insurance MEDICARE PART A & B [place] MED[employer] SUPPLEMENT MEDICARE PART A & B MEDEX SUPPLEMENT MEDICARE PART A & B MEDICARE PART A & B MEDICARE PART A & B [employer] [place] [employer] SUPPLEMENT MEDICARE PART A & B MEDICARE PART A & B [place] [place] MEDEX SUPPLEMENT MEDICARE PART A & B Location Labs [place]OSS MEDEX SUPPLEMENT MEDICARE PART A & B VOZ MEDEX SUPPLEMENT Advance Directives For more information, please contact: [phone] (9AM - 5PM [place]/[facility], Monday-Monday) Documents on File Type Date Recorded Patient Press Assistant And Feeder Expl anation Healthcare Proxy 10/16/2023 2:48 PM * Full Code (Latest Code Status on File) Date Activated Date Inactivated Comments 10/11/2023 12:16 PM Question Answer Comments Code Status Confirmed With: Patient Care Teams Chain Person Relationship Specialty Start Date End Date Ralf Landon DO [address] [place] [address] PCP - General 11/16/17 Additional Source Comments The information contained in this document represents components of the legal health record. It is not the complete legal health record.[facility]
--- OUTSIDE RECORDS SUMMARY | 2025-09-08 13:48 | XMS_ITS | Encounter Summary ---
Author Organization [facility] Address [address] [facility] [address] [place] [address] Phone Care Team Providers Care Modeling Manager Name Role Phone Ralf Landon DO Primary Care Provider Encounter Details Date Type Department Care Team (Late st Contact Info) Description 10/31/2022 Procedure Pass [facility], Ct Scan - [address] [address] Social History Tobacco Use Types Packs/Day Years [...] on filedocumented in this encounter Care Teams Modeling Manager Relationship Specialty Start Date End Date Ralf Landon DO [address] [place] [address] PCP - General 11/16/17 documented as of this encounter Additional Source Comments The information contained in this document represents components of the legal health record. It is not the complete legal health record.[facility]
--- OUTSIDE RECORDS SUMMARY | 2025-09-08 13:48 | XMS_ITS | Encounter Summary ---
Author Organization [facility] Address [address] [facility] [address] [place] [address] Phone Care Team Providers Care Vein Access Technician Name Role Phone Ralf Landon DO Primary Care Provider Encounter Details Date Type Department Care Team (Late st Contact Info) Description 10/11/2023 Procedure Pass [place] Admitting Dept - Virtual Department [address] [place] [address] Social History Tobacco Use Types Packs/Day Years [...] 10/11/2023 12:23 PM Li Muse RN * [place] Suicide Severity Rating Scale (Screener/Recent Self-Report) Question [...] on filedocumented in this encounter Care Teams Vein Access Technician Relationship Specialty Start Date End Date Ralf Landon DO [address] [place] [address] PCP - General 11/16/17 documented as of this encounter Additional Source Comments The information contained in this document represents components of the legal health record. It is not the complete legal health record.[facility]
--- OUTSIDE RECORDS SUMMARY | 2025-09-08 13:48 | XMS_ITS | Encounter Summary ---
Author Organization [facility] Address [address] [facility] [address] [place] [address] Phone Care Team Providers Care Applications Support Specialist Name Role Phone BarbiRalf DO Primary Care Provider Encounter Details Date Type Department Care Team (Late st Contact Info) Description 12/18/2019 Transcribe Orders [facility] Specimen Processing [address] [place] [address] Mellissa Stokes MD [address] [place] [address] [email or web address] Social History Tobacco Use Types Packs/Day Years [...] documented as of this encounter Care Teams Applications Support Specialist Relationship Specialty Start Date End Date Ralf Landon DO [address] [place] [address] PCP - General 11/16/17 documented as of this encounter Additional Source Comments The information contained in this document represents components of the legal health record. It is not the complete legal health record.[facility]
== END 2025-09-08 11:01 | disposition home or self-care (01) ==
LOC: HO.BBR 11:00
PROVIDERS: PCP Internal Medicine; Visit Provider Internal Medicine Medical Oncology
DX: E83.110 Hereditary hemochromatosis (principal); Z23 Encounter for immunization
CPT/HCPCS: 36415; 82728; 83540; 85025; 90471; 99212

== ENCOUNTER 2025-09-08 11:25 | Outpatient (AMB) | payer MEDICARE, SELFPAY | END 2025-09-08 11:26 | disposition home or self-care (01) | LOC: HO.HMGAL 11:25 | PROVIDERS: PCP Internal Medicine; Visit Provider Registered Nurse Emergency | DX: J30.89 Other allergic rhinitis (principal) | CPT/HCPCS: 95117; 95165 ==

== ENCOUNTER 2025-09-29 10:29 | Outpatient (AMB) | payer MEDICARE, SELFPAY | END 2025-09-29 10:30 | disposition home or self-care (01) | LOC: HO.HMGAL 10:29 | PROVIDERS: PCP Internal Medicine; Visit Provider Registered Nurse Emergency | DX: J30.89 Other allergic rhinitis (principal) | CPT/HCPCS: 95117; 95165 ==

== ENCOUNTER 2025-10-20 11:13 | Outpatient (AMB) | payer MEDICARE, SELFPAY | END 2025-10-20 11:13 | disposition home or self-care (01) | LOC: HO.HMGAL 11:13 | PROVIDERS: PCP Internal Medicine; Visit Provider Registered Nurse Emergency | DX: J30.89 Other allergic rhinitis (principal) | CPT/HCPCS: 95117; 95165 ==

== ENCOUNTER 2025-11-12 10:24 | Outpatient (AMB) | payer MEDICARE, SELFPAY ==
--- OUTSIDE RECORDS SUMMARY | 2025-11-12 11:36 | XMS_ITS | Encounter Summary ---
Author Organization [facility] Address [address] [facility] [address] [place] [address] Phone Care Team Providers Care Clinical Documentation Specialist Name Role Phone BarbiRalf DO Primary Care Provider Encounter Details Date Type Department Care Team (Late st Contact Info) Description 12/18/2019 Transcribe Orders [facility] Specimen Processing [address] [place] [address] Mellissa Stokes MD [address] [place] [address] [email or web address] Social History Tobacco Use Types Packs/Day Years [...] documented as of this encounter Care Teams Clinical Documentation Specialist Relationship Specialty Start Date End Date Ralf Landon DO [address] [place] [address] PCP - General 11/16/17 documented as of this encounter Additional Source Comments The information contained in this document represents components of the legal health record. It is not the complete legal health record.[facility]
--- OUTSIDE RECORDS SUMMARY | 2025-11-12 11:36 | XMS_ITS | Clinical Summary ---
Author Organization [facility] Address [address] [facility] [address] [place] [address] Phone Care Team Providers Care Food Service Ambassador Name Role Phone Ralf Landon DO Primary [...] (09/28/2022 7:57 AM EST) HDL 127 mg/dL [facility] Comment: Interpretation <40 mg/dL: Low HDL cholesterol (major risk factor for CHD) Greater than or equal to 60 mg/dL: High HDL cholesterol ( negative risk factor for CHD) HDL - cholesterol is affected by a number of factors, e.g. smoking, excerise, hormones, sex and age. CHOLESTEROL 231 0 - 240 mg/dL [facility] TRIGLYCERIDES 53 30 - 160 mg/dL [facility] LDL 93 50 - 129 mg/dL [facility] Comment: LDL levels in terms of risk for coronary heart disease: <100 mg/dL: Optimal 100-129 mg/dL: Near or above optimal 130-159 mg/dL: Borderline high 160-189 mg/dL: High >190 mg/dL: Very High CARDIAC RISK RATIO 1.8(L) 3.4 - 5.0 C [facility] Blood 09/28/2022 7:57 AM EST 09/28/2022 8:01 AM EST us Ralf Landon DO LAB BLOOD BKR ORDERABLES Fin al Result [address] [address] from Last 3 Months or Most Recently Relevant to Health Maintenance Insurance MEDICARE PART A & B [facility] MEDEX SUPPLEMENT MEDICARE PART A & B MEDEX SUPPLEMENT MEDICARE PART A & B MEDICARE PART A & B MEDICARE PART A & B [place] [place] MEDEX SUPPLEMENT MEDICARE PART A & B MEDICARE PART A & B [employer]UE [employer] MEDEX SUPPLEMENT MEDICARE PART A & B [employer] [place] MEDEX SUPPLEMENT MEDICARE PART A & B [facility] MEDEX SUPPLEMENT Advance Directives For more information, please contact: [phone] (9AM - 5PM [place]/[facility], Monday-Monday) Documents on File Type Date Recorded 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 It is not the complete legal health record.[facility]
--- OUTSIDE RECORDS SUMMARY | 2025-11-12 11:36 | XMS_ITS | Encounter Summary ---
Author Organization [facility] Address [address] [facility] [address] [place] [address] Phone Care Team Providers Care Railroad Conductor Name Role Phone Ralf Landon DO Primary Care Provider Encounter Details Date Type Department Care Team (Late st Contact Info) Description 10/11/2023 Procedure Pass [place] Admitting Dept - Virtual Department [address] [place] [address] Social History Tobacco Use Types Packs/Day Years [...] on filedocumented in this encounter Care Teams Railroad Conductor Relationship Specialty Start Date End Date Ralf Landon DO [address] [place] [address] PCP - General 11/16/17 documented as of this encounter Additional Source Comments The information contained in this document represents components of the legal health record. It is not the complete legal health record.[facility]
--- OUTSIDE RECORDS SUMMARY | 2025-11-12 11:36 | XMS_ITS | Encounter Summary ---
Author Organization [facility] Address [address] [facility] [address] [place] [address] Phone Care Team Providers Care Orchestra Leader Name Role Phone Ralf Landon DO Primary Care Provider Encounter Details Date Type Department Care Team (Latest Contact Info) Description 03/23/2018 Transcribe Orders [facility] Phleb [address] [address] Ralf Landon DO [address] [place] [address] Routine general medical examination at a health [...] RBC 3-5(A) NONE SEEN /hpf [facility] URINE EPITHELIAL 0-4(A) NONE SEEN [facility] MUCUS Trace(A) NONE SEEN /hpf [facility] BACTERIA Trace(A) NONE SEEN [facility] COLOR Yellow Yellow [facility] CLARITY Clear [facility] GLUCOSE Negative Negative [facility] BILI Negative Negative [facility] KETONES Negative Negative [facility] SPECIFIC GRAVITY <1.005 1.005 - 1.030 [facility] BLOOD 1+(A) Negative [facility] PH 7.0 5.0 - 8.0 [facility] Protein-UA Negative Negative [facility] NITRITE Negative Negative [facility] Leukocyte esterase, ur Negative Negative [facility] Urine (Urine) 03/23/2018 7:5 1 AM EDT 03/23/2018 7:58 AM EDT Ralf Landon LAB URINE ORDERABLES Final R esult [address] [address] * PSA (screening) (03/23/2018 7:51 AM EDT) PSA 1.06 0 - 4.00 ng/mL [facility] Blood 03/23/2018 7:51 AM EDT 03/23/2018 8:01 AM EDT Ralf Landon LAB BLOOD BKR ORDERABLES Fin al Result Performing Organization Address City/[facility]/ZIP Co de Phone Number [address] [address] * Comprehensive metabolic panel (03/23/2018 7:51 AM EDT) SODIUM 137 133 - 146 mmol/L [facility] POTASSIUM 4.6 3.3 - 5.1 mmol/L [facility] CHLORIDE 98 96 - 108 mmol/L [facility] CO2 27 21 - 35 mmol/L [facility] BUN 16 6 - 19 mg/dL [facility] CREATININE 1.10 0.5 - 1.5 mg/dL [facility] GLUCOSE 85 70 - 99 mg/dL [facility] ALBUMIN 4.1 3.9 - 4.8 g/dL [facility] TOTAL PROTEIN 6.8 6.5 - 8.0 g/dL [facility] CALCIUM 9.2 8.4 - 10.3 mg/dL [facility] ALKALINE PHOSPHATASE 57 39 - 117 U/L [facility] TOTAL BILIRUBIN 0.8 0.0 - 1.2 mg/dL [facility] AST 30 0 - 37 U/L [facility] ALT 18 0 - 40 U/L [facility] GLOBULIN 2.7 1 - 4.8 g/dL [facility] EGFR 72 >59 mL/min/1.7 3m2 [facility] Comment:If patient is black, multiply result by 1.159. The eGFR calculation has changed from the MDRD equation to the CKD-EPI equation as of January 16, 2018. ANION GAP 17 10 - 20 mmol/L [facility] Blood 03/23/2018 7:51 AM EDT 03/23/2018 7:58 AM EDT us Ralf Landon LAB BLOOD BKR ORDERABLES Fin al Result Performing Organization Address [facility] Co de Phone Number [address] [address] * (ABNORMAL) Lipid panel (03/23/2018 7:51 AM EDT) HDL 117 mg/dL [facility] Comment: Interpretation: Risk Level Males Decreased >45 mg/dL Average 40-45 mg/dL Increased <40 mg/dL CHOLESTEROL 200 0 - 240 mg/dL [facility] TRIGLYCERIDES 67 30 - 160 mg/dL [facility] LDL 70 50 - 129 mg/dL [facility] Comment: LDL levels in terms of risk for coronary heart disease: <100 mg/dL: Optimal 100-129 mg/dL: Near or above optimal 130-159 mg/dL: Borderline high 160-189 mg/dL: High >190 mg/dL: Very High CARDIAC RISK RATIO 1.7(L) 3.4 - 5.0 C [facility] Blood 03/23/2018 7:51 AM EDT 03/23/2018 7:58 AM EDT Ralf Landon LAB BLOOD BKR ORDERABLES Fin al Result Performing Organization Address [facility] Co de Phone Number [address] [address] * (ABNORMAL) CBC and differential (03/23/2018 7:51 AM EDT) WBC 4.75 3.40 - 11.20 K/uL [facility] RBC 4.43(L) 4.50 - 5.50 M/uL [facility] HGB 14.9 13.0 - 17.0 g/dL [facility] HCT 40.4 40.0 - 51.0 % [facility] PLT 177 130 - 400 K/uL [facility] MCV 91.2 79.0 - 98.0 fL [facility] MCH 33.6 27.0 - 34.8 pg [facility] MCHC 36.9(H) 31.5 - 36.0 g/dL [facility] RDW 11.4 10.8 - 14.6 % [facility] MPV 10.3 9.4 - 12.4 fl [facility] NRBC 0.00 /100 WBCs [facility] ABSOLUTE NRBC 0.00 K/uL [facility] DIFF METHOD Auto [facility] NEUTS 50.2 45.30 - 77.70 % [facility] LYMPHS 39.2 12.30 - 39.70 % [facility] MONOS 6.9 4.10 - 12.80 % [facility] EOS 2.9 0 - 7.2 % [facility] BASOS 0.6 0 - 2.80 % [facility] Granulocytes, immature (%) 0.2 0.0 - 0.9 % [facility] ABSOLUTE NEUTS 2.38 1.40 - 7.70 K/uL [facility] ABSOLUTE LYMPHS 1.86 0.60 - 3.20 K/uL [facility] ABSOLUTE MONOS 0.33 0.11 - 0.59 K/uL [facility] ABSOLUTE EOS 0.14 0.01 - 0.50 K/uL [facility] ABSOLUTE BASOS 0.03 0.00 - 0.08 K/uL [facility] Granulocytes, immature 0.01 0.00 - 0.05 K/uL [facility] Blood 03/23/2018 7:51 AM EDT 03/23/2018 7:58 AM EDT us Ralf Landon DO LAB BLOOD BKR ORDERABLES Fin al Result [facility] [address] [place] [address] documented in this encounter Visit Diagnoses Diagnosis [...] documented as of this encounter Care Teams Orchestra Leader Relationship Specialty Start Date End Date Ralf Landon, [address] [place] [address] PCP - General 11/16/17 documented as of this encounter Additional Source Comments The information contained in this document represents components of the legal health record. It is not the complete legal health record.[facility]
--- OUTSIDE RECORDS SUMMARY | 2025-11-12 11:36 | XMS_ITS | Encounter Summary ---
Author Organization [facility] Address [address] [facility] [address] [place] [address] Phone Care Team Providers Care Weight Trainer Name Role Phone Ralf Landon DO Primary Care Provider Encounter Details Date Type Department Care Team (Late st Contact Info) Description 10/31/2022 Procedure Pass [facility], Ct Scan - [address] [address] Social History Tobacco Use Types Packs/Day Years [...] on filedocumented in this encounter Care Teams Weight Trainer Relationship Specialty Start Date End Date Ralf Landon DO [address] [place] [address] PCP - General 11/16/17 documented as of this encounter Additional Source Comments The information contained in this document represents components of the legal health record. It is not the complete legal health record.[facility]
--- OUTSIDE RECORDS SUMMARY | 2025-11-12 11:36 | XMS_ITS | Encounter Summary ---
Author Organization [facility] Address [address] [place] [address] Phone Care Team Providers Care Child Support Specialist Name Role Phone Ralf Landon DO Primary Care Provider [phone] Encounter Details Date Type Department Care Team (Latest Contact Info) Description 04/11/2019 Transcribe Orders [address] [id number] Ralf Landon DO [address] [place] [phone] Routine general medical examination at a health [...] AM EDT) WBC 0-4(A) NONE SEEN /hpf [facility] RBC 0-2(A) NONE SEEN /hpf [facility] URINE EPITHELIAL 0-4(A) NONE SEEN [facility] MUCUS NONE SEEN NONE SEEN /hpf [facility] BACTERIA Trace(A) NONE SEEN [facility] COLOR Yellow Yellow [facility] CLARITY Clear [facility] GLUCOSE Negative Negative [facility] BILI Negative Negative [facility] KETONES Negative Negative [facility] SPECIFIC GRAVITY <1.005 1.005 - 1.030 [facility] BLOOD 1+(A) Negative [facility] PH 7.0 5.0 - 8.0 [facility] Protein-UA Negative Negative [facility] NITRITE Negative Negative [facility] Leukocyte esterase, ur Negative Negative [facility] Urine (Urine) 04/11/2019 8:0 0 AM EDT 04/11/2019 8:22 AM EDT us Ralf Landon DO LAB URINE ORDERABLES Final R esult Performing Organization Address [facility] Co de Phone Number [address] [address] * PSA (screening) (04/11/2019 8:00 AM EDT) PSA 0.83 0 - 4.00 ng/mL [facility] Blood 04/11/2019 8:00 AM EDT 04/11/2019 8:23 AM EDT Ralf Landon DO LAB BLOOD BKR ORDERABLES Fin al Result Performing Organization Address [facility] Co de Phone Number [address] [phone] * Comprehensive metabolic panel (04/11/2019 8:00 AM EDT) SODIUM 135 133 - 146 mmol/L [facility] POTASSIUM 4.5 3.3 - 5.1 mmol/L [facility] CHLORIDE 98 96 - 108 mmol/L [facility] CO2 27 21 - 35 mmol/L [facility] BUN 11 6 - 19 mg/dL [facility] CREATININE 1.00 0.5 - 1.5 mg/dL [facility] GLUCOSE 83 70 - 99 mg/dL [facility] ALBUMIN 4.0 3.9 - 4.8 g/dL [facility] TOTAL PROTEIN 6.7 6.5 - 8.0 g/dL [facility] CALCIUM 9.5 8.4 - 10.3 mg/dL [facility] ALKALINE PHOSPHATASE 60 39 - 117 U/L [facility] TOTAL BILIRUBIN 0.8 0.0 - 1.2 mg/dL [facility] AST 31 0 - 37 U/L [facility] ALT 19 0 - 40 U/L [facility] GLOBULIN 2.7 1 - 4.8 g/dL [facility] EGFR 80 >59 mL/min/1.7 3m2 [facility] Comment:If patient is black, multiply result by 1.159. Estimated glomerular filtration rate calculated using the CKD-EPI equation. ANION GAP 15 10 - 20 mmol/L [facility] Blood 04/11/2019 8:00 AM EDT 04/11/2019 8:23 AM EDT us Ralf Landon DO LAB BLOOD BKR ORDERABLES Fin al Result Performing Organization Address City/State/[facility] Co de Phone Number [address] [phone] * (ABNORMAL) Lipid panel (04/11/2019 8:00 AM EDT) HDL 124 mg/dL [facility] Comment: Interpretation <40 mg/dL: Low HDL cholesterol (major risk factor for CHD) Greater than or equal to 60 mg/dL: High HDL cholesterol ( negative risk factor for CHD) HDL - cholesterol is affected by a number of factors, e.g. smoking, excerise, hormones, sex and age. CHOLESTEROL 215 0 - 240 mg/dL [facility] TRIGLYCERIDES 50 30 - 160 mg/dL [facility] LDL 81 50 - 129 mg/dL [facility] Comment: LDL levels in terms of risk for coronary heart disease: <100 mg/dL: Optimal 100-129 mg/dL: Near or above optimal 130-159 mg/dL: Borderline high 160-189 mg/dL: High >190 mg/dL: Very High CARDIAC RISK RATIO 1.7(L) 3.4 - 5.0 C [facility] Blood 04/11/2019 8:00 AM EDT 04/11/2019 8:23 AM EDT us Ralf Landon DO LAB BLOOD BKR ORDERABLES Fin al Result [facility] [address] [place] [address] * (ABNORMAL) CBC and differential (04/11/2019 8:00 AM EDT) WBC 5.13 3.40 - 11.20 K/uL [facility] RBC 4.34(L) 4.50 - 5.50 M/uL [facility] HGB 14.6 13.0 - 17.0 g/dL [facility] HCT 40.8 40.0 - 51.0 % [facility] PLT 175 130 - 400 K/uL [facility] MCV 94.0 79.0 - 98.0 fL [facility] MCH 33.6 27.0 - 34.8 pg [facility] MCHC 35.8 31.5 - 36.0 g/dL [facility] RDW 11.6 10.8 - 14.6 % [facility] MPV 10.2 9.4 - 12.4 fl [facility] NRBC 0.00 0.00 /100 WBCs [facility] ABSOLUTE NRBC 0.00 0.00 K/uL [facility] DIFF METHOD Auto [facility] NEUTS 53.6 45.30 - 77.70 % [facility] LYMPHS 35.5 12.30 - 39.70 % [facility] MONOS 7.4 4.10 - 12.80 % [facility] EOS 2.5 0 - 7.2 % [facility] BASOS 0.8 0 - 2.80 % [facility] Granulocytes, immature (%) 0.2 0.0 - 0.9 % [facility] ABSOLUTE NEUTS 2.75 1.40 - 7.70 K/uL [facility] ABSOLUTE LYMPHS 1.82 0.60 - 3.20 K/uL [facility] ABSOLUTE MONOS 0.38 0.11 - 0.59 K/uL [facility] ABSOLUTE EOS 0.13 0.01 - 0.50 K/uL [facility] ABSOLUTE BASOS 0.04 0.00 - 0.08 K/uL [facility] Granulocytes, immature 0.01 0.00 - 0.05 K/uL [facility] Blood 04/11/2019 8:00 AM EDT 04/11/2019 8:23 AM EDT us Ralf Landon DO LAB BLOOD BKR ORDERABLES Fin al Result [facility] [address] [place] [address] documented in this encounter Visit Diagnoses Diagnosis [...] documented as of this encounter Care Teams Child Support Specialist Relationship Specialty Start Date End Date Ralf Landon DO [address] [place] [phone] PCP - General 11/16/17 documented as of this encounter Additional Source Comments The information contained in this document represents components of the legal health record. It is not the complete legal health record.[facility]
== END 2025-11-12 10:25 | disposition home or self-care (01) ==
LOC: HO.HMGAL 10:24
PROVIDERS: PCP Internal Medicine; Visit Provider Registered Nurse Emergency
DX: J30.89 Other allergic rhinitis (principal)
CPT/HCPCS: 95117; 95165